=== PATIENT | male | born 1950 | race Caucasian/White ===

== ENCOUNTER → 2016-07-12 | Outpatient (CLI) | payer MEDICARE ==
[2016-07-12 14:55] LABS: ALT 27 U/L (21-72); AST 19 U/L (17-59); Alkaline Phosphatase 63 U/L (38-126); Anion Gap 7 mmol/L; Blood Urea Nitrogen 18 mg/dL (9-20); Calcium 9.6 mg/dL (8.4-10.2); Carbon Dioxide 27 mmol/L (22-30); Chloride 106 mmol/L (98-107); Glucose 92 mg/dL (74-99); Non-African American GFR(MDRD) >60 (>60 ml/min/1.73 sqM); Potassium 5.1 mmol/L (3.5-5.1); Sodium 140 mmol/L (137-145); Total Bilirubin 0.5 mg/dL (0.2-1.3); Total Protein 6.2 g/dL (6.3-8.2)
== END | disposition home or self-care (01) ==
LOC: LABWHC1 14:03
PROVIDERS: ATTEND Internal Medicine
DX: C73 Malignant neoplasm of thyroid gland (principal); E83.52 Hypercalcemia
CPT/HCPCS: 36415; 80053; 83970; 84432; 84439; 84443; 84481

== ENCOUNTER → 2017-07-05 | Outpatient (CLI) | payer MEDICARE ==
[2017-07-05 13:59] LABS: Albumin 3.9 g/dL (3.5-5.0); Calcium 9.5 mg/dL (8.4-10.2); Potassium 5.2 mmol/L (3.5-5.1); Total Bilirubin 0.4 mg/dL (0.2-1.3)
[2017-07-05 14:13] LABS: T4, Free (Free Thyroxine) 1.22 ng/dL (0.78-2.19)
== END | disposition home or self-care (01) ==
LOC: LABWHC1 12:56
PROVIDERS: ATTEND Internal Medicine
DX: C73 Malignant neoplasm of thyroid gland (principal); E78.2 Mixed hyperlipidemia; I10 Essential (primary) hypertension
CPT/HCPCS: 36415; 80053; 80061; 84432; 84439; 84443; 84481; 86800

== ENCOUNTER → 2018-07-09 | Outpatient (CLI) | payer MEDICARE ==
[2018-07-09 18:57] LABS: Albumin/Globulin Ratio 2.5 (1.60-3.17); Calcium 8.8 mg/dL (8.7-10.3); Globulin 1.6 g/dL (1.6-3.3); Potassium 4.9 mmol/L (3.5-5.5); Total Bilirubin 0.4 mg/dL (0.2-1.2); Total Protein 5.6 g/dL (6.2-8.2)
[2018-07-09 19:05] LABS: T4, Free (Free Thyroxine) 1.5 ng/dL (0.80-1.80)
== END | disposition home or self-care (01) ==
LOC: LABWHC1 13:04
PROVIDERS: ATTEND Internal Medicine
DX: C73 Malignant neoplasm of thyroid gland (principal); I10 Essential (primary) hypertension
CPT/HCPCS: 36415; 80053; 84432; 84439; 84443; 84481; 86800

== ENCOUNTER → 2018-10-29 | Outpatient (CLI) | payer MEDICARE, OTHER ==
--- NOTE | 2018-10-30 08:32 | CT ---
EXAMINATION TYPE: CT angio abdomen pelvis DATE OF EXAM: 10/29/2018 COMPARISON: None. HISTORY: Abdominal aortic aneurysm, without rupture. CT DLP: 1513.4 mGycm, Automated Exposure Control for Dose Reduction was Utilized. CONTRAST: CTA scan of the abdomen and pelvis is performed without oral and without and with IV Contrast, patien t injected with 100ml mL of Isovue 370. Aneurysm protocol with 3-D reconstructed images created on an independent workstation and reviewed. FINDINGS: VASCULAR: There is infrarenal abdominal aortic aneurysm measuring up to 3.5 cm AP diameter axial imag e 41 with then some narrowing and larger aneurysm formation just before it iliac bifurcation, the abd ominal aorta measures 4.7 x 4.6 cm transversely axial image 51. There is mild to moderate peripheral mixed plaque in the aorta. There is patent celiac artery and SMA with [id number] calcified plaq ue and patent bilateral single renal arteries with mild to moderate calcified plaque. No significant stenosis is present. Patent JULISA is visualized axial image 44. Aneurysm does not extend into common il iac arteries which have mild to moderate calcified plaque extending into internal and external iliac branches without significant stenosis. Mild to moderate calcified plaque is seen in common femoral ar teries bilaterally without significant stenosis. Length of the aneurysm is roughly 8 cm with 'bilobed ' or 'snowman' shape present. LUNG BASES: Coronary artery calcification in the RCA distribution is present. Overlying sternal wires are noted however likely product of CABG procedure. LIVER/GB: No significant abnormality is appreciated. PANCREAS: No significant abnormality is seen. SPLEEN: No significant abnormality is seen. ADRENALS: Low dense nodularity to both adrenal glands is consistent with benign lipid rich adenomas. For reference there is 2.2 cm right adrenal mass with Hounsfield units averaging -11 axial image 27. KIDNEYS: Somewhat lobulated contour to the bladder with suspected small left-sided diverticulum axial image 68. BOWEL: Incidental normal-appearing appendix from cecum anteriorly. PROSTATE/SEMINAL VESICLES: Enlarged prostate gland consistent with BPH bulging of bladder base. LYMPH NODES: No greater than 1cm abdominal or pelvic lymph nodes are appreciated. OSSEOUS STRUCTURES: Multilevel spurring in the spine. Facet arthropathy lower lumbar levels. OTHER: No significant additional abnormality is seen. IMPRESSION: Confirmation of AAA snowman in shape measuring roughly 8 cm in length without iliac arter y extension, aneurysm measures up to 4.7 cm in diameter as detailed above.
== END | disposition home or self-care (01) ==
LOC: RADCTMAIN 16:16
PROVIDERS: ATTEND Internal Medicine Interventional Cardiology
DX: I71.4 Abdominal aortic aneurysm, without rupture (principal)
CPT/HCPCS: 82565; 84520; 36415; 74174; Q9967

== ENCOUNTER 2018-12-18 07:30 | Inpatient (IN) | payer MEDICARE, OTHER ==
[2018-12-14 10:14] VITALS: BMI 32.6
[~2018-12-18 07:30] MED LIST: ALPRAZolam 0.25 MG TAB PO PRN; SODIUM CHLORIDE 0.9% 1,000 ML in EMPTY BAG 1 BAG IV ONE
[2018-12-18] MEDS ORDERED: ROPIVACAINE 0.2%-NS ON-Q PUMP 1,090 MG, EMPTY PAIN BALL 1 EACH MISCELLANE PRN (10:00)
[2018-12-18] MEDS ORDERED: ePHEDrine SULFATE/0.9% NACL/PF 50 MG/5 ML SYRINGE IV ONE (10:03)
[2018-12-18] MEDS ORDERED: GLYCOPYRROLATE 0.2 MG/ML 2 ML VIAL ONE (10:03)
[2018-12-18] MEDS ORDERED: LIDOCAINE 1% INJ 10MG/ML (20 ML MDV) ONE (10:03)
[2018-12-18] MEDS ORDERED: ROCURONIUM BROMIDE 10 MG/ML 10 ML VIAL IV ONE (10:03)
[2018-12-18] MEDS ORDERED: SUCCINYLCHOLINE CHLORIDE 100 MG/5 ML SYR IV ONE (10:03)
[2018-12-18] MEDS ORDERED: PROTAMINE SULFATE 10 MG/ML 5 ML VIAL IV ONE (10:03)
[2018-12-18] MEDS ORDERED: NEOSTIGMINE 1 MG/ML 10 ML VIAL ONE (10:03)
[2018-12-18] MEDS ORDERED: PROPOFOL 10 MG/ML 20 ML VIAL IV ONE (10:03)
[2018-12-18] MEDS ORDERED: PHENYLEPHRINE-0.9% NACL SYG 1 MG/10 ML SYRINGE ONE (10:03)
[2018-12-18] MEDS ORDERED: SODIUM CHLORIDE 0.9% 100 ML BAG ONE (10:03)
[2018-12-18] MEDS ORDERED: WATER FOR INJECTION, STERILE 10 ML VIAL IV ONE (10:03)
[2018-12-18] MEDS ORDERED: fentaNYL (PF) 50 MCG/ML 2 ML AMP ONE (10:03)
[2018-12-18] MEDS ORDERED: ceFAZolin 1,000 MG VIAL ONE (10:03)
[2018-12-18] MEDS ORDERED: MIDAZOLAM 2 MG/2 ML VIAL ONE (10:03)
[2018-12-18] MEDS ORDERED: HEPARIN SODIUM,PORCINE 10,000 UNIT/ML 1 ML VIAL ONE (10:03)
[2018-12-18] MEDS ORDERED: LACTATED RINGERS 1,000 ML IV ONE (11:30)
[2018-12-18] MEDS ORDERED: IOPAMIDOL-250 100ML BTL INTRAARTER ONE ×2 (12:10→12:11)
[2018-12-18] MEDS ORDERED: SODIUM CHLORIDE 0.9% 1,000 ML IV SCH (12:15)
--- NOTE | 2018-12-18 12:36 | P.PCN ---
Date of Procedure: 12/18/18 Operative Findings: AN AORTIC STENT GRAFT PROCEDURE Performing physician: MD Isiah Canales DO Procedure performed: Successful percutaneous repair of infrarenal abdominal aortic aneurysm using the 26 mm elevation IX with an excellent angiographic results and without any evidence of endoleak. Indication: This is a pleasant 68-year-old gentleman who was diagnosed recently with infrarenal abdominal aortic aneurysm by aortic duplex study. That was subsequently confirmed by a CTA of the aorta which revealed an abdominal aortic aneurysm of 4.6 cm. The patient would like to get the procedure done. Complication: None Level of sedation: The procedure was performed under general anesthesia. The procedure duration was 82 minutes. Procedure description: After obtaining an informed consent the patient was brought to the cardiac biology laboratory assistant. General anesthesia was performed with the NAILING MACHINE OPERATOR in the room. Subsequently we axis both common femoral arteries percutaneous the. That was performed using an 18-gauge Cook needle with adjunctive use of ultrasound. We placed 2. Closed on each side at 10 and 12 clock. The Perclose was performed over an 035 Glidewire. After the Perclose was placed we did place 28-[place]yr[place] 11 cm sheath in both common femoral arteries. At that point anticoagulation was initiated using heparin and the patient was given 6000 use of heparin IV. Continuous ACT monitoring was done throughout the procedure. We decided to go with the main body on the right side. An angiogram initially was performed to measure the arteries length and characterize and anatomy. The angiogram was performed using pigtail catheter and her digital subtraction. The pigtail catheter was placed at the level of the renal arteries. Subsequently we removed the 8-[place]yr[place] 11 cm sheath on the right side after we inserted a stiff 035 Lunderquist wire. After that we loaded 26 mm operation IX aortic body over the guidewire. The aortic body was advanced under fluoroscopy guidance until the implant radiopaque marker where about 1 cm proximal to the intended landing site.. The body was oriented to the desired position for appropriate axis to the contralateral aortic body limp. We retracted the delivery system outer sheath and total the sheath retraction Knob met handle. We verified the aortic body radiopaque marker and long delivery system radiopaque marker to be in the correct position. Subsequently we deployed the first segment of the proximal stent by turning the first stent release Knob quarter turn counterclockwise and then the Knob was pulled out with the attached wire to it. We precisely positioned the implant radiopaque marker at final proximal landing site. Contrast injection was used for verification. Subsequently we retracted the angiographic catheter away from the proximal stent graft. Then we deployed the reminder of the proximal stent by turning the second stent release knob quarter turn counterclockwise and then it was pulled out with the attached wire to it. After that we started injecting the polymer where intermittent fluoroscopy was performed. Subsequently we loaded 20 20 by 120 mm iliac limb delivery system over the contralateral guidewire. Then under fluoroscopy guidance we inserted the contralateral iliac limb till the proximal iliac limb radiopaque marker aligned with the most proximal have fraying of the aortic body. Subsequently we confirmed the proximal and distal iliac limb radiopaque marker at the appropriate location. The contralateral iliac Stoney was then deployed. Subsequently we did perform the same stent on the ipsilateral limb but this time using 18 x 1 20 limb delivery system. We did balloon the aortic stent graft using Q 50 balloon. Iliac limbs well balloon and using 10 x 40 mm balloon. The final angiographic results which was performed using pigtail catheter showed no evidence of endoleak. Subsequently we did deploy the 2 Perclose with good hemostasis by the end. The procedure was completed without any complication. Postprocedure management: ICU admission Monitor the blood pressure Follow-up with the patient
[2018-12-18 13:31] LABS: Glucose,Whole Blood 85 mg/dL (75-99)
[2018-12-18] MEDS ORDERED: hydrALAZINE HCL 20 MG/ML 1 ML VIAL IVP PRN (14:25)
--- NOTE | 2018-12-18 15:40 | IR ---
EXAMINATION TYPE: IR oil tanker captain aorta DATE OF EXAM: 12/18/2018 COMPARISON: NONE HISTORY: Fluoroscopy time. Fluoroscopy was provided to the referring clinician.
[2018-12-18] MEDS: CARVEDILOL 12.5 MG TAB PO SCH (18:00)
[2018-12-18] MEDS: VIT A,C & E-LUTEIN-MINERALS 1 EACH TAB PO SCH (20:12)
[2018-12-18] MEDS ORDERED: ATORVASTATIN 40 MG TAB PO SCH (21:00)
[2018-12-18] MEDS ORDERED: LOSARTAN 50 MG TAB PO SCH (21:00)
[2018-12-19 05:11] LABS: Basophils # (A) 0.1 k/uL (0-0.2); Basophils % (A) 1 %; Eosinophils # (A) 0.5 k/uL (0-0.7); Eosinophils % (A) 3 %; HCT 41.2 % (39.0-53.0); HGB 13.8 gm/dL (13.0-17.5); Lymphocytes # (A) 1.6 k/uL (1.0-4.8); Lymphocytes % (A) 11 %; MCH 34.9 pg (25.0-35.0); MCHC 33.6 g/dL (31.0-37.0); MCV 103.9 fL (80.0-100.0); Macrocytosis Slight; Mean Platelet Volume 7.4; Monocytes # (A) 0.8 k/uL (0-1.0); Monocytes % (A) 5 %; Neutrophils # (A) 11.3 k/uL (1.3-7.7); Neutrophils % (A) 79 %; Platelet Count 185 k/uL (150-450); RBC 3.96 m/uL (4.30-5.90); RDW 12.6 % (11.5-15.5); WBC 14.4 k/uL (3.8-10.6)
[2018-12-19 05:20] LABS: African American GFR (CKD) >90 (>60 ml/min/1.73 sqM)
[2018-12-19] MEDS: CARVEDILOL 12.5 MG TAB PO SCH (06:17)
[2018-12-19] MEDS ORDERED: LEVOTHYROXINE 75 MCG TAB PO SCH (06:30)
[2018-12-19 07:20] LABS: Anion Gap 7 mmol/L; Blood Urea Nitrogen 14 mg/dL (9-20); Carbon Dioxide 24 mmol/L (22-30); Chloride 105 mmol/L (98-107); Glucose 91 mg/dL (74-99); Potassium 4.2 mmol/L (3.5-5.1); Sodium 136 mmol/L (137-145)
[2018-12-19] MEDS ORDERED: TAMSULOSIN 0.4 MG CAP.ER.24H PO SCH (09:00)
[2018-12-19] MEDS ORDERED: ASPIRIN 81 MG PO SCH (09:00)
[2018-12-19] MEDS ORDERED: MULTIVITAMINS, THERA 1 EACH TAB PO SCH (09:00)
[2018-12-19 09:20] VITALS: TEMP 98.2
[2018-12-19] MEDS: VIT A,C & E-LUTEIN-MINERALS 1 EACH TAB PO SCH (09:24)
[2018-12-19 10:02] VITALS: PULSE 50; RESP 15
--- NOTE | 2018-12-19 11:09 | P.DS ---
Providers Date of admission: 12/18/18 07:44 Attending physician: Jewel Altman Consults: 12/18/18 05:59 Consult to Anesthesia Routine Consulting Provider: Anesthesia,Services Consult Reason/Comments: General anesthesia for Aortic Stent procedure Primary care physician: Marley Bautista [facility] Course: This is a very pleasant 68-year-old gentleman who underwent yesterday successful percutaneous repair of infrarenal abdominal aortic aneurysm using the 26 mm Ovation device with an excellent results and without any evidence of endoleak. The procedure was performed from the right and left groin and we did perform hemostasis using Perclose. I'll follow-up with the patient today, he is doing good and he is asymptomatic. Both groins are soft and nontender and without any bruises. The patient is going to be discharged home on the medication he came in with and I will follow-up with the patient next week in the office. Plan - Discharge Summary Discharge Rx Participant: No New Discharge Prescriptions: Continue Tamsulosin [Flomax] 0.4 mg PO DAILY Losartan Potassium [Cozaar] 100 mg PO HS Levothyroxine Sodium [Synthroid] 150 mcg PO DAILY Carvedilol [Coreg] 25 mg PO BID Atorvastatin [Lipitor] 40 mg PO HS Multivitamins, Thera [Multivitamin (formulary)] 1 tab PO DAILY Fish Oil/Dha/Epa [Fish Oil 1,200 mg Fish Oil] 1 each PO HS Aspirin [Adult Low Dose Aspirin EC] 81 mg PO DAILY Vit C/E/Zn/Coppr/Lutein/Zeaxan [Preservision Areds 2 Softgel] 1 each PO BID Discharge Medication List Aspirin [Adult Low Dose Aspirin EC] 81 mg PO DAILY 12/14/18 [History] Atorvastatin [Lipitor] 40 mg PO HS 12/14/18 [History] Carvedilol [Coreg] 25 mg PO BID 12/14/18 [History] Fish Oil/Dha/Epa [Fish Oil 1,200 mg Fish Oil] 1 each PO HS 12/14/18 [History] Levothyroxine Sodium [Synthroid] 150 mcg PO DAILY 12/14/18 [History] Losartan Potassium [Cozaar] 100 mg PO HS 12/14/18 [History] Multivitamins, Thera [Multivitamin (formulary)] 1 tab PO DAILY 12/14/18 [History] Tamsulosin [Flomax] 0.4 mg PO DAILY 12/14/18 [History] Vit C/E/Zn/Coppr/Lutein/Zeaxan [Preservision Areds 2 Softgel] 1 each PO BID 12/14/18 [History] Follow up Appointment(s)/Referral(s): Jewel Altman MD [STAFF PHYSICIAN] - 12/25/18 1:00 pm (MondayDecember 25 at 1:00pm ) Patient Instructions/Handouts: Endovascular Aneurysm Repair of Abdominal Aorta (DC)
[2018-12-19 11:21] VITALS: BP 109/78
== END 2018-12-19 11:51 | disposition home or self-care (01) | DRG 269 ==
LOC: 2ORMAIN 07:44 → 2SICU 12:07
PROVIDERS: ADMIT Internal Medicine Interventional Cardiology; ATTEND Internal Medicine Interventional Cardiology
PROC: 04V03DZ Restriction of Abdominal Aorta with Intraluminal Device, Percutaneous Approach (ICD-10-PCS; principal; 2018-12-18 09:50)
DX: I71.4 Abdominal aortic aneurysm, without rupture (principal); I42.9 Cardiomyopathy, unspecified; I65.22 Occlusion and stenosis of left carotid artery; R40.2363 Coma scale, best motor response, obeys commands, at hospital admission; R40.2143 Coma scale, eyes open, spontaneous, at hospital admission; R40.2253 Coma scale, best verbal response, oriented, at hospital admission; I10 Essential (primary) hypertension; I25.10 Atherosclerotic heart disease of native coronary artery without angina pectoris; E78.5 Hyperlipidemia, unspecified; E78.00 Pure hypercholesterolemia, unspecified; I25.2 Old myocardial infarction; Z79.82 Long term (current) use of aspirin; Z79.890 Hormone replacement therapy; Z79.899 Other long term (current) drug therapy; Z95.1 Presence of aortocoronary bypass graft; Z87.891 Personal history of nicotine dependence; Z86.79 Personal history of other diseases of the circulatory system; Z82.49 Family history of ischemic heart disease and other diseases of the circulatory system
CPT/HCPCS: 80048; 85025; 85347; 86850; 86900; 86901; 86920

== ENCOUNTER → 2019-01-08 | Outpatient (CLI) | payer MEDICARE, OTHER ==
[2019-01-08 18:29] LABS: African American GFR (CKD) 70.6 (60.0-200.0); Albumin/Globulin Ratio 2.67 (1.60-3.17); Anion Gap 4.4 mmol/L (4.00-12.00); BUN/Creat Ratio 13.33 Ratio (12.00-20.00); Calcium 9.5 mg/dL (8.7-10.3); Carbon Dioxide 29.6 mmol/L (21.6-31.8); Globulin 1.5 g/dL (1.6-3.3); Potassium 4.8 mmol/L (3.5-5.5); Total Bilirubin 0.4 mg/dL (0.2-1.2); Total Protein 5.5 g/dL (6.2-8.2)
[2019-01-08 18:35] LABS: T4, Free (Free Thyroxine) 1.5 ng/dL (0.80-1.80)
== END | disposition home or self-care (01) ==
LOC: LABWHC1 12:32
PROVIDERS: ATTEND Internal Medicine
DX: I10 Essential (primary) hypertension (principal); C73 Malignant neoplasm of thyroid gland
CPT/HCPCS: 36415; 80053; 84432; 84439; 84443; 84481

== ENCOUNTER → 2019-02-05 | Outpatient (CLI) | payer MEDICARE, OTHER ==
--- NOTE | 2019-02-05 12:22 | CT ---
EXAMINATION TYPE: CT angio abdomen pelvis DATE OF EXAM: 02/05/2019 COMPARISON: CTA abdomen and pelvis October 29, 2018 HISTORY: Follow up stent placement done in November 2018 CT DLP: 2786.8 mGycm, Automated Exposure Control for Dose Reduction was Utilized. CONTRAST: CTA scan of the abdomen and pelvis is performed without oral and without and with IV Contrast, patien t injected with 100 mL of Isovue 370. Three-D reconstructed images are created by workstation and rev iewed. Stent graft protocol. FINDINGS: VASCULAR: Persistent focal [place] infrarenal AAA measuring up to 4.0 cm AP diameter axial image 24 se alexi 10 (increased in size from 3.5 cm prior study image 41 series 5) with second larger aneurysm com ponent inferior to this measuring 4.8 x 4.5 cm image 34, not significantly changed in size from prior . There is new aortobiiliac stent graft beginning before celiac artery origin. There is a patent floyd ac artery, SMA, bilateral single renal arteries with persistent moderate peripheral calcified plaque along the course of the SMA. Patent JULISA is redemonstrated. Dynamic imaging shows patency of the stent graft into internal and external iliac artery branches bilaterally which show persistent moderate pl aque without significant stenosis. Eltm-ye-[id number] peripheral plaque in the femoral arteries of bila teral groin is redemonstrated. There is abnormal enhancement anterior to the graft at site of more pr oximal elongated aneurysm axial image 42 series 7. This eventually becomes less dense on delayed imag es. The area of concern measures roughly 12 x 9 mm with curvilinear shape. No definitive abnormal fee ding vessel identified. LUNG BASES: Redemonstration of partial visualization of sternal wires from CABG procedure. LIVER/GB: No significant abnormality is appreciated. PANCREAS: No significant abnormality is seen. SPLEEN: No significant abnormality is seen. ADRENALS: Stable low density adrenal masses with Hounsfield units less than 10 on precontrast images consistent with benign lipid rich adenomas. KIDNEYS: No renal calculi bilaterally. Symmetric cortical medullary uptake and excretion is seen wit hout hydronephrosis bilaterally. BOWEL: Incidental normal gas filled appendix from cecum right lower quadrant. PROSTATE/SEMINAL VESICLES: Enlarged prostate gland consistent with BPH bulges on bladder base. LYMPH NODES: No greater than 1cm abdominal or pelvic lymph nodes are appreciated. OSSEOUS STRUCTURES: Facet arthropathy lower lumbar levels redemonstrated. OTHER: No significant additional abnormality is seen. IMPRESSION: New aortobiiliac stent graft which is patent. Redemonstration of [place] snowman type shap ed aneurysm. The more proximal component shows evidence of endoleak and increased size from prior fahad dy. The larger distal component is stable.
== END | disposition home or self-care (01) ==
LOC: RADCTMAIN 09:52
PROVIDERS: ATTEND Internal Medicine Interventional Cardiology
DX: I71.4 Abdominal aortic aneurysm, without rupture (principal)
CPT/HCPCS: 82565; 84520; 36415; 74174; Q9967

== ENCOUNTER → 2020-03-02 | Outpatient (CLI) | payer MEDICARE, OTHER ==
[2020-03-02 15:06] LABS: T4, Free (Free Thyroxine) 1.31 ng/dL (0.78-2.19)
--- NOTE | 2020-03-02 16:01 | CT ---
EXAMINATION TYPE: CT angio abdomen pelvis DATE OF EXAM: 03/02/2020 COMPARISON: CTA aorta February 05, 2019 HISTORY: Abdominal aortic aneurysm, without rupture, with stent CT DLP: 1917.9 mGycm, Automated Exposure Control for Dose Reduction was Utilized. CONTRAST: CTA scan of the abdomen and pelvis is performed without oral and without and with IV Contrast, patien t injected with 100 mL of Isovue 370. Stent graft protocol with 3-D reconstruction images created and independent workstation and reviewed. FINDINGS: VASCULAR: Persistent focal enterprise infrarenal AAA measuring up to 4.0 .3.9 cm AP diameter axial image 28 series 3 is stable from most recent study with second larger aneurysm component inferior to this m easuring 4.8 x 4 4.6 cm axial image 36, not significantly changed in size from most recent prior. The re is persistent aortobiiliac stent graft beginning before celiac artery origin. There is a patent ce liac artery, SMA, and bilateral single renal arteries with persistent moderate peripheral calcified p laque along the course of the SMA. Dynamic imaging shows patency of the stent graft into internal and external iliac artery branches bilaterally which show persistent moderate plaque without significant stenosis. Moderate mixed peripheral plaque in the femoral arteries of bilateral groin is redemonstra rhonda. There is persistent focus of abnormal enhancement anterior to the graft at site of more proximal elongated in AP diameter aneurysm axial image 34 series 7. This eventually becomes less dense on del ayed images. The area of concern measures slightly smaller versus prior study with nodular shaped sup eriorly and more curvilinear shape inferiorly on axial images 35 and 36 respectively sagittal images show 2.3 cm craniocaudal length of the area of concern image 27 series 15. This is an regional wall w as suspected patent JULISA but may be a tiny feeding lumbar vessel. No new areas of abnormal enhancement outside stent graft within the aorta identified. LUNG BASES: Redemonstration of coronary artery calcification in the RCA distribution. LIVER/GB: No significant abnormality is appreciated. PANCREAS: No significant abnormality is seen. SPLEEN: No significant abnormality is seen. ADRENALS: Stable low density adrenal masses with Hounsfield units less than 10 on precontrast images consistent with benign lipid rich adenomas bilaterally. KIDNEYS: No renal calculi bilaterally. Symmetric cortical medullary uptake and excretion is seen wit hout hydronephrosis bilaterally. No new cortical thinning. BOWEL: No suspicious abnormality. PROSTATE/SEMINAL VESICLES: Enlarged prostate gland consistent with BPH bulges on bladder base is rede monstrated. LYMPH NODES: No greater than 1cm abdominal or pelvic lymph nodes are appreciated. OSSEOUS STRUCTURES: Facet arthropathy lower lumbar levels redemonstrated. OTHER: Small fat-containing right inguinal hernia redemonstrated. IMPRESSION: Persistent aortobiiliac stent graft which is patent. Redemonstration of enterprise snowman ty pe shaped aneurysm. The more proximal component shows persistent evidence of endoleak, suspected type II type. No significant change in size of aneurysm noted from most recent CTA.
== END | disposition home or self-care (01) ==
LOC: RADCTMAIN 13:42
PROVIDERS: ATTEND Internal Medicine Interventional Cardiology
DX: I71.4 Abdominal aortic aneurysm, without rupture (principal); C73 Malignant neoplasm of thyroid gland; Z95.828 Presence of other vascular implants and grafts
CPT/HCPCS: 84439; 84481; 82565; 84443; 84520; 84432; 36415; 74174; Q9967

== ENCOUNTER 2020-09-04 02:04 | Inpatient (IN) | payer MEDICARE, OTHER ==
[2020-09-04] MEDS ORDERED: DILTIAZEM DRIP BOLUS FROM BAG 1 MG SOLN IV ONE (02:41)
[2020-09-04] MEDS ORDERED: ENOXAPARIN 100 MG/ML SYRINGE SQ STA (02:41)
[2020-09-04] MEDS ORDERED: DILTIAZEM 125 MG in SODIUM CHLORIDE 0.9% 100 ML IV SCH (02:45)
[2020-09-04 02:50] LABS: Basophils # (A) 0.1 k/uL (0-0.2); Basophils % (A) 1 %; Eosinophils # (A) 0.4 k/uL (0-0.7); Eosinophils % (A) 3 %; HCT 46.4 % (39.0-53.0); Lymphocytes # (A) 3.3 k/uL (1.0-4.8); Lymphocytes % (A) 26 %; MCH 33.7 pg (25.0-35.0); MCHC 32.3 g/dL (31.0-37.0); MCV 104.3 fL (80.0-100.0); Macrocytosis Slight; Mean Platelet Volume 8.5; Monocytes # (A) 0.6 k/uL (0-1.0); Monocytes % (A) 5 %; Neutrophils # (A) 7.8 k/uL (1.3-7.7); Neutrophils % (A) 63 %; Platelet Count 173 k/uL (150-450); RBC 4.45 m/uL (4.30-5.90); RDW 13.3 % (11.5-15.5); WBC 12.5 k/uL (3.8-10.6)
--- NOTE | 2020-09-04 03:05 | ED ---
Arrhythmia/Palpitations HPI - General Chief Complaint: Arrhythmia/Palpitations Stated Complaint: AFib Time Seen by Provider: 09/04/20 02:21 Source: patient, EMS Mode of arrival: EMS Limitations: no limitations - History of Present Illness Initial Comments: This patient is a 70-year-old man who presents with the concern that he has gone back into atrial fibrillation. The patient states that he had some brief atrial fibrillation after his coronary bypass operation years ago. Tonight he experienced similar symptoms. He was lying in bed and he experienced some pressure at the base of his neck and funny feeling at the upper portion of his chest. Patient denies kaylin pain. No dyspnea, diaphoresis, nausea or vomiting. MD Complaint: atrial fibrillation -: hour(s) Context: occurred during rest Arrhythmia History: atrial fibrillation Associated Symptoms: denies other symptoms - Related Data Home Medications Medication Instructions Recorded Confirmed Aspirin [Adult Low Dose Aspirin EC] 81 mg PO DAILY 12/14/18 09/04/20 Atorvastatin [Lipitor] 40 mg PO HS 12/14/18 09/04/20 Carvedilol [Coreg] 25 mg PO BID 12/14/18 09/04/20 Fish Oil/Dha/Epa [Fish Oil 1,200 1 cap PO HS 12/14/18 09/04/20 mg Fish Oil] Levothyroxine Sodium [Synthroid] 150 mcg PO DAILY 12/14/18 09/04/20 Multivitamins, Thera [Multivitamin 1 tab PO DAILY 12/14/18 09/04/20 (formulary)] Tamsulosin [Flomax] 0.4 mg PO DAILY 12/14/18 09/04/20 Vit C/E/Zn/Coppr/Lutein/Zeaxan 1 cap PO BID 12/14/18 09/04/20 [Preservision Areds 2 Softgel] Previous Rx's Medication Instructions Recorded Apixaban [Eliquis] 5 mg PO BID #60 tab 09/04/20 Famotidine [Pepcid] 20 mg PO BID #30 tablet 09/04/20 Losartan Potassium [Cozaar] 50 mg PO HS #0 09/04/20 Allergies Allergy/AdvReac Type Severity Reaction Status Date / Time No Known Allergies Allergy Verified 09/04/20 06:55 Review of Systems ROS Statement: Those systems with pertinent positive or pertinent negative responses have been documented in the HPI. ROS Other: All systems not noted in ROS Statement are negative. Constitutional: Denies: fever, chills ENT: Reports: as per HPI, throat pain Respiratory: Denies: cough, dyspnea, wheezes, hemoptysis Cardiovascular: Denies: chest pain, palpitations, orthopnea, edema, syncope Gastrointestinal: Denies: abdominal pain, nausea, vomiting Genitourinary: Denies: dysuria, hematuria Musculoskeletal: Denies: back pain Skin: Denies: rash Neurological: Denies: headache, weakness, numbness Past Medical History Past Medical History: Cancer, Hyperlipidemia, Hypertension, Myocardial Infarction ([place]), Prostate Disorder, Thyroid Disorder Additional Past Medical History / Comment(s): "micro-cancer thyroid". aneurysm Last Myocardial Infarction Date:: 2007 History of Any Multi-Drug Resistant Organisms: None Reported Past Surgical History: Coronary Bypass/CABG Additional Past Surgical History / Comment(s): throidectomy, triple bypass,parathyroid removed Past Anesthesia/Blood Transfusion Reactions: No Reported Reaction Past Psychological History: No Psychological Hx Reported Past Alcohol Use History: None Reported Additional Past Alcohol Use History / Comment(s): smoker for 20 years 1ppd quit 2007 Past Drug Use History: None Reported - Past Family History Brother(s) Additional Family Medical History / Comment(s): 2 brothers aneurysm-1 General Exam Limitations: no limitations General appearance: alert, in no apparent distress Head exam: Present: atraumatic, normocephalic Eye exam: Present: normal appearance. Absent: scleral icterus, conjunctival injection Neck exam: Present: normal inspection Respiratory exam: Present: normal lung sounds bilaterally. Absent: respiratory distress, wheezes, rales, rhonchi, stridor Cardiovascular Exam: Present: tachycardia, irregular rhythm, systolic murmur. Absent: diastolic murmur, rubs, gallop GI/Abdominal exam: Present: soft. Absent: distended, tenderness, guarding, rebound, rigid, mass Extremities exam: Present: normal inspection, normal capillary refill. Absent: pedal edema, calf tenderness Back exam: Present: normal inspection. Absent: CVA tenderness (R), CVA tender ness (L) Neurological exam: Present: alert Skin exam: Present: warm, dry, intact, normal color. Absent: rash Course Vital Signs 09/04/20 09/04/20 09/04/20 02:10 03:10 04:10 Pulse Rate 111 H 120 H 92 Pulse Rate [ Etl Consultant ] Respiratory 16 16 16 Rate Blood Pressure 120/97 121/78 95/66 Blood Pressure [Right Arm] O2 Sat by Pulse 98 98 97 Oximetry 09/04/20 09/04/20 09/04/20 04:52 05:10 06:10 Pulse Rate 87 92 Pulse Rate [ Etl Consultant ] Respiratory 18 16 16 Rate Blood Pressure 98/66 92/61 Blood Pressure [Right Arm] O2 Sat by Pulse 96 95 99 Oximetry 09/04/20 09/04/20 08:00 12:00 Pulse Rate Pulse Rate [ 55 L 65 Etl Consultant ] Respiratory 18 18 Rate Blood Pressure Blood Pressure 116/85 116/85 [Right Arm] O2 Sat by Pulse 96 98 Oximetry EKG Findings - EKG Results: EKG: interpreted by ANAY, normal axis EKG shows: atrial fibrillation (With PVC , Rate 124 bpm) - IA, Pacemaker, Normal: Myocardial infarction: inferior IA (old age indeterminate) (Possible old inferior infarct) Medical Decision Making - Lab Data Result diagrams: 09/04/20 02:35 09/04/20 02:35 Lab Results 09/04/20 09/04/20 09/04/20 Range/Units 02:35 02:35 02:35 WBC 12.5 H (3.8-10.6) k/uL RBC 4.45 (4.30-5.90) m/uL Hgb 15.0 (13.0-17.5) gm/dL Hct 46.4 (39.0-53.0) % MCV 104.3 H (80.0-100.0) fL MCH 33.7 (25.0-35.0) pg MCHC 32.3 (31.0-37.0) g/dL RDW 13.3 (11.5-15.5) % Plt Count 173 (150-450) k/uL MPV 8.5 Neutrophils % 63 % Lymphocytes % 26 % Monocytes % 5 % Eosinophils % 3 % Basophils % 1 % Neutrophils # 7.8 H (1.3-7.7) k/uL Lymphocytes # 3.3 (1.0-4.8) k/uL Monocytes # 0.6 (0-1.0) k/uL Eosinophils # 0.4 (0-0.7) k/uL Basophils # 0.1 (0-0.2) k/uL Macrocytosis Slight PT 10.0 (9.0-12.0) sec INR 0.9 (<1.2) APTT 24.6 (22.0-30.0) sec Sodium 140 (137-145) mmol/L Potassium 3.8 (3.5-5.1) mmol/L Chloride 108 H (98-107) mmol/L Carbon Dioxide 26 (22-30) mmol/L Anion Gap 6 mmol/L BUN 21 H (9-20) mg/dL Creatinine 0.96 (0.66-1.25) mg/dL Est GFR (CKD-EPI)AfAm >90 (>60 ml/min/1.73 sqM) Est GFR (CKD-EPI)NonAf 79 (>60 ml/min/1.73 sqM) Glucose 110 H (74-99) mg/dL Calcium 9.4 (8.4-10.2) mg/dL Magnesium 2.2 (1.6-2.3) mg/dL Total Bilirubin 0.2 (0.2-1.3) mg/dL AST 24 (17-59) U/L ALT 17 (4-49) U/L Alkaline Phosphatase 81 (38-126) U/L Troponin I (0.000-0.034) ng/mL Total Protein 5.9 L (6.3-8.2) g/dL Albumin 3.7 (3.5-5.0) g/dL 09/04/20 Range/Units 02:35 WBC (3.8-10.6) k/uL RBC (4.30-5.90) m/uL Hgb (13.0-17.5) gm/dL Hct (39.0-53.0) % MCV (80.0-100.0) fL MCH (25.0-35.0) pg MCHC (31.0-37.0) g/dL RDW (11.5-15.5) % Plt Count (150-450) k/uL MPV Neutrophils % % Lymphocytes % % Monocytes % % Eosinophils % % Basophils % % Neutrophils # (1.3-7.7) k/uL Lymphocytes # (1.0-4.8) k/uL Monocytes # (0-1.0) k/uL Eosinophils # (0-0.7) k/uL Basophils # (0-0.2) k/uL Macrocytosis PT (9.0-12.0) sec INR (<1.2) APTT (22.0-30.0) sec Sodium (137-145) mmol/L Potassium (3.5-5.1) mmol/L Chloride (98-107) mmol/L Carbon Dioxide (22-30) mmol/L Anion Gap mmol/L BUN (9-20) mg/dL Creatinine (0.66-1.25) mg/dL Est GFR (CKD-EPI)AfAm (>60 ml/min/1.73 sqM) Est GFR (CKD-EPI)NonAf (>60 ml/min/1.73 sqM) Glucose (74-99) mg/dL Calcium (8.4-10.2) mg/dL Magnesium (1.6-2.3) mg/dL Total Bilirubin (0.2-1.3) mg/dL AST (17-59) U/L ALT (4-49) U/L Alkaline Phosphatase (38-126) U/L Troponin I <0.012 (0.000-0.034) ng/mL Total Protein (6.3-8.2) g/dL Albumin (3.5-5.0) g/dL Critical Care Time Critical Care Time: Yes (30 minutes) Disposition Clinical Impression: Atrial fibrillation Disposition: ADMITTED IP TO THIS [facility] Condition: Good
[2020-09-04 03:11] LABS: ALT 17 U/L (4-49); AST 24 U/L (17-59); African American GFR (CKD) >90 (>60 ml/min/1.73 sqM); Albumin 3.7 g/dL (3.5-5.0); Alkaline Phosphatase 81 U/L (38-126); Anion Gap 6 mmol/L; Blood Urea Nitrogen 21 mg/dL (9-20); Calcium 9.4 mg/dL (8.4-10.2); Carbon Dioxide 26 mmol/L (22-30); Chloride 108 mmol/L (98-107); Glucose 110 mg/dL (74-99); Magnesium 2.2 mg/dL (1.6-2.3); Non-African American GFR(CKD) 79 (>60 ml/min/1.73 sqM); Potassium 3.8 mmol/L (3.5-5.1); Sodium 140 mmol/L (137-145); Total Bilirubin 0.2 mg/dL (0.2-1.3); Total Protein 5.9 g/dL (6.3-8.2)
[2020-09-04 03:28] LABS: Partial Thromboplastin Time 24.6 sec (22.0-30.0)
[2020-09-04 03:29] LABS: INR 0.9 (<1.2)
--- NOTE | 2020-09-04 03:30 | XR ---
EXAMINATION TYPE: XR chest 1V portable DATE OF EXAM: 09/04/2020 COMPARISON: 01/04/2010 HISTORY: Dysrhythmia. TECHNIQUE: FINDINGS: There is no heart failure. There is slight coarsening of interstitial markings. There are s ternal wires. Lisfranc angles are clear. Heart size is fairly normal. There are chest leads. IMPRESSION: Minimal pulmonary fibrotic changes. No acute lung disease. Lung markings increased adam red to old exam.
[2020-09-04] MEDS ORDERED: NITROGLYCERIN SL TABS 0.4 MG TAB SUBLINGUAL PRN (04:33)
[2020-09-04] MEDS ORDERED: SODIUM CHLORIDE 0.9% 1,000 ML IV SCH (04:45)
[2020-09-04] MEDS ORDERED: ENOXAPARIN 100 MG/ML SYRINGE SQ SCH ×2 (04:45→15:00)
[2020-09-04] MEDS ORDERED: LEVOTHYROXINE 75 MCG TAB PO SCH (06:30)
[2020-09-04] MEDS ORDERED: TAMSULOSIN 0.4 MG CAP.ER.24H PO SCH (09:00)
[2020-09-04] MEDS ORDERED: VIT A,C & E-LUTEIN-MINERALS 1 EACH TAB PO SCH (09:00)
[2020-09-04] MEDS ORDERED: carvediloL 12.5 MG TAB PO SCH (09:00)
[2020-09-04] MEDS ORDERED: ASPIRIN 81 MG PO SCH (09:00)
[2020-09-04 10:12] VITALS: BP 116/85; RESP 18
--- NOTE | 2020-09-04 12:44 | P.CRDCN ---
History of Present Illness Consult date: 09/04/20 History of present illness: HISTORY OF PRESENT ILLNESS: This is a 70-year-old male with a past medical history significant for coronary artery disease with history of CABG x 3 in 2007, atrial fibrillation after his CABG, history of infrarenal abdominal aortic aneurysm with endovascular repair, carotid stenosis with previous endarterectomy, hypertension, and hyperlipidemia. Patient follows in the office with Dr. Altman. We have been asked to see the patient in consultation for new onset atrial fibrillation. Patient examined at the bedside. Patient states last night he was restless in bed and was feeling "funny". Patient states he got up and took his vital signs and noticed his heart rate was around 115. Patient suspected he may be in atrial fibrillation again so he came to the emergency room for further evaluation. EKG completed in the emergency room revealed A. fib with RVR. The patient was started on a Cardizem drip. At the time of my examination, the patient has converted to sinus rhythm. His Cardizem drip has been shut off. His heart rate is currently in the 50s. Patient currently denies chest pain or pressure. He denies shortness of breath. He denies dizziness or lightheadedness. He denies feeling palpitations. EKG reveals A. fib with RVR Chest xray minimal pulmonary fibrotic changes. No acute lung disease. Lung markings increased compared to old exam. Laboratory data: WBC 12.5. Hemoglobin 15.0. Platelet count 173. Sodium 140. Potassium 3.8. BUN 21. Creatinine 0.96. Magnesium 2.2. troponin negative 2. Current home cardiac medications include aspirin 81 mg daily, losartan 100 mg at night, carvedilol 25 mg twice a day, and Lipitor 40 mg daily Most recent echocardiogram obtained in May 2017 revealed ejection fraction 50%. Mild tricuspid regurgitation. Patient underwent nuclear stress test in July 2020 at the cardiology office revealing abnormal myocardial perfusion imaging with evidence of fixed defect of moderate size and moderate intensity involving the inferior wall of the left ventricle associated with mild hypokinesia. EF 47%. REVIEW OF SYSTEMS: At the time of my exam: CONSTITUTIONAL: Denies fever or chills. HEENT: Denies blurred vision, vision changes, or eye pain. Denies hemoptysis CARDIOVASCULAR: Denies chest pain. Denies orthopnea. Denies PND. Denies palpitations RESPIRATORY: Denies shortness of breath. GASTROINTESTINAL: Denies abdominal pain. Denies nausea or vomiting. HEMATOLOGIC: Denies bleeding disorders. GENITOURINARY: Denies any blood in urine. SKIN: Denies pruitis. Denies rash. PHYSICAL EXAM: VITAL SIGNS: Reviewed. GENERAL: Well-developed in no acute distress. HEENT: Head is normocephalic. Pupils are equal, round. Sclerae anicteric. Mucous membranes of the mouth are moist. Neck supple. No JVD or thyromegaly LUNGS: Respirations even and unlabored. Lungs essentially clear to auscultation bilaterally. HEART: Regular rate and rhythm. S1 and S2 heard. ABDOMEN: Soft. Nondistended. Nontender. EXTREMITIES: Normal range of motion. No clubbing or cyanosis. Peripheral pulses intact. No lower extremity edema NEUROLOGIC: Awake and alert. Oriented x 3. ASSESSMENT: New-onset atrial fibrillation with RVR Coronary artery disease with previous CABG 3 in 2007 History of infrarenal abdominal aortic aneurysm with endovascular repair History of carotid stenosis with previous endarterectomy Hypertension Hyperlipidemia PLAN: Obtain 2-D echo to assess cardiac structure and function Resume home cardiac medications Continue therapeutic dose of Lovenox Case management consulted to verify coverage for anticoagulation Further recommendations pending patient course Nurse practitioner note has been reviewed by physician. Signing provider agrees with the documented findings, assessment, and plan of care. Past Medical History Past Medical History: Cancer, Hyperlipidemia, Hypertension, Myocardial Infarction ([place]), Prostate Disorder, Thyroid Disorder Additional Past Medical History / Comment(s): "micro-cancer thyroid". aneurysm Last Myocardial Infarction Date:: 2007 History of Any Multi-Drug Resistant Organisms: None Reported Past Surgical History: Coronary Bypass/CABG Additional Past Surgical History / Comment(s): throidectomy, triple bypass,parathyroid removed Past Anesthesia/Blood Transfusion Reactions: No Reported Reaction Past Psychological History: No Psychological Hx Reported Past Alcohol Use History: None Reported Additional Past Alcohol Use History / Comment(s): smoker for 20 years 1ppd quit 2007 Past Drug Use History: None Reported - Past Family History Brother(s) Additional Family Medical History / Comment(s): 2 brothers aneurysm-1 Medications and Allergies Home Medications Medication Instructions Recorded Confirmed Type Aspirin [Adult Low Dose Aspirin EC] 81 mg PO DAILY 12/14/18 09/04/20 History Atorvastatin [Lipitor] 40 mg PO HS 12/14/18 09/04/20 History Carvedilol [Coreg] 25 mg PO BID 12/14/18 09/04/20 History Fish Oil/Dha/Epa [Fish Oil 1,200 1 cap PO HS 12/14/18 09/04/20 History mg Fish Oil] Levothyroxine Sodium [Synthroid] 150 mcg PO DAILY 12/14/18 09/04/20 History Losartan Potassium [Cozaar] 100 mg PO HS 12/14/18 09/04/20 History Multivitamins, Thera [Multivitamin 1 tab PO DAILY 12/14/18 09/04/20 History (formulary)] Tamsulosin [Flomax] 0.4 mg PO DAILY 12/14/18 09/04/20 History Vit C/E/Zn/Coppr/Lutein/Zeaxan 1 cap PO BID 12/14/18 09/04/20 History [Preservision Areds 2 Softgel] Apixaban [Eliquis] 5 mg PO BID #60 tab 09/04/20 Rx Allergies Allergy/AdvReac Type Severity Reaction Status Date / Time No Known Allergies Allergy Verified 09/04/20 06:55 Physical Exam Vitals: Vital Signs Pulse Pulse Resp BP BP Pulse Ox 09/04/20 08:00 55 L 18 116/85 96 09/04/20 06:10 92 16 92/61 99 09/04/20 05:10 87 16 98/66 95 09/04/20 04:52 18 96 09/04/20 04:10 92 16 95/66 97 09/04/20 03:10 120 H 16 121/78 98 09/04/20 02:10 111 H 16 120/97 98 Intake and Output 09/03/20 09/04/20 09/04/20 22:59 06:59 14:59 Other: Voiding Method Toilet Weight 102.058 kg Results 09/04/20 02:35 09/04/20 02:35 Cardiac Enzymes 09/04/20 09/04/20 09/04/20 Range/Units 02:35 02:35 08:54 AST 24 (17-59) U/L Troponin I <0.012 <0.012 (0.000-0.034) ng/mL Coagulation 09/04/20 Range/Units 02:35 PT 10.0 (9.0-12.0) sec APTT 24.6 (22.0-30.0) sec CBC 09/04/20 Range/Units 02:35 WBC 12.5 H (3.8-10.6) k/uL RBC 4.45 (4.30-5.90) m/uL Hgb 15.0 (13.0-17.5) gm/dL Hct 46.4 (39.0-53.0) % Plt Count 173 (150-450) k/uL Comprehensive Metabolic Panel 09/04/20 Range/Units 02:35 Sodium 140 (137-145) mmol/L Potassium 3.8 (3.5-5.1) mmol/L Chloride 108 H (98-107) mmol/L Carbon Dioxide 26 (22-30) mmol/L BUN 21 H (9-20) mg/dL Creatinine 0.96 (0.66-1.25) mg/dL Glucose 110 H (74-99) mg/dL Calcium 9.4 (8.4-10.2) mg/dL AST 24 (17-59) U/L ALT 17 (4-49) U/L Alkaline Phosphatase 81 (38-126) U/L Total Protein 5.9 L (6.3-8.2) g/dL Albumin 3.7 (3.5-5.0) g/dL Current Medications Generic Name Dose Route Start Last Admin Trade Name Freq PRN Reason Stop Dose Admin Aspirin 81 mg 09/04/20 09:00 09/04/20 10:01 Aspirin 81 Mg PO 81 mg DAILY CARLEE Administration Atorvastatin Calcium 40 mg 09/04/20 21:00 Atorvastatin 40 Mg Tab PO HS CARLEE Carvedilol 25 mg 09/04/20 09:00 Carvedilol 12.5 Mg Tab PO BID CARLEE Enoxaparin Sodium 100 mg 09/04/20 15:00 Enoxaparin 100 Mg/Ml Syringe SQ Q12H CARLEE Sodium Chloride 1,000 mls @ 20 mls/hr 09/04/20 04:45 Saline 0.9% IV .Q24H CARLEE Levothyroxine Sodium 150 mcg 09/04/20 06:30 09/04/20 06:41 Levothyroxine 75 Mcg Tab PO 150 mcg DAILY@0630 CARLEE Administration Losartan Potassium 100 mg 09/04/20 21:00 Losartan 50 Mg Tab PO HS [facility] Multivitamins/Minerals 1 each 09/04/20 09:00 09/04/20 10:01 Vit A,C & R-Ewoahq-Ydiaynof 1 Each Tab PO 1 each BID CARLEE Administration Nitroglycerin 0.4 mg 09/04/20 04:33 Nitroglycerin Sl Tabs 0.4 Mg Tab SUBLINGUAL Q5M PRN Chest Pain Tamsulosin HCl 0.4 mg 09/04/20 09:00 09/04/20 10:01 Tamsulosin 0.4 Mg Cap.Er.24h PO 0.4 mg DAILY CARLEE Administration Intake and Output 09/03/20 09/04/20 09/04/20 22:59 06:59 14:59 Other: Voiding Method Toilet Weight 102.058 kg 09/04/20 02:35 09/04/20 02:35
--- NOTE | 2020-09-04 13:17 | P.HPIM ---
History of Present Illness Patient is a pleasant 68-year-old male with a history of coronary artery bypass grafting in 2007 and atrial fibrillation post CABG proximal A. fib and never had similar episodes came in with complaints of soreness in the throat that he woke up because of burning sensation in the throat. And then patient will check his vitals patient is found to have elevated was because of which patient came to ER and found to have atrial fibrillation. Patient was given a dose of Cardizem and was started on Cardizem drip after which patient converted to sinus rhythm. Patient is not on any anticoagulation patient does take aspirin at home. Patient heart rate is currently in 50s patient takes Coreg to 25 mg twice a day at home patient blood pressure is bit low at this time probably because the Cardizem drip E was on patient is also on 100 mg of losartan dose of which will be decreased patient had EF of around 50% on the echo cardiac and that was done in May 2017 %. Patient chest x-ray showed some fibrotic changes without any pulmonary edema patient did undergo nuclear stress test which showed fixed moderate-sized defect in the inferior wall no other inducible ischemia essentially the stress test was negative. Patient was evaluated by cardiology. Patient is clinically doing well and will be discharged today patient denied any fever chills patient doesn't have any signs or symptoms of sepsis patient doesn't appear to be dehydrated. REVIEW OF SYSTEMS: CONSTITUTIONAL: No fever, no malaise, no fatigue. HEENT: No recent visual problems or hearing problems. Denied any sore throat. CARDIOVASCULAR: no syncope. PULMONARY: No shortness of breath, no cough, no hemoptysis. GASTROINTESTINAL: No diarrhea, no nausea, no vomiting, no abdominal pain. NEUROLOGICAL: No headaches, no weakness, no numbness. HEMATOLOGICAL: Denies any bleeding or petechiae. GENITOURINARY: Denies any burning micturition, frequency, or urgency. MUSCULOSKELETAL/RHEUMATOLOGICAL: Denies any joint pain, swelling, or any muscle pain. ENDOCRINE: Denies any polyuria or polydipsia. The rest of the 14-point review of systems is negative. PHYSICAL EXAMINATION: GENERAL: The patient is alert and oriented x3, not in any acute distress. Well developed, well nourished. HEENT: Pupils are round and equally reacting to light. EOMI. No scleral icterus. No conjunctival pallor. Normocephalic, atraumatic. No pharyngeal erythema. No thyromegaly. CARDIOVASCULAR: S1 and S2 present. No murmurs, rubs, or gallops. PULMONARY: Chest is clear to auscultation, no wheezing or crackles. ABDOMEN: Soft, nontender, nondistended, normoactive bowel sounds. No palpable organomegaly. MUSCULOSKELETAL: No joint swelling or deformity. EXTREMITIES: No cyanosis, clubbing, or pedal edema. NEUROLOGICAL: Gross neurological examination did not reveal any focal deficits. SKIN: No rashes. Assessment and plan -Atrial fibrillation with rapid ventricular rate patient appears to have proximal A. fib patient is presently sinus rhythm will be discharged today and patient was started on Eliquis -Ruled out acute coronary syndromes -Possibility of gastroesophageal reflux disease may explain his symptoms of burning and soreness of the throat at nighttime patient will be given empiric Pepcid twice a day for 2 weeks. -Coronary artery disease and CABG in the past next and-hyperlipidemia -Hypertension next and heparin hypothyroidism -Benign prostatic hypertrophy -She of carotid stenosis with previous endarterectomy in the past -History of infrarenal abdominal aortic aneurysm with endovascular repair Past Medical History Past Medical History: Cancer, Hyperlipidemia, Hypertension, Myocardial Infarction ([place]), Prostate Disorder, Thyroid Disorder Additional Past Medical History / Comment(s): "micro-cancer thyroid". aneurysm Last Myocardial Infarction Date:: 2007 History of Any Multi-Drug Resistant Organisms: None Reported Past Surgical History: Coronary Bypass/CABG Additional Past Surgical History / Comment(s): throidectomy, triple bypass,parathyroid removed Past Anesthesia/Blood Transfusion Reactions: No Reported Reaction Past Psychological History: No Psychological Hx Reported Past Alcohol Use History: None Reported Additional Past Alcohol Use History / Comment(s): smoker for 20 years 1ppd quit 2007 Past Drug Use History: None Reported - Past Family History Brother(s) Additional Family Medical History / Comment(s): 2 brothers aneurysm-1 Medications and Allergies Home Medications Medication Instructions Recorded Confirmed Type Aspirin [Adult Low Dose Aspirin EC] 81 mg PO DAILY 12/14/18 09/04/20 History Atorvastatin [Lipitor] 40 mg PO HS 12/14/18 09/04/20 History Carvedilol [Coreg] 25 mg PO BID 12/14/18 09/04/20 History Fish Oil/Dha/Epa [Fish Oil 1,200 1 cap PO HS 12/14/18 09/04/20 History mg Fish Oil] Levothyroxine Sodium [Synthroid] 150 mcg PO DAILY 12/14/18 09/04/20 History Multivitamins, Thera [Multivitamin 1 tab PO DAILY 12/14/18 09/04/20 History (formulary)] Tamsulosin [Flomax] 0.4 mg PO DAILY 12/14/18 09/04/20 History Vit C/E/Zn/Coppr/Lutein/Zeaxan 1 cap PO BID 12/14/18 09/04/20 History [Preservision Areds 2 Softgel] Apixaban [Eliquis] 5 mg PO BID #60 tab 09/04/20 Rx Famotidine [Pepcid] 20 mg PO BID #30 tablet 09/04/20 Rx Losartan Potassium [Cozaar] 50 mg PO HS #0 09/04/20 09/04/20 Rx Allergies Allergy/AdvReac Type Severity Reaction Status Date / Time No Known Allergies Allergy Verified 09/04/20 06:55 Physical Exam Vitals: Vital Signs Pulse Pulse Resp BP BP Pulse Ox 09/04/20 08:00 55 L 18 116/85 96 09/04/20 06:10 92 16 92/61 99 09/04/20 05:10 87 16 98/66 95 09/04/20 04:52 18 96 09/04/20 04:10 92 16 95/66 97 09/04/20 03:10 120 H 16 121/78 98 09/04/20 02:10 111 H 16 120/97 98 Intake and Output 09/03/20 09/04/20 09/04/20 22:59 06:59 14:59 Other: Voiding Method Toilet Weight 102.058 kg Results CBC & Chem 7: 09/04/20 02:35 09/04/20 02:35 Labs: Abnormal Lab Results - Last 24 Hours (Table) 09/04/20 09/04/20 Range/Units 02:35 02:35 WBC 12.5 H (3.8-10.6) k/uL MCV 104.3 H (80.0-100.0) fL Neutrophils # 7.8 H (1.3-7.7) k/uL Chloride 108 H (98-107) mmol/L BUN 21 H (9-20) mg/dL Glucose 110 H (74-99) mg/dL Total Protein 5.9 L (6.3-8.2) g/dL Thrombosis Risk Factor Assmnt - Choose All That Apply Each Risk Factor Represents 2 Points: Age 61-74 years Each Risk Factor Represents 3 Points: Family history of DVT/PE Thrombosis Risk Factor Assessment Total Risk Factor Score: 5 Thrombosis Risk Factor Assessment Level: High Risk
[2020-09-04 13:42] VITALS: PULSE 65
[2020-09-04] MEDS ORDERED: APIXABAN 5 MG TAB PO SCH (21:00)
[2020-09-04] MEDS ORDERED: ATORVASTATIN 40 MG TAB PO SCH (21:00)
[2020-09-04] MEDS ORDERED: LOSARTAN 50 MG TAB PO SCH (21:00)
[2020-09-05] MEDS ORDERED: ASPIRIN 325 MG TAB PO SCH (09:00)
--- NOTE | 2020-09-06 12:52 | ECHOF ---
Referral Reason:LV function, new afib MEASUREMENTS -------- HEIGHT: 170.2 cm WEIGHT: 102.1 kg BP: RVIDd: 4.2 cm (< 3.3) IVSd: 1.6 cm (0.6 - 1.1) LVIDd: 5.7 cm (3.9 - 5.3) LVPWd: 1.2 cm (0.6 - 1.1) IVSs: 2.1 cm LVIDs: 4.4 cm LVPWs: 1.4 cm LAESV Index (A-L): 38.81 ml/m Ao Diam: 3.2 cm (2.0 - 3.7) AV Cusp: 2.1 cm (1.5 - 2.6) LA Diam: 5.2 cm (2.7 - 3.8) MV EXCURSION: 14.425 mm (> 18.000) MV EF SLOPE: 52 mm/s (70 - 150) EPSS: 1.4 cm MV E Magno: 0.85 m/s MV DecT: 320 ms MV A Magno: 0.78 m/s MV E/A Ratio: 1.09 RAP: 5.00 mmHg RVSP: 28.10 mmHg FINDINGS -------- This was a technically difficult study with suboptimal views. The left ventricular size is normal. There is mild concentric left ventricular hypertrophy. Overa ll left ventricular systolic function is mild-moderately impaired with, an EF between 40 - 45 %. In creased LAP Grade 2 Diastolic Dysfunction. Basal inferior LV wall motion is hypokinetic. Basal i nferoseptal LV wall motion is hypokinetic. The right ventricle is severely enlarged. LA is moderately dilated 34-39 ml/m2 The right atrial size is normal. Lumason used The aortic valve is trileaflet and appears structurally normal. The mitral valve is normal. Mild mitral regurgitation is present. The tricuspid valve appears structurally normal. Mild tricuspid regurgitation present. Right vent ricular systolic pressure is normal at < 35 mmHg. There is no pulmonic regurgitation present. The aortic root size is normal. IVC Not well visulized. There is no pericardial effusion. CONCLUSIONS -------- 1. The left ventricular size is normal. 2. There is mild concentric left ventricular hypertrophy. 3. Overall left ventricular systolic function is mild-moderately impaired with, an EF between 40 - 45 %. 4. Increased LAP Grade 2 Diastolic Dysfunction. 5. Basal inferior LV wall motion is hypokinetic. 6. Basal inferoseptal LV wall motion is hypokinetic. 7. The right ventricle is severely enlarged. 8. LA is moderately dilated 34-39 ml/m2 9. Mild mitral regurgitation is present. 10. Mild tricuspid regurgitation present. 11. There is no pericardial effusion. GLUE CLAMP OPERATOR: Brandy Brunson RDCS
== END 2020-09-04 15:36 | disposition home or self-care (01) | DRG 310 ==
LOC: EC 02:04 → 3SCARD 04:34
PROVIDERS: ADMIT Hospitalist; ATTEND Hospitalist
DX: I48.0 Paroxysmal atrial fibrillation (principal); Z79.01 Long term (current) use of anticoagulants; E78.5 Hyperlipidemia, unspecified; I10 Essential (primary) hypertension; I25.10 Atherosclerotic heart disease of native coronary artery without angina pectoris; I25.2 Old myocardial infarction; N40.0 Benign prostatic hyperplasia without lower urinary tract symptoms; E89.0 Postprocedural hypothyroidism; E89.2 Postprocedural hypoparathyroidism; I07.1 Rheumatic tricuspid insufficiency; R45.1 Restlessness and agitation; Z98.890 Other specified postprocedural states; I49.3 Ventricular premature depolarization; Z79.82 Long term (current) use of aspirin; Z79.890 Hormone replacement therapy; Z79.899 Other long term (current) drug therapy; Z87.891 Personal history of nicotine dependence; Z95.1 Presence of aortocoronary bypass graft; Z86.79 Personal history of other diseases of the circulatory system
CPT/HCPCS: 36415; 71045; 80053; 83735; 84443; 84484; 85025; 85610; 85730; 93005; 93306; 96372; 96374; 99285

== ENCOUNTER → 2020-10-22 | Outpatient (CLI) | payer MEDICARE, OTHER ==
[2020-10-23 01:14] LABS: African American GFR (CKD) 77.3 (60.0-200.0); Albumin 4.3 g/dL (3.80-4.90); Albumin/Globulin Ratio 2.69 (1.60-3.17); Anion Gap 9.8 mmol/L (4.00-12.00); BUN/Creat Ratio 12.73 Ratio (12.00-20.00); Calcium 9.7 mg/dL (8.7-10.3); Carbon Dioxide 25.2 mmol/L (21.6-31.8); Globulin 1.6 g/dL (1.6-3.3); Non-African American GFR(CKD) 66.7 (60.0-200.0); Potassium 4.6 mmol/L (3.5-5.5); Total Bilirubin 0.6 mg/dL (0.3-1.2); Total Protein 5.9 g/dL (6.2-8.2)
[2020-10-23 01:21] LABS: T4, Free (Free Thyroxine) 1.7 ng/dL (0.80-1.80)
== END | disposition home or self-care (01) ==
LOC: LABWHC1 10:40
PROVIDERS: ATTEND Internal Medicine
DX: C73 Malignant neoplasm of thyroid gland (principal); E83.52 Hypercalcemia
CPT/HCPCS: 36415; 80053; 84439; 84443; 84481

== ENCOUNTER → 2021-03-29 | Outpatient (CLI) | payer MEDICARE, OTHER ==
[2021-03-30 01:01] LABS: ALT 18 U/L (10-49); AST 16 U/L (14-35); African American GFR (CKD) 82.7 (60.0-200.0); Albumin 3.9 g/dL (3.8-4.9); Albumin/Globulin Ratio 1.88 (1.60-3.17); Alkaline Phosphatase 80 U/L (41-126); BUN/Creat Ratio 14.42 Ratio (12.00-20.00); Calcium 9.3 mg/dL (8.7-10.3); Carbon Dioxide 24.1 mmol/L (20.0-27.5); Chloride 106 mmol/L (96-109); Globulin 2.1 g/dL (1.6-3.3); Glucose 98 mg/dL (70-110); Non-African American GFR(CKD) 71.4 (60.0-200.0); Potassium 4.6 mmol/L (3.5-5.5); Sodium 142 mmol/L (135-145); Total Bilirubin <0.20 mg/dL (0.30-1.20)
== END | disposition home or self-care (01) ==
LOC: LABWHC1 14:52
PROVIDERS: ATTEND Physician Assistant
DX: I10 Essential (primary) hypertension (principal); C73 Malignant neoplasm of thyroid gland
CPT/HCPCS: 36415; 80053; 84432; 84439; 84443; 84481

== ENCOUNTER → 2021-10-01 | Outpatient (CLI) | payer MEDICARE, OTHER ==
[2021-10-01 18:46] LABS: Albumin 4.1 g/dL (3.8-4.9); Albumin/Globulin Ratio 1.89 (1.60-3.17); Anion Gap 10.4 mmol/L (10.00-18.00); BUN/Creat Ratio 11.72 Ratio (12.00-20.00); Blood Urea Nitrogen 13.6 mg/dL (9.0-27.0); Calcium 9.6 mg/dL (8.7-10.3); Carbon Dioxide 25.2 mmol/L (20.0-27.5); Globulin 2.2 g/dL (1.6-3.3); Non-African American GFR(CKD) 62.1 (60.0-200.0); Potassium 4.5 mmol/L (3.5-5.5); T4, Free (Free Thyroxine) 1.43 ng/dL (0.800-1.800); Total Bilirubin 0.3 mg/dL (0.30-1.20); Total Protein 6.2 g/dL (6.2-8.2)
== END | disposition home or self-care (01) ==
LOC: LABWHC1 13:07
PROVIDERS: ATTEND Physician Assistant
DX: C73 Malignant neoplasm of thyroid gland (principal); E83.52 Hypercalcemia
CPT/HCPCS: 36415; 80053; 84432; 84439; 84443; 84481

== ENCOUNTER → 2021-10-27 | Outpatient (CLI) | payer MEDICARE, OTHER ==
--- NOTE | 2021-10-29 21:18 | CT ---
EXAMINATION TYPE: CT angio thor/abd pel aorta CT DLP: mGycm, Automated exposure control for dose reduction was used. DATE OF EXAM: 10/27/2021 3:50 PM COMPARISON: THIS EXAM WAS READ DURING PACS DOWNTIME, NO PRIORS AVAILABLE. CLINICAL INDICATION:Male, 71 years old with history of Z86.79, I71.4, I25.10, I10; TECHNIQUE: Dissection protocol: Multiple axial CT images of the chest, abdomen, and pelvis were obtai danay prior and to the administration of IV contrast. 3-D reformats and maximum intensity projection fo rmat were performed on a separate workstation. Contrast used: 100 cc of [id number]. Oral contrast used: None FINDINGS: ARTERIAL VASCULATURE: Thoracic abdominal aorta is within normal limits for size. The scattered athero sclerosis of the arterial vasculature. The garzon-white vessels are patent. The visualized aorta demons trates stent graft within the suprarenal abdominal aorta.. The origins of the celiac axis, superior m esenteric artery, bilateral renal arteries are patent. There is mild narrowing of the right renal art syed at its origin secondary to noncalcified atherosclerosis. Bilateral iliac artery stent grafts are also patent. There is stenosis at the distal portion of the left common iliac artery stent graft with at least 50% stenosis. (Series 8 image 229) the left internal iliac artery and the left demonstrates mural thrombus with partial occlusion near its origin. It infrarenal aortic aneurysm excluded lumen demonstrates thrombus and measures up to 4.5 x 4.3 cm. PULMONARY ARTERIAL VASCULATURE: Normal caliber. No evidence of filling defect to suggest pulmonary em bolus. VENOUS SYSTEM: Unremarkable. Lungs/pleura: Right middle lobe 6 mm pulmonary nodule. Heart: The heart is mildly enlarged for size. There is moderate to severe coronary artery atheroscler osis changes with coronary artery bypass grafting. Minimal Lipomatous hypertrophy of interatrial sept um. Mediastinum: No gross evidence of adenopathy. Lower Neck: No significant findings. Abdomen: Liver: Unremarkable. Gallbladder and Bile ducts: Unremarkable. Pancreas: Unremarkable. Spleen: Unremarkable. Adrenal glands: Bilateral adrenal adenoma measuring 1.0 cm on the left and 2.0 cm on the right. Addit ional nodular changes to the left adrenal gland likely representing adenomatous hypertrophy changes. Kidneys and Ureters: Unremarkable. No hydronephrosis. Stomach and Bowel: Unremarkable. No evidence of bowel obstruction. Peritoneum: No evidence of pneumoperitoneum, free fluid, or adenopathy. Bladder: There is a left-sided bladder diverticulum measuring up to 4.3 x 2.4 cm. Reproductive: Prostate gland is enlarged measuring up to 5.6 cm in transverse dimension. Abdominal wall/soft tissues: Fatty changes to the inguinal canals bilaterally right greater than left Musculoskeletal: The osseous structures appear intact. Sternotomy wires are present. There is an area of sclerosis within the sacrum measuring up to 9 mm along with subcentimeter areas in the left femor al head and neck which likely represent bone islands in the absence of history of malignancy. IMPRESSION: 1. No evidence for thoracic aortic dissection. 2. Aortic suprarenal stent graft which is patent. Bilateral common iliac artery stent grafts which a re also patent. There is mild narrowing of the left common iliac artery stent graft just past the dis alana margin as it extends into the left external iliac artery of at least 50%.. 3. Moderate left bladder diverticulum. 4. Prostatomegaly. Correlate with serum PSA. 5. Bilateral fat filled inguinal hernias right greater than left. 6. Right middle lobe 6 mm pulmonary nodule. 7. Coronary artery bypass grafting with moderate to severe coronary atherosclerosis.
== END | disposition home or self-care (01) ==
LOC: RADCTMAIN 13:35
PROVIDERS: ATTEND Internal Medicine Interventional Cardiology
DX: I25.10 Atherosclerotic heart disease of native coronary artery without angina pectoris (principal); N32.3 Diverticulum of bladder; K40.90 Unilateral inguinal hernia, without obstruction or gangrene, not specified as recurrent; N40.0 Benign prostatic hyperplasia without lower urinary tract symptoms; I10 Essential (primary) hypertension; R91.1 Solitary pulmonary nodule; Z95.1 Presence of aortocoronary bypass graft
CPT/HCPCS: 82565; 84520; 71275; 36415; 74174; Q9967

== ENCOUNTER → 2022-12-29 | Outpatient (CLI) | payer MEDICARE, OTHER ==
[2022-12-29 21:39] LABS: ALT 17 U/L (10-49); AST 22 U/L (14-35); Albumin/Globulin Ratio 2.22 Ratio (1.60-3.17); Alkaline Phosphatase 84 U/L (41-126); BUN/Creat Ratio 11.64 Ratio (12.00-20.00); Blood Urea Nitrogen 12.8 mg/dL (9.0-27.0); Calcium 9.8 mg/dL (8.7-10.3); Chloride 106 mmol/L (96-109); Globulin 1.8 g/dL (1.6-3.3); Glucose 87 mg/dL (70-110); Potassium 5.1 mmol/L (3.5-5.5); Sodium 141 mmol/L (135-145); T4, Free (Free Thyroxine) 1.72 ng/dL (0.80-1.80); Total Bilirubin 0.3 mg/dL (0.3-1.2); Total Protein 5.8 g/dL (6.2-8.2)
== END | disposition home or self-care (01) ==
LOC: LABWHC1 11:26
PROVIDERS: ATTEND Internal Medicine
DX: C73 Malignant neoplasm of thyroid gland (principal); E83.52 Hypercalcemia
CPT/HCPCS: 36415; 80053; 84432; 84439; 84443; 84481

== ENCOUNTER → 2023-06-29 | Outpatient (CLI) | payer MEDICARE, OTHER ==
[2023-06-30 02:11] LABS: T4, Free (Free Thyroxine) 1.54 ng/dL (0.80-1.80)
[2023-06-30 02:12] LABS: ALT 22 U/L (10-49); AST 29 U/L (14-35); Albumin 4.2 g/dL (3.8-4.9); Albumin/Globulin Ratio 2.21 Ratio (1.60-3.17); Alkaline Phosphatase 84 U/L (41-126); BUN/Creat Ratio 11.67 Ratio (12.00-20.00); Calcium 9.8 mg/dL (8.7-10.3); Carbon Dioxide 24.6 mmol/L (21.6-31.8); Chloride 104 mmol/L (96-109); Globulin 1.9 g/dL (1.6-3.3); Glucose 119 mg/dL (70-110); Sodium 140 mmol/L (135-145); Total Bilirubin 0.4 mg/dL (0.3-1.2); Total Protein 6.1 g/dL (6.2-8.2)
== END | disposition home or self-care (01) ==
LOC: LABWHC1 15:59
PROVIDERS: ATTEND Internal Medicine
DX: C73 Malignant neoplasm of thyroid gland (principal); E83.52 Hypercalcemia
CPT/HCPCS: 36415; 80053; 84432; 84439; 84443; 84481

== ENCOUNTER → 2024-03-14 | Outpatient (CLI) | payer MEDICARE ==
[2024-03-14 19:31] LABS: ALT 21 U/L (10-49); AST 19 U/L (14-35); Albumin 4.1 g/dL (3.8-4.9); Albumin/Globulin Ratio 2.05 Ratio (1.60-3.17); Alkaline Phosphatase 93 U/L (41-126); BUN/Creat Ratio 17.55 Ratio (12.00-20.00); Blood Urea Nitrogen 19.3 mg/dL (9.0-27.0); Calcium 9.7 mg/dL (8.7-10.3); Carbon Dioxide 26.1 mmol/L (21.6-31.8); Chloride 107 mmol/L (96-109); Glucose 98 mg/dL (70-110); Sodium 143 mmol/L (135-145); T4, Free (Free Thyroxine) 1.41 ng/dL (0.80-1.80); Total Bilirubin 0.3 mg/dL (0.3-1.2); Total Protein 6.1 g/dL (6.2-8.2)
== END | disposition home or self-care (01) ==
LOC: LABPAT 14:10
PROVIDERS: ATTEND Internal Medicine
DX: Z01.812 Encounter for preprocedural laboratory examination (principal); C73 Malignant neoplasm of thyroid gland; E83.52 Hypercalcemia
CPT/HCPCS: 80053; 84439; 84443; 84481

== ENCOUNTER 2024-04-21 11:49 | Inpatient (IN) | payer MEDICARE ==
--- NOTE | 2024-04-21 12:15 | ED ---
General Adult HPI - General Chief complaint: Shortness of Breath Stated complaint: SOB Time Seen by Provider: 04/21/24 12:01 Source: patient, EMS, RN notes reviewed Mode of arrival: EMS Limitations: no limitations - History of Present Illness Initial comments: 73-year-old male with past medical history of A-fib, CAD presents to the emergency department for evaluation of shortness of breath. Patient states that this has been an ongoing issue for quite a while but has significantly gotten worse since he has been diagnosed with the flu on . He states that he got out of the shower and his granddaughter checked his oxygen as he was having difficulty breathing and states that it is in the 80s. He has been on Tamiflu along with prednisone and every 4 hour breathing treatments without any relief. He admits to fever at home. Denies chest pain. Denies lower extremity edema. Denies any history of heart failure. - Related Data Home Medications Medication Instructions Recorded Confirmed Aspirin [Adult Low Dose Aspirin EC] 81 mg PO HS 12/14/18 04/21/24 Fish Oil/Dha/Epa [Fish Oil 1,200 1 cap PO HS 12/14/18 04/21/24 mg Fish Oil] Multivitamins, Thera [Multivitamin 1 tab PO HS 12/14/18 04/21/24 (formulary)] Tamsulosin [Flomax] 0.4 mg PO DAILY 12/14/18 04/21/24 Vit C/E/Zn/Coppr/Lutein/Zeaxan 1 cap PO BID 12/14/18 04/21/24 [Preservision Areds 2 Softgel] carvediloL [Coreg] 12.5 mg PO BID 12/14/18 04/21/24 Albuterol Nebulized [Ventolin 2.5 mg INHALATION RT-Q4H 04/21/24 04/21/24 Nebulized] Atorvastatin [Lipitor] 80 mg PO HS 04/21/24 04/21/24 Latanoprost [Latanoprost 0.005%] 1 drop BOTH EYES HS 04/21/24 04/21/24 Levothyroxine Sodium [Synthroid] 137 mcg PO DAILY 04/21/24 04/21/24 Losartan Potassium [Cozaar] 100 mg PO HS 04/21/24 04/21/24 Oseltamivir [Tamiflu] 75 mg PO BID 04/21/24 04/21/24 predniSONE [Deltasone] 20 mg PO DAILY 04/21/24 04/21/24 Previous Rx's Medication Instructions Recorded Apixaban [Eliquis] 5 mg PO BID #60 tab 09/04/20 Famotidine [Pepcid] 20 mg PO BID #30 tablet 09/04/20 Allergies Allergy/AdvReac Type Severity Reaction Status Date / Time No Known Allergies Allergy Verified 04/21/24 16:34 Review of Systems ROS Statement: Those systems with pertinent positive or pertinent negative responses have been documented in the HPI. ROS Other: All systems not noted in ROS Statement are negative. Past Medical History Past Medical History: Cancer, Hyperlipidemia, Hypertension, Myocardial Infarction ([place]), Prostate Disorder, Thyroid Disorder Additional Past Medical History / Comment(s): "micro-cancer thyroid". aneurysm Last Myocardial Infarction Date:: 2007 History of Any Multi-Drug Resistant Organisms: None Reported Past Surgical History: Coronary Bypass/CABG Additional Past Surgical History / Comment(s): throidectomy, triple bypass,parathyroid removed Past Anesthesia/Blood Transfusion Reactions: No Reported Reaction Past Psychological History: No Psychological Hx Reported Past Alcohol Use History: None Reported Past Drug Use History: None Reported - Past Family History Brother(s) Additional Family Medical History / Comment(s): 2 brothers aneurysm-1 General Exam Limitations: no limitations General appearance: alert, in no apparent distress Head exam: Present: atraumatic, normocephalic, normal inspection ENT exam: Present: normal exam, mucous membranes moist Respiratory exam: Present: rales. Absent: respiratory distress, wheezes, rhonchi, stridor Cardiovascular Exam: Present: tachycardia, irregular rhythm, normal heart sounds. Absent: systolic murmur, diastolic murmur, rubs, gallop, clicks Extremities exam: Present: normal inspection, full ROM, normal capillary refill. Absent: tenderness, pedal edema, joint swelling, calf tenderness Neurological exam: Present: alert, oriented X3 Psychiatric exam: Present: normal affect, normal mood Skin exam: Present: warm, dry, intact, normal color. Absent: rash Course Vital Signs 04/21/24 04/21/24 04/21/24 11:50 11:53 13:46 Temperature 98.1 F Pulse Rate 82 112 H Respiratory 20 20 20 Rate Blood Pressure 139/91 125/75 O2 Sat by Pulse 92 L 94 L Oximetry 04/21/24 04/21/24 04/21/24 16:20 16:56 18:33 Temperature 98.1 F 98.7 F Pulse Rate 140 H 118 H 112 H Respiratory 18 18 20 Rate Blood Pressure 131/75 131/75 110/85 O2 Sat by Pulse 94 L 95 97 Oximetry 04/21/24 04/21/24 04/21/24 20:31 20:38 22:35 Temperature Pulse Rate 112 H 112 H 112 H Respiratory 18 Rate Blood Pressure 103/82 O2 Sat by Pulse 94 L Oximetry Medical Decision Making - Medical Decision Making Was pt. sent in by a medical professional or institution (, PA, SUPERVISOR [employer]TING, urgent care, hospital, or halfway...) When possible be specific @ -No Did you speak to anyone other than the patient for history (EMS, parent, family, police, friend...)? What history was obtained from this source @ -No Did you review nursing and triage notes (agree or disagree)? Why? @ -I reviewed and agree with nursing and triage notes Were old charts reviewed (outside hosp., previous admission, EMS record, old EKG, old radiological studies, urgent care reports/EKG's, halfway records)? Report findings @ -No old charts were reviewed Differential Diagnosis (chest pain, altered mental status, abdominal pain women, abdominal pain men, vaginal bleeding, weakness, fever, dyspnea, syncope, headache, dizziness, GI bleed, back pain, seizure, CVA, palpatations, mental health, musculoskeletal)? @ -Differential Dyspnea: Coronary syndrome, arrhythmia, tamponade, asthma, COPD, pulmonary embolism, pneumonia, pneumothorax, pulmonary effusion, anaphylaxis, diabetic ketoacidosis, flailed chest, pulmonary contusion, diaphragmatic rupture, anemia, neuromuscular, this is not meant to be an all-inclusive list. EKG interpreted by me (3pts min.). @ -EKG at 1200 shows A-fib with RVR rate 111, QRS 108, QT/QTc [id number] X-rays interpreted by me (1pt min.). @ -Chest x-ray interpreted by myself possible retrocardiac developing infiltrate CT interpreted by me (1pt min.). @ -None done U/S interpreted by me (1pt. min.). @ -None done What testing was considered but not performed or refused? (CT, X-rays, U/S, labs)? Why? @ -None What meds were considered but not given or refused? Why? @ -None Did you discuss the management of the patient with other professionals (professionals i.e. , PA, SUPERVISOR [employer], lab, RT, psych nurse, social work instructor, associate professor of communication, teacher, security vehicle patrol officer, manager rn case)? Give summary @ -Management discussed with Anahi Pelayo with [facility] who is accepting of the admission Was smoking cessation discussed for >3mins.? @ -No Was critical care preformed (if so, how long)? @ -No Were there social determinants of health that impacted care today? How? (Homelessness, low income, unemployed, alcoholism, drug addiction, transportation, low edu. Level, literacy, decrease access to med. care, residential, rehab)? @ -No Was there de-escalation of care discussed even if they declined (Discuss DNR or withdrawal of care, Hospice)? DNR status @ -No What co-morbidities impacted this encounter? (DM, HTN, Smoking, COPD, CAD, Cancer, CVA, ARF, Chemo, Hep., AIDS, mental health diagnosis, sleep apnea, morbid obesity)? @ -None Was patient admitted / discharged? Hospital course, mention meds given and route, prescriptions, significant lab abnormalities, going to OR and other pertinent info. @ -Patient presented emergency department for evaluation of shortness of breath. Recently diagnosed with influenza A. Has been utilizing steroids, Tamiflu, breathing treatments. Notes that today while getting out of the shower he was significantly short of breath. He does feel somewhat better. L aboratory studies obtained. There is leukocytosis with a WBC of 18.3. Sodium 136, potassium 4.6; BNP elevated at 3370, troponin negative at 0.026. He did test positive for influenza A. Chest x-ray was obtained radiologist read no acute process my interpretation XR shows retrocardiac infiltrate. patient was given 40 mg of IV Lasix, Solu-Medrol and another breathing treatment in the ED. patient was also administered an extra dose of his carvedilol for rate control. Patient will be started on antibiotics and admitted to the hospital. He is understanding agreeable with this plan. Case discussed with Anahi Pelayo who is accepting of the admission. Case discussed with Dr. Topete Undiagnosed new problem with uncertain prognosis? @ -No Drug Therapy requiring intensive monitoring for toxicity (Heparin, Nitro, Insulin, Cardizem)? @ -No Were any procedures done? @ -No Diagnosis/symptom? @ -Influenza, pneumonia Acute, or Chronic, or Acute on Chronic? @ -acute Uncomplicated (without systemic symptoms) or Complicated (systemic symptoms)? @ -uncomplicated Side effects of treatment? @ -No Exacerbation, Progression, or Severe Exacerbation? @ -No Poses a threat to life or bodily function? How? (Chest pain, [place], [place], pneumonia, PE, COPD, DKA, ARF, appy, cholecystitis, CVA, Diverticulitis, Homicidal, Suicidal, threat to staff... and all critical care pts) @ -No - Lab Data Result diagrams: 04/21/24 12:31 04/21/24 12:31 Lab Results 04/21/24 04/21/24 04/21/24 Range/Units 12:31 12:31 12:31 WBC 18.3 H (3.8-10.6) k/uL RBC 4.56 (4.30-5.90) m/uL Hgb 15.5 (13.0-17.5) gm/dL Hct 48.7 (39.0-53.0) % MCV 106.6 H (80.0-100.0) fL MCH 33.9 (25.0-35.0) pg MCHC 31.8 (31.0-37.0) g/dL RDW 12.4 (11.5-15.5) % Plt Count 155 (150-450) k/uL MPV 10.6 Neutrophils % 90 % Lymphocytes % 5 % Monocytes % 4 % Eosinophils % 0 % Basophils % 0 % Neutrophils # 16.4 H (1.3-7.7) k/uL Lymphocytes # 0.9 L (1.0-4.8) k/uL Monocytes # 0.8 (0-1.0) k/uL Eosinophils # 0.0 (0-0.7) k/uL Basophils # 0.0 (0-0.2) k/uL Macrocytosis Moderate PT 12.9 H (10.0-12.5) sec INR 1.2 H (<1.2) APTT 27.2 (22.0-30.0) sec Sodium 136 L (137-145) mmol/L Potassium 4.6 (3.5-5.1) mmol/L Chloride 99 (98-107) mmol/L Carbon Dioxide 29 (22-30) mmol/L Anion Gap 8 mmol/L BUN 24 H (9-20) mg/dL Creatinine 0.84 (0.66-1.25) mg/dL Est GFR (CKD-EPI)AfAm >90 (>60 ml/min/1.73 sqM) Est GFR (CKD-EPI)NonAf 86 (>60 ml/min/1.73 sqM) Glucose 126 H (74-99) mg/dL Plasma Lactic Acid Sherman (0.7-2.0) mmol/L Calcium 9.0 (8.4-10.2) mg/dL Total Bilirubin 1.1 (0.2-1.3) mg/dL AST 49 (17-59) U/L ALT 43 (4-49) U/L Alkaline Phosphatase 81 (38-126) U/L Troponin I (0.000-0.034) ng/mL NT-Pro-B Natriuret Pep 3370 pg/mL Total Protein 6.2 L (6.3-8.2) g/dL Albumin 3.7 (3.5-5.0) g/dL Influenza Type A (PCR) (Not Detectd) Influenza Type B (PCR) (Not Detectd) RSV (PCR) (Not Detectd) SARS-CoV-2 (PCR) (Not Detectd) 04/21/24 04/21/24 04/21/24 Range/Units 12:31 12:31 12:31 WBC (3.8-10.6) k/uL RBC (4.30-5.90) m/uL Hgb (13.0-17.5) gm/dL Hct (39.0-53.0) % MCV (80.0-100.0) fL MCH (25.0-35.0) pg MCHC (31.0-37.0) g/dL RDW (11.5-15.5) % Plt Count (150-450) k/uL MPV Neutrophils % % Lymphocytes % % Monocytes % % Eosinophils % % Basophils % % Neutrophils # (1.3-7.7) k/uL Lymphocytes # (1.0-4.8) k/uL Monocytes # (0-1.0) k/uL Eosinophils # (0-0.7) k/uL Basophils # (0-0.2) k/uL Macrocytosis PT (10.0-12.5) sec INR (<1.2) APTT (22.0-30.0) sec Sodium (137-145) mmol/L Potassium (3.5-5.1) mmol/L Chloride (98-107) mmol/L Carbon Dioxide (22-30) mmol/L Anion Gap mmol/L BUN (9-20) mg/dL Creatinine (0.66-1.25) mg/dL Est GFR (CKD-EPI)AfAm (>60 ml/min/1.73 sqM) Est GFR (CKD-EPI)NonAf (>60 ml/min/1.73 sqM) Glucose (74-99) mg/dL Plasma Lactic Acid Sherman 1.3 (0.7-2.0) mmol/L Calcium (8.4-10.2) mg/dL Total Bilirubin (0.2-1.3) mg/dL AST (17-59) U/L ALT (4-49) U/L Alkaline Phosphatase (38-126) U/L Troponin I 0.026 (0.000-0.034) ng/mL NT-Pro-B Natriuret Pep pg/mL Total Protein (6.3-8.2) g/dL Albumin (3.5-5.0) g/dL Influenza Type A (PCR) Detected A (Not Detectd) Influenza Type B (PCR) Not Detected (Not Detectd) RSV (PCR) Not Detected (Not Detectd) SARS-CoV-2 (PCR) Not Detected (Not Detectd) Disposition Clinical Impression: Influenza A, Pneumonia Disposition: ADMITTED IP TO THIS HOSP Condition: Stable Is patient prescribed a controlled substance at d/c from ED?: No
--- NOTE | 2024-04-21 12:42 | XR ---
EXAMINATION TYPE: XR chest 2V DATE OF EXAM: 04/21/2024 12:36 PM COMPARISON: Chest radiographs from 09/04/2020 TECHNIQUE: XR chest 2V Frontal and lateral views of the chest. CLINICAL INDICATION:Male, 73 years old with history of difficulty breathing; FINDINGS: Lungs/Pleura: There is no evidence of pleural effusion, focal consolidation, or pneumothorax. Chroni c interstitial prominence. Pulmonary vascularity: Unremarkable. Heart/mediastinum: Cardiomediastinal silhouette is enlarged and stable. Post-CABG changes. Atheroscle rotic calcifications are seen in the aorta. Musculoskeletal: Multiple level degenerative disc disease changes seen throughout the spine. Midline sternotomy wires are noted and stable. IMPRESSION: Chronic changes without acute pulmonary process. [facility], , 04/21/2024 12:40 PM
[2024-04-21 12:43] LABS: Basophils % (A) 0 %; Eosinophils % (A) 0 %; HCT 48.7 % (39.0-53.0); HGB 15.5 gm/dL (13.0-17.5); Lymphocytes # (A) 0.9 k/uL (1.0-4.8); Lymphocytes % (A) 5 %; MCH 33.9 pg (25.0-35.0); MCHC 31.8 g/dL (31.0-37.0); MCV 106.6 fL (80.0-100.0); Macrocytosis Moderate; Mean Platelet Volume 10.6; Monocytes # (A) 0.8 k/uL (0-1.0); Monocytes % (A) 4 %; Neutrophils # (A) 16.4 k/uL (1.3-7.7); Neutrophils % (A) 90 %; Platelet Count 155 k/uL (150-450); RBC 4.56 m/uL (4.30-5.90); RDW 12.4 % (11.5-15.5); WBC 18.3 k/uL (3.8-10.6)
[2024-04-21 12:52] LABS: INR 1.2 (<1.2); Partial Thromboplastin Time 27.2 sec (22.0-30.0); Prothrombin Time 12.9 sec (10.0-12.5)
[2024-04-21 12:54] LABS: ALT 43 U/L (4-49); AST 49 U/L (17-59); African American GFR (CKD) >90 (>60 ml/min/1.73 sqM); Albumin 3.7 g/dL (3.5-5.0); Alkaline Phosphatase 81 U/L (38-126); Anion Gap 8 mmol/L; Blood Urea Nitrogen 24 mg/dL (9-20); Carbon Dioxide 29 mmol/L (22-30); Chloride 99 mmol/L (98-107); Glucose 126 mg/dL (74-99); Non-African American GFR(CKD) 86 (>60 ml/min/1.73 sqM); Potassium 4.6 mmol/L (3.5-5.1); Sodium 136 mmol/L (137-145); Total Bilirubin 1.1 mg/dL (0.2-1.3); Total Protein 6.2 g/dL (6.3-8.2)
[2024-04-21 13:03] LABS: NT-Pro-B-Type Natriuretic Pept 3370 pg/mL
[2024-04-21 13:18] LABS: Influenza A Detected (Not Detectd); Influenza B Not Detected (Not Detectd); RSV Not Detected (Not Detectd)
[2024-04-21] MEDS: methylPREDNISolone SOD SUCCI 125 MG/2 ML VIAL IV STA (13:47)
[2024-04-21] MEDS: FUROSEMIDE 10 MG/ML 4 ML VIAL IV STA (13:50)
[2024-04-21] MEDS: IPRATROPIUM-ALBUTEROL 3 ML NEB INHALATION STA (14:59)
[2024-04-21] MEDS: ACETAMINOPHEN TAB 325 MG TAB PO STA (15:33)
[2024-04-21] MEDS: SODIUM CHLORIDE 0.9% 500 ML 500 ML IV ONE (15:34)
[2024-04-21] MEDS ORDERED: PNEUMONIA PROTOCOL UTILIZED 1 EACH MISC PO PRN (15:38)
[2024-04-21] MEDS ORDERED: ACETAMINOPHEN TAB 325 MG TAB PO PRN (15:38)
[2024-04-21] MEDS: carvediloL 12.5 MG TAB PO STA (16:22)
[2024-04-21] MEDS ORDERED: HYDROcodone/APAP 5-325MG 1 EACH TAB PO PRN (16:48)
[2024-04-21] MEDS ORDERED: NALOXONE 0.4 MG/ML 1 ML VIAL IV PRN (16:48)
[2024-04-21] MEDS ORDERED: MORPHINE SULFATE 4 MG/ML SYRINGE IV PRN (16:48)
[2024-04-21] MEDS: AZITHROMYCIN 500 MG in SODIUM CHLORIDE 0.9% 250 ML IVPB STA (17:21)
[2024-04-21] MEDS: IPRATROPIUM-ALBUTEROL 3 ML NEB INHALATION SCH (20:29)
[2024-04-21] MEDS: ATORVASTATIN 80 MG TAB PO SCH (21:56)
[2024-04-21] MEDS: APIXABAN 5 MG TAB PO SCH (21:56)
[2024-04-21] MEDS: ASPIRIN 81 MG PO SCH (21:56)
[2024-04-21] MEDS: LOSARTAN 50 MG TAB PO SCH (21:56)
[2024-04-21] MEDS: FAMOTIDINE 20 MG TAB PO SCH (21:56)
[2024-04-21] MEDS: LATANOPROST 0.005% OPHTH DROPS 2.5 ML BTL BOTH EYES SCH (22:33)
[2024-04-21] MEDS: OSELTAMIVIR 75 MG CAP PO SCH (22:34)
[2024-04-22] MEDS: carvediloL 12.5 MG TAB PO SCH (09:28)
[2024-04-22] MEDS: TAMSULOSIN 0.4 MG CAP.ER.24H PO SCH (09:28)
[2024-04-22] MEDS: AZITHROMYCIN 500 MG TAB PO SCH (09:29)
[2024-04-22] MEDS: LEVOTHYROXINE 137 MCG TAB PO SCH (09:29)
[2024-04-22] MEDS: SODIUM CHLORIDE 0.9% 1,000 ML IV SCH (11:01)
--- NOTE | 2024-04-22 11:05 | P.HPIM ---
History of Present Illness -year-old male came in with complaints of fatigue and subjective fevers patient did not have any fever here patient is found to be in atrial fibrillation with rapid unclear rate does have history of congestive heart failure, atrial fib rillation and coronary artery disease. Patient takes Coreg and Eliquis at home. Patient was complaining of cough with white to yellow sputum production chest x-ray did not show any evidence of pneumonia I will obtain a procalcitonin level. Patient was given antibiotics Rocephin azithromycin which will be discontinued. Patient is still tachycardic patient blood pressure is low because of which I will change to metoprolol given additional dose of metoprolol now and and will be started on 75 twice a day of metoprolol with cardiology consultation. Patient's last echocardiogram is from 2020. Patient denied any lower extremity edema denying orthopnea paroxysmal nocturnal dyspnea patient is also getting IV fluids which will be discontinued considering his heart failure history with EF of around 40 to 45% in the past. Patient is not volume depleted at this time REVIEW OF SYSTEMS: All other systems are negative except those mentioned in the HPI PHYSICAL EXAMINATION: GENERAL: The patient is alert and oriented x3, not in any acute distress. Well developed, well nourished. HEENT: Pupils are round and equally reacting to light. EOMI. No scleral icterus. No conjunctival pallor. Normocephalic, atraumatic. No pharyngeal erythema. No thyromegaly. CARDIOVASCULAR: S1 and S2 present. No murmurs, rubs, or gallops. PULMONARY: Chest is clear to auscultation, no wheezing or crackles. ABDOMEN: Soft, nontender, nondistended, normoactive bowel sounds. No palpable organomegaly. MUSCULOSKELETAL: No joint swelling or deformity. EXTREMITIES: No cyanosis, clubbing, or pedal edema. NEUROLOGICAL: Gross neurological examination did not reveal any focal deficits. SKIN: No rashes. Assessment and plan -Influenza A infection with hypoxemia, supportive care -Congestive heart failure chronic systolic function without any acute exacerbation continue his heart failure medication but cut down the dose of losartan to 50 daily because of his low blood pressure --Atrial fibrillation with rapid ventricular rate patient will be urination dose of metoprolol and resume his Eliquis. Cardiology will be consulted -Benign prostatic hypertrophy -Hypothyroidism -Coronary artery disease with CABG in the past DVT prophylaxis: On Eliquis which will be continued. Past Medical History Past Medical History: Cancer, Hyperlipidemia, Hypertension, Myocardial Infarction ([place]), Prostate Disorder, Thyroid Disorder Additional Past Medical History / Comment(s): "micro-cancer thyroid". aneurysm Last Myocardial Infarction Date:: 2007 History of Any Multi-Drug Resistant Organisms: None Reported Past Surgical History: Coronary Bypass/CABG Additional Past Surgical History / Comment(s): throidectomy, triple bypass,parathyroid removed Past Anesthesia/Blood Transfusion Reactions: No Reported Reaction Past Psychological History: No Psychological Hx Reported Past Alcohol Use History: None Reported Past Drug Use History: None Reported - Past Family History Brother(s) Additional Family Medical History / Comment(s): 2 brothers aneurysm-1 Medications and Allergies Home Medications Medication Instructions Recorded Confirmed Type Aspirin [Adult Low Dose Aspirin EC] 81 mg PO HS 12/14/18 04/21/24 History Fish Oil/Dha/Epa [Fish Oil 1,200 1 cap PO HS 12/14/18 04/21/24 History mg Fish Oil] Multivitamins, Thera [Multivitamin 1 tab PO HS 12/14/18 04/21/24 History (formulary)] Tamsulosin [Flomax] 0.4 mg PO DAILY 12/14/18 04/21/24 History Vit C/E/Zn/Coppr/Lutein/Zeaxan 1 cap PO BID 12/14/18 04/21/24 History [Preservision Areds 2 Softgel] carvediloL [Coreg] 12.5 mg PO BID 12/14/18 04/21/24 History Apixaban [Eliquis] 5 mg PO BID #60 tab 09/04/20 04/21/24 Rx Famotidine [Pepcid] 20 mg PO BID #30 tablet 09/04/20 04/21/24 Rx Albuterol Nebulized [Ventolin 2.5 mg INHALATION RT-Q4H 04/21/24 04/21/24 History Nebulized] Atorvastatin [Lipitor] 80 mg PO HS 04/21/24 04/21/24 History Latanoprost [Latanoprost 0.005%] 1 drop BOTH EYES HS 04/21/24 04/21/24 History Levothyroxine Sodium [Synthroid] 137 mcg PO DAILY 04/21/24 04/21/24 History Losartan Potassium [Cozaar] 100 mg PO HS 04/21/24 04/21/24 History Oseltamivir [Tamiflu] 75 mg PO BID 04/21/24 04/21/24 History predniSONE [Deltasone] 20 mg PO DAILY 04/21/24 04/21/24 History Allergies Allergy/AdvReac Type Severity Reaction Status Date / Time No Known Allergies Allergy Verified 04/21/24 16:34 Physical Exam Vitals: Vital Signs Temp Pulse Resp BP Pulse Ox 04/22/24 11:02 115 H 20 115/86 93 L 04/22/24 09:47 117 H 04/22/24 09:30 117 H 95 04/22/24 09:00 122 H 19 134/102 97 04/22/24 05:42 120 H 18 106/92 98 04/22/24 05:03 97.5 F L 04/22/24 02:16 112 H 16 143/95 96 04/21/24 22:35 112 H 18 103/82 94 L 04/21/24 20:38 112 H 04/21/24 20:31 112 H 04/21/24 18:33 98.7 F 112 H 20 110/85 97 04/21/24 16:56 118 H 18 131/75 95 04/21/24 16:20 98.1 F 140 H 18 131/75 94 L 04/21/24 13:46 112 H 20 125/75 94 L 04/21/24 11:53 20 04/21/24 11:50 98.1 F 82 20 139/91 92 L Results CBC & Chem 7: 04/21/24 12:31 04/21/24 12:31 Labs: Abnormal Lab Results - Last 24 Hours (Table) 04/21/24 04/21/24 04/21/24 Range/Units 12:31 12:31 12:31 WBC 18.3 H (3.8-10.6) k/uL MCV 106.6 H (80.0-100.0) fL Neutrophils # 16.4 H (1.3-7.7) k/uL Lymphocytes # 0.9 L (1.0-4.8) k/uL PT 12.9 H (10.0-12.5) sec INR 1.2 H (<1.2) Sodium 136 L (137-145) mmol/L BUN 24 H (9-20) mg/dL Glucose 126 H (74-99) mg/dL Total Protein 6.2 L (6.3-8.2) g/dL Influenza Type A (PCR) (Not Detectd) 04/21/24 Range/Units 12:31 WBC (3.8-10.6) k/uL MCV (80.0-100.0) fL Neutrophils # (1.3-7.7) k/uL Lymphocytes # (1.0-4.8) k/uL PT (10.0-12.5) sec INR (<1.2) Sodium (137-145) mmol/L BUN (9-20) mg/dL Glucose (74-99) mg/dL Total Protein (6.3-8.2) g/dL Influenza Type A (PCR) Detected A (Not Detectd)
[2024-04-22 11:17] LABS: Basophils % (A) 0 %; Eosinophils # (A) 0.1 k/uL (0-0.7); Eosinophils % (A) 0 %; HCT 47.7 % (39.0-53.0); HGB 14.8 gm/dL (13.0-17.5); Lymphocytes # (A) 1.1 k/uL (1.0-4.8); Lymphocytes % (A) 6 %; MCH 33.4 pg (25.0-35.0); MCHC 31.1 g/dL (31.0-37.0); MCV 107.4 fL (80.0-100.0); Macrocytosis Moderate; Mean Platelet Volume 9.8; Monocytes # (A) 0.5 k/uL (0-1.0); Monocytes % (A) 3 %; Neutrophils # (A) 17.9 k/uL (1.3-7.7); Neutrophils % (A) 91 %; Platelet Count 161 k/uL (150-450); RBC 4.44 m/uL (4.30-5.90); RDW 12.6 % (11.5-15.5); WBC 19.8 k/uL (3.8-10.6)
[2024-04-22 11:31] LABS: African American GFR (CKD) >90 (>60 ml/min/1.73 sqM); Anion Gap 9 mmol/L; Blood Urea Nitrogen 31 mg/dL (9-20); Calcium 8.5 mg/dL (8.4-10.2); Carbon Dioxide 27 mmol/L (22-30); Chloride 100 mmol/L (98-107); Glucose 194 mg/dL (74-99); Non-African American GFR(CKD) 89 (>60 ml/min/1.73 sqM); Sodium 136 mmol/L (137-145)
[2024-04-22] MEDS: METOPROLOL TARTRATE 25 MG TAB PO STA (11:31)
[2024-04-22] MEDS: MAGNESIUM SULFATE-D5W PMX 1 GM in DEXTROSE/WATER 1 100ML.BAG IVPB SCH (11:32)
[2024-04-22 11:34] LABS: Potassium 4.4 mmol/L (3.5-5.1)
[2024-04-22] MEDS: METOPROLOL TARTRATE 25 MG TAB PO SCH (20:13)
[2024-04-23] MEDS: METOPROLOL TARTRATE 25 MG TAB PO STA (09:56)
--- NOTE | 2024-04-23 13:10 | CA ---
Transthoracic Echo Report Name: Osito Tran Age: 73 Gender: M : 1950 Exam Date: 04/23/2024 12:00 Exam Location: [place] [facility] Ht (in): 67 Wt (lb): 237 Ordering Physician: Karen Hua Attending/Referring Phys: [id number], Melita Data Entry Specialist Karine Gonzalez RDCS Procedure CPT: Indications: lv function, + flu, Afib RVR Cardiac Hx: Hx of AO anurysm Technical Quality: Technically difficult study Contrast 1: Definity Total Dose (mL): 2 Contrast 2: Total Dose (mL): MEASUREMENTS (Male / Female) Normal Values 2D ECHO LV Diastolic Diameter PLAX 5.2 cm 4.2 - 5.9 / 3.9 - 5.3 cm LV Systolic Diameter PLAX 4.0 cm IVS Diastolic Thickness 1.4 cm 0.6 - 1.0 / 0.6 - 0.9 cm LVPW Diastolic Thickness 1.3 cm 0.6 - 1.0 / 0.6 - 0.9 cm LV Relative Wall Thickness 0.5 RV Internal Dim ED PLAX 3.6 cm LVOT Diameter 2.4 cm LA Systolic Diameter LX 5.1 cm 3.0 - 4.0 / 2.7 - 3.8 cm LV Diastolic Volume MOD 4C 105.9 cm??? LV Systolic Volume MOD 4C 88.8 cm??? LV Ejection Fraction MOD 4C 16.1 % LV Cardiac Index MOD 4C 727.3 cm???/min???m??? LV Diastolic Length 4C 7.8 cm LV Systolic Length 4C 7.9 cm LV Diastolic Volume MOD 2C 114.3 cm??? LV Systolic Volume MOD 2C 85.8 cm??? LV Ejection Fraction MOD 2C 25.0 % LV Cardiac Index MOD 2C 1215.6 cm???/min???m??? LV Diastolic Length 2C 8.6 cm LV Systolic Length 2C 7.7 cm LA Volume 96.6 cm??? 18 - 58 / 22 - 52 cm??? LA Volume Index 42.0 cm???/m??? 16 - 28 cm???/m??? M-MODE Aortic Root Diameter MM 3.3 cm DOPPLER AV Peak Velocity 140.2 cm/s AV Peak Gradient 7.9 mmHg TR Peak Velocity 242.8 cm/s TR Peak Gradient 23.6 mmHg Right Ventricular Systolic Press 28.0 mmHg FINDINGS Left Ventricle Left ventricular ejection fraction is estimated at 25-30 %. Left ventricular cavity size normal. Severe global hypokinesis.Mildly increased left ventricular wall thickness. Right Ventricle Mild right ventricular dilatation. Right ventricular systolic pressure within normal limits. Right Atrium Severe right atrial dilatation. Left Atrium Moderately increased left atrial diameter. Severely increased left atrial volume. Mildly increased left atrial area. Mitral Valve Mitral valve thickened. Mild mitral annular calcification.mild mitral regurgitation. Aortic Valve Trileaflet aortic valve. Thickened aortic valve without stenosis. Tricuspid Valve Structurally normal tricuspid valve. Mild tricuspid regurgitation. Pulmonic Valve Pulmonic valve not well visualized. Pericardium No pericardial effusion. Aorta Normal size aortic root and proximal ascending aorta. CONCLUSIONS 1. Severe global hypokinesis of the left ventricle 2. Mild mitral and tricuspid regurgitation Technically difficult study. Definity ECHO contrast used for improved visualization of the endocardial borders (inadequate visualization of two or more contiguous segments). Previewed by: Dr. Laurie Friedman MD (Electronically Signed) Final Date: 23 April 2024 13:09
--- NOTE | 2024-04-23 14:13 | P.CRDCN ---
History of Present Illness History of present illness: HISTORY OF PRESENT ILLNESS: This is a 73-year-old male with a past medical history significant for coronary artery disease with previous CABG, cardiomyopathy, paroxysmal A-fib, hypertensi on, hyperlipidemia, status bradycardia, PVCs, AAA status post endovascular repair, carotid atherosclerosis status post right carotid endarterectomy, and obesity. Patient follows in the office with Dr. Altman. We have been asked to see the patient in consultation for A-fib with RVR. Patient examined at the bedside. Patient presented to the hospital with a chief complaint of feeling unwell and having shortness of breath. Patient was found to be positive for influenza A. Additionally, patient was found to be in A-fib with RVR. The patient does have a known history of atrial fibrillation. He remains in atrial fibrillation with heart rate in the 130s at the time of examination. Patient was switched from carvedilol to metoprolol per primary medicine. Blood pressures are stable. DIAGNOSTICS: - EKG reveals A-fib with RVR. - Chest xray chronic changes without acute pulmonary process. - Laboratory data: WBC 19.8. Hemoglobin 14.8. Platelet count 161. Sodium 136. Potassium 4.4. BUN 31. Creatinine 0.76. Troponin negative x 1. proBNP 3370. - Current home cardiac medications include atorvastatin 80 mg at night, aspirin 81 mg at night, carvedilol 12.5 mg twice a day, Eliquis 5 mg twice a day, losartan 100 mg at night - Echocardiogram obtained this admission reveals ejection fraction 25 to 30%, severe global hypokinesis, mild mitral and tricuspid regurgitation - Previous echocardiogram performed in August 2023 revealed ejection fraction 45% with mild AR - Cardiac catheterization history: 2007 revealing severe triple-vessel CAD REVIEW OF SYSTEMS: At the time of my exam: CONSTITUTIONAL: Denies fever or chills. HEENT: Denies blurred vision, vision changes, or eye pain. Denies hemoptysis CARDIOVASCULAR: Denies chest pain. Denies orthopnea. Denies PND. Denies palpitations RESPIRATORY: Denies shortness of breath. GASTROINTESTINAL: Denies abdominal pain. Denies nausea or vomiting. HEMATOLOGIC: Denies bleeding disorders. GENITOURINARY: Denies any blood in urine. SKIN: Denies pruitis. Denies rash. PHYSICAL EXAM: VITAL SIGNS: Reviewed. GENERAL: Well-developed in no acute distress. HEENT: Head is normocephalic. Pupils are equal, round. Sclerae anicteric. Mucous membranes of the mouth are moist. Neck supple. No JVD or thyromegaly LUNGS: Respirations even and unlabored. Lungs essentially clear to auscultation bilaterally. HEART: Tachycardic. Irregular rate and rhythm. S1 and S2 heard. ABDOMEN: Soft. Nondistended. Nontender. EXTREMITIES: Normal range of motion. No clubbing or cyanosis. Peripheral pulses intact. No lower extremity edema NEUROLOGIC: Awake and alert. Oriented x 3. ASSESSMENT: Shortness of breath Acute influenza A Paroxysmal atrial fibrillation with RVR Coronary artery disease with previous CABG Known ischemic cardiomyopathy, 25 to 30% Hypertension Hyperlipidemia History of sinus bradycardia History of PVCs History of AAA status post endovascular repair Carotid atherosclerosis status post right carotid endarterectomy Obesity: BMI 37.1 PLAN: 2D echo obtained and reviewed Increase metoprolol to tartrate to 100 mg twice a day Decrease losartan to 50 mg at night Continue additional cardiac medications including Eliquis, aspirin, and Lipitor Continue telemetry monitoring Further recommendations pending patient course Nurse practitioner note has been reviewed by physician. Signing provider agrees with the documented findings, assessment, and plan of care documented by UNEMPLOYMENT BENEFITS CLAIMS TAKER as a scribe. Past Medical History Past Medical History: Atrial Fibrillation, Cancer, Hyperlipidemia, Hypertension, Myocardial Infarction ([place]), Prostate Disorder, Thyroid Disorder Additional Past Medical History / Comment(s): "micro-cancer thyroid". aneurysm stented Last Myocardial Infarction Date:: 2007 History of Any Multi-Drug Resistant Organisms: None Reported Past Surgical History: Coronary Bypass/CABG Additional Past Surgical History / Comment(s): thyroidectomy, triple bypass,para thyroid removed Past Anesthesia/Blood Transfusion Reactions: No Reported Reaction Past Psychological History: No Psychological Hx Reported Smoking Status: Former smoker Past Alcohol Use History: None Reported Additional Past Alcohol Use History / Comment(s): smoker for 20 years 1ppd quit 2007 Past Drug Use History: None Reported - Past Family History Brother(s) Additional Family Medical History / Comment(s): 2 brothers aneurysm-1 Medications and Allergies Home Medications Medication Instructions Recorded Confirmed Type Aspirin [Adult Low Dose Aspirin EC] 81 mg PO HS 12/14/18 04/21/24 History Fish Oil/Dha/Epa [Fish Oil 1,200 1 cap PO HS 12/14/18 04/21/24 History mg Fish Oil] Multivitamins, Thera [Multivitamin 1 tab PO HS 12/14/18 04/21/24 History (formulary)] Tamsulosin [Flomax] 0.4 mg PO DAILY 12/14/18 04/21/24 History Vit C/E/Zn/Coppr/Lutein/Zeaxan 1 cap PO BID 12/14/18 04/21/24 History [Preservision Areds 2 Softgel] carvediloL [Coreg] 12.5 mg PO BID 12/14/18 04/21/24 History Apixaban [Eliquis] 5 mg PO BID #60 tab 09/04/20 04/21/24 Rx Famotidine [Pepcid] 20 mg PO BID #30 tablet 09/04/20 04/21/24 Rx Albuterol Nebulized [Ventolin 2.5 mg INHALATION RT-Q4H 04/21/24 04/21/24 History Nebulized] Atorvastatin [Lipitor] 80 mg PO HS 04/21/24 04/21/24 History Latanoprost [Latanoprost 0.005%] 1 drop BOTH EYES HS 04/21/24 04/21/24 History Levothyroxine Sodium [Synthroid] 137 mcg PO DAILY 04/21/24 04/21/24 History Losartan Potassium [Cozaar] 100 mg PO HS 04/21/24 04/21/24 History Oseltamivir [Tamiflu] 75 mg PO BID 04/21/24 04/21/24 History predniSONE [Deltasone] 20 mg PO DAILY 04/21/24 04/21/24 History Allergies Allergy/AdvReac Type Severity Reaction Status Date / Time No Known Allergies Allergy Verified 04/21/24 16:34 Physical Exam Vitals: Vital Signs Temp Pulse Pulse Resp BP BP Pulse Ox 04/23/24 08:38 96 04/23/24 08:25 100 04/23/24 08:00 97.7 F 116 H 18 153/84 95 04/23/24 07:33 97.8 F 89 18 134/97 98 04/23/24 06:19 97.6 F 110 H 20 97/79 95 04/23/24 05:39 112 H 20 132/99 98 04/23/24 02:28 98.0 F 103 H 18 108/90 96 04/22/24 20:42 110 H 0303/25 20:30 125 H 04/22/24 20:02 97.9 F 114 H 18 121/80 96 04/22/24 18:38 111 H 18 124/83 96 04/22/24 16:21 116 H 04/22/24 16:13 121 H 04/22/24 16:07 104 H 20 129/82 96 04/22/24 13:38 108 H 18 107/76 95 04/22/24 12:40 101 H 04/22/24 12:33 111 H 04/22/24 11:02 115 H 20 115/86 93 L Intake and Output 04/22/24 04/23/24 04/23/24 22:59 06:59 14:59 Other: Weight 107.501 kg Results 04/22/24 10:57 04/22/24 10:57 CBC 04/22/24 Range/Units 10:57 WBC 19.8 H (3.8-10.6) k/uL RBC 4.44 (4.30-5.90) m/uL Hgb 14.8 (13.0-17.5) gm/dL Hct 47.7 (39.0-53.0) % Plt Count 161 (150-450) k/uL Comprehensive Metabolic Panel 04/22/24 Range/Units 10:57 Sodium 136 L (137-145) mmol/L Potassium 4.4 (3.5-5.1) mmol/L Chloride 100 (98-107) mmol/L Carbon Dioxide 27 (22-30) mmol/L BUN 31 H (9-20) mg/dL Creatinine 0.76 (0.66-1.25) mg/dL Glucose 194 H (74-99) mg/dL Calcium 8.5 (8.4-10.2) mg/dL Current Medications Generic Name Dose Route Start Last Admin Trade Name Freq PRN Reason Stop Dose Admin Acetaminophen 650 mg 04/21/24 15:38 Acetaminophen Tab 325 Mg Tab PO Q4HR PRN Fever and/ or Pain Hydrocodone Bitart/Acetaminophen 1 each 04/21/24 16:48 Hydrocodone/Apap 5-325mg 1 Each Tab PO Q4HR PRN Moderate Pain (Scale 4 to 6) Albuterol/Ipratropium 3 ml 04/21/24 20:00 04/23/24 08:25 Ipratropium-Albuterol 3 Ml Neb INHALATION 3 ml RT-QID CARLEE Administration Apixaban 5 mg 04/21/24 21:00 04/23/24 09:14 Apixaban 5 Mg Tab PO 5 mg BID CARLEE Administration Protocol Aspirin 81 mg 04/21/24 21:00 04/22/24 20:12 Aspirin 81 Mg PO 81 mg HS CARLEE Administration Atorvastatin Calcium 80 mg 04/21/24 21:00 04/22/24 20:12 Atorvastatin 80 Mg Tab PO 80 mg HS CARLEE Administration Famotidine 20 mg 04/21/24 21:00 04/23/24 09:14 Famotidine 20 Mg Tab PO 20 mg BID CARLEE Administration Latanoprost 1 drops 04/21/24 21:00 04/22/24 20:16 Latanoprost 0.005% Ophth Drops 2.5 Ml Btl BOTH EYES 1 drops HS CARLEE Administration Levothyroxine Sodium 137 mcg 04/22/24 06:30 04/23/24 06:10 Levothyroxine 137 Mcg Tab PO 137 mcg 0630 CARLEE Administration Losartan Potassium 50 mg 04/23/24 21:00 Losartan 50 Mg Tab PO HS CARLEE Metoprolol Tartrate 100 mg 04/23/24 21:00 Metoprolol Tartrate 50 Mg Tab PO BID [facility] Miscellaneous Information 1 each 04/21/24 15:38 Pneumonia Protocol Utilized 1 Each Misc PO ONCE PRN Per Protocol Naloxone HCl 0.2 mg 04/21/24 16:48 Naloxone 0.4 Mg/Ml 1 Ml Vial IV Q2M PRN Opioid Reversal Oseltamivir Phosphate 75 mg 04/21/24 21:00 04/22/24 20:14 Oseltamivir 75 Mg Cap PO 75 mg BID CARLEE Administration Protocol Tamsulosin HCl 0.4 mg 04/22/24 09:00 04/23/24 09:14 Tamsulosin 0.4 Mg Cap.Er.24h PO 0.4 mg DAILY CARLEE Administration Intake and Output 04/22/24 04/23/24 04/23/24 22:59 06:59 14:59 Other: Weight 107.501 kg Patient Weight 04/24/24 06:59 Weight 107.501 kg 04/22/24 10:57 04/22/24 10:57
[2024-04-23] MEDS: METOPROLOL TARTRATE 50 MG TAB PO SCH (20:47)
[2024-04-23] MEDS: LOSARTAN 50 MG TAB PO SCH (20:48)
--- NOTE | 2024-04-24 06:07 | P.PN ---
Subjective Progress Note Date: 04/23/24 -year-old male came in with complaints of fatigue and subjective fevers patient did not have any fever here patient is found to be in atrial fibrillation with rapid unclear rate does have history of congestive heart failure, atrial fibrillation and coronary artery disease. Patient takes Coreg and Eliquis at home. Patient was complaining of cough with white to yellow sputum production chest x-ray did not show any evidence of pneumonia I will obtain a procalcitonin level. Patient was given antibiotics Rocephin azithromycin which will be discontinued. Patient is still tachycardic patient blood pressure is low because of which I will change to metoprolol given additional dose of metoprolol now and and will be started on 75 twice a day of metoprolol with cardiology consultation. Patient's last echocardiogram is from 2020. Patient denied any lower extremity edema denying orthopnea paroxysmal nocturnal dyspnea patient is also getting IV fluids which will be discontinued considering his heart failure history with EF of around 40 to 45% in the past. Patient is not volume depleted at this time 04/23/2024 Patient seen and evaluated in follow-up Review of systems: Constitutional: No reports of fatigue, fever, or chills Cardiovascular: No reports of chest pain or palpitations Respiratory: No reports of shortness of breath or cough GI: No reports of nausea, vomiting, or diarrhea : No reports of dysuria or retention Neurovascular: No reports of weakness or numbness All medications have been reviewed REVIEW OF SYSTEMS: All other systems are negative except those mentioned in the HPI PHYSICAL EXAMINATION: GENERAL: The patient is alert and oriented x3, not in any acute distress. Well developed, well nourished. HEENT: Pupils are round and equally reacting to light. EOMI. No scleral icterus. No conjunctival pallor. Normocephalic, atraumatic. No pharyngeal erythema. No thyromegaly. CARDIOVASCULAR: S1 and S2 present. No murmurs, rubs, or gallops. PULMONARY: Chest is clear to auscultation, no wheezing or crackles. ABDOMEN: Soft, nontender, nondistended, normoactive bowel sounds. No palpable organomegaly. MUSCULOSKELETAL: No joint swelling or deformity. EXTREMITIES: No cyanosis, clubbing, or pedal edema. NEUROLOGICAL: Gross neurological examination did not reveal any focal deficits. SKIN: No rashes. Assessment and plan -Influenza A infection with hypoxemia, supportive care, wean FiO2 as tolerated -Congestive heart failure chronic systolic function without any acute exacerbation continue his heart failure medication but cut down the dose of losartan to 50 daily because of his low blood pressure, 2D echo with an EF of 25 to 30% -Atrial fibrillation with rapid ventricular rate continue dose of metoprolol and resume his Eliquis. Cardiology following making adjustments to medications -Benign prostatic hypertrophy -Hypothyroidism -Coronary artery disease with CABG in the past GI prophylaxis DVT prophylaxis: On Eliquis which will be continued. No code The impression and plan of care has been dictated by Maira Howard, Nurse Practitioner as directed. Dr. Laurie MD I have performed a history and examination and MDM of this patient, discussed the same with the dictator, and agree with the dictator's assessment and plan as written ,documented as a scribe. Based on total visit time, I have performed more than 50% of the visit. Objective - Vital Signs Vital signs: Vital Signs Temp 97.8 F 04/23/24 07:33 Pulse 96 04/23/24 08:38 Resp 18 04/23/24 07:33 BP 134/97 04/23/24 07:33 Pulse Ox 98 04/23/24 07:33 FiO2 Intake & Output 04/22/24 04/23/24 04/23/24 18:59 06:59 18:59 Weight 107.501 kg - Labs CBC & Chem 7: 04/22/24 10:57 04/22/24 10:57 Labs: Abnormal Lab Results - Last 24 Hours (Table) 04/22/24 04/22/24 Range/Units 10:57 10:57 WBC 19.8 H (3.8-10.6) k/uL MCV 107.4 H (80.0-100.0) fL Neutrophils # 17.9 H (1.3-7.7) k/uL Sodium 136 L (137-145) mmol/L BUN 31 H (9-20) mg/dL Glucose 194 H (74-99) mg/dL
[2024-04-24 08:03] LABS: Basophils % (A) 0 %; Eosinophils # (A) 0.2 k/uL (0-0.7); Eosinophils % (A) 1 %; HCT 47.3 % (39.0-53.0); Hypochromasia Slight; Lymphocytes % (A) 15 %; MCH 34.3 pg (25.0-35.0); MCHC 31.8 g/dL (31.0-37.0); Macrocytosis Moderate; Monocytes # (A) 0.9 k/uL (0-1.0); Monocytes % (A) 7 %; Neutrophils # (A) 9.8 k/uL (1.3-7.7); Neutrophils % (A) 75 %; Platelet Count 242 k/uL (150-450); RBC 4.38 m/uL (4.30-5.90); RDW 12.6 % (11.5-15.5)
[2024-04-24 08:16] LABS: African American GFR (CKD) 88 (>60 ml/min/1.73 sqM); Anion Gap 3 mmol/L; Blood Urea Nitrogen 29 mg/dL (9-20); Calcium 8.5 mg/dL (8.4-10.2); Carbon Dioxide 35 mmol/L (22-30); Chloride 99 mmol/L (98-107); Glucose 77 mg/dL (74-99); Magnesium 2.5 mg/dL (1.6-2.3); Non-African American GFR(CKD) 76 (>60 ml/min/1.73 sqM); Potassium 4.6 mmol/L (3.5-5.1); Sodium 137 mmol/L (137-145)
--- NOTE | 2024-04-24 13:03 | P.PN ---
Subjective HISTORY OF PRESENT ILLNESS: This is a 73-year-old male with a past medical history significant for coronary artery disease with previous CABG, cardiomyopathy, paroxysmal A-fib, hypertension, hyperlipidemia, status bradycardia, PVCs, AAA status post endovascular repair, carotid atherosclerosis status post right carotid endarterectomy, and obesity. Patient follows in the office with Dr. Altman. We have been asked to see the patient in consultation for A-fib with RVR. Patient examined at the bedside. Patient presented to the hospital with a chief complaint of feeling unwell and having shortness of breath. Patient was found to be positive for influenza A. Additionally, patient was found to be in A-fib with RVR. The patient does have a known history of atrial fibrillation. He remains in atrial fibrillation with heart rate in the 130s at the time of examination. Patient was switched from carvedilol to metoprolol per primary medicine. Blood pressures are stable. DIAGNOSTICS: - EKG reveals A-fib with RVR. - Chest xray chronic changes without acute pulmonary process. - Laboratory data: WBC 19.8. Hemoglobin 14.8. Platelet count 161. Sodium 136. Potassium 4.4. BUN 31. Creatinine 0.76. Troponin negative x 1. proBNP 3370. - Current home cardiac medications include atorvastatin 80 mg at night, aspirin 81 mg at night, carvedilol 12.5 mg twice a day, Eliquis 5 mg twice a day, losartan 100 mg at night - Echocardiogram obtained this admission reveals ejection fraction 25 to 30%, severe global hypokinesis, mild mitral and tricuspid regurgitation - Previous echocardiogram performed in August 2023 revealed ejection fraction 45% with mild AR - Cardiac catheterization history: 2007 revealing severe triple-vessel CAD 04/24/2024 Patient examined this morning the bedside. Patient currently denies chest pain or pressure. He denies shortness of breath. He remains in atrial fibrillation with a heart rate around 100. PHYSICAL EXAM: VITAL SIGNS: Reviewed. GENERAL: Well-developed in no acute distress. HEENT: Head is normocephalic. Pupils are equal, round. Sclerae anicteric. Mucous membranes of the mouth are moist. Neck supple. No JVD or thyromegaly LUNGS: Respirations even and unlabored. Lungs essentially clear to auscultation bilaterally. HEART: Tachycardic. Irregular rate and rhythm. S1 and S2 heard. ABDOMEN: Soft. Nondistended. Nontender. EXTREMITIES: Normal range of motion. No clubbing or cyanosis. Peripheral pulses intact. No lower extremity edema NEUROLOGIC: Awake and alert. Oriented x 3. ASSESSMENT: Shortness of breath Acute influenza A Paroxysmal atrial fibrillation with RVR Coronary artery disease with previous CABG Known ischemic cardiomyopathy, 25 to 30% Hypertension Hyperlipidemia History of sinus bradycardia History of PVCs History of AAA status post endovascular repair Carotid atherosclerosis status post right carotid endarterectomy Obesity: BMI 37.1 PLAN: 2D echo obtained and reviewed 150 mg amiodarone bolus followed by oral amiodarone 400 mg twice a day Discontinue losartan. Begin Entresto Add Aldactone, Farxiga, Demadex Continue additional cardiac medications including Eliquis, aspirin, atorvastatin, metoprolol Continue telemetry monitoring Further recommendations pending patient course Nurse practitioner note has been reviewed by physician. Signing provider agrees with the documented findings, assessment, and plan of care documented by THREAD DRAWER as a scribe. Objective - Vital Signs Vital signs: Vital Signs Temp 97.4 F L 04/24/24 08:00 Pulse 92 04/24/24 12:05 Resp 18 04/24/24 08:00 BP 141/95 04/24/24 08:00 Pulse Ox 94 L 04/24/24 08:25 FiO2 Intake & Output 04/23/24 04/24/24 04/24/24 18:59 06:59 18:59 Intake Total 720 10 Balance 720 10 Weight 107.501 kg 103.4 kg Intake: IV 10 0.9 10 Oral 720 Other: # Voids 1 - Labs CBC & Chem 7: 04/24/24 07:03 04/24/24 07:03 Labs: Abnormal Lab Results - Last 24 Hours (Table) 04/24/24 04/24/24 Range/Units 07:03 07:03 WBC 13.0 H (3.8-10.6) k/uL MCV 108.0 H (80.0-100.0) fL Neutrophils # 9.8 H (1.3-7.7) k/uL Carbon Dioxide 35 H (22-30) mmol/L BUN 29 H (9-20) mg/dL Magnesium 2.5 H (1.6-2.3) mg/dL
[2024-04-24] MEDS: DEXTROSE 5% IN WATER 100 ML with AMIODARONE 150 MG IV ONE (13:51)
[2024-04-24] MEDS: TORSEMIDE 20 MG TAB PO SCH (14:12)
[2024-04-24] MEDS: SPIRONOLACTONE 25 MG TAB PO SCH (14:12)
[2024-04-24] MEDS: DAPAGLIFLOZIN PROPANEDIOL 10 MG TABLET PO SCH (14:13)
[2024-04-24] MEDS: SACUBITRIL/VALSARTAN 49 MG-51 MG TABLET PO SCH (20:27)
[2024-04-24] MEDS: AMIODARONE 200 MG TAB PO SCH (20:27)
[2024-04-24 23:54] VITALS: RESP 16
[2024-04-25 07:53] LABS: Basophils % (A) 0 %; Eosinophils # (A) 0.3 k/uL (0-0.7); Eosinophils % (A) 2 %; HCT 52.6 % (39.0-53.0); HGB 16.7 gm/dL (13.0-17.5); Lymphocytes # (A) 2.2 k/uL (1.0-4.8); Lymphocytes % (A) 14 %; MCH 33.6 pg (25.0-35.0); MCHC 31.8 g/dL (31.0-37.0); MCV 105.7 fL (80.0-100.0); Macrocytosis Slight; Mean Platelet Volume 9.3; Monocytes # (A) 0.7 k/uL (0-1.0); Monocytes % (A) 5 %; Neutrophils # (A) 12.1 k/uL (1.3-7.7); Neutrophils % (A) 78 %; Platelet Count 285 k/uL (150-450); RBC 4.98 m/uL (4.30-5.90); RDW 12.9 % (11.5-15.5); WBC 15.5 k/uL (3.8-10.6)
[2024-04-25 08:10] LABS: ALT 76 U/L (4-49); AST 40 U/L (17-59); African American GFR (CKD) 80 (>60 ml/min/1.73 sqM); Albumin 3.5 g/dL (3.5-5.0); Alkaline Phosphatase 89 U/L (38-126); Anion Gap 8 mmol/L; Blood Urea Nitrogen 23 mg/dL (9-20); Calcium 8.9 mg/dL (8.4-10.2); Carbon Dioxide 31 mmol/L (22-30); Chloride 97 mmol/L (98-107); Glucose 97 mg/dL (74-99); Non-African American GFR(CKD) 70 (>60 ml/min/1.73 sqM); Potassium 4.2 mmol/L (3.5-5.1); Sodium 136 mmol/L (137-145); Total Bilirubin 0.7 mg/dL (0.2-1.3); Total Protein 6.1 g/dL (6.3-8.2)
[2024-04-25 08:42] VITALS: TEMP 97.8
--- NOTE | 2024-04-25 08:55 | P.PN ---
Subjective Progress Note Date: 04/24/24 73-year-old male came in with complaints of fatigue and subjective fevers patient did not have any fever here patient is found to be in atrial fibrillation with rapid unclear rate does have history of congestive heart failure, atrial fibrillation and coronary artery disease. Patient takes Coreg and Eliquis at home. Patient was complaining of cough with white to yellow sputum production chest x-ray did not show any evidence of pneumonia I will obtain a procalcitonin level. Patient was given antibiotics Rocephin azithromycin which will be discontinued. Patient is still tachycardic patient blood pressure is low because of which I will change to metoprolol given additional dose of metoprolol now and and will be started on 75 twice a day of metoprolol with cardiology consultation. Patient's last echocardiogram is from 2020. Patient denied any lower extremity edema denying orthopnea paroxysmal nocturnal dyspnea patient is also getting IV fluids which will be discontinued considering his heart failure history with EF of around 40 to 45% in the past. Patient is not volume depleted at this time 04/24/2024 Patient is seen in follow-up today with cardiology following recommend monitoring overnight continue telemetry monitoring as patient continues to have A-fib on the monitor. Medications are being adjusted. Patient denies chest pain or shortness of breath. Patient denies palpitations with no reported dizziness or lightheadedness when getting up. Patient tolerating diet with no reported nausea or vomiting. Possible for discharge home in the next 24 hours. Review of systems: Constitutional: No reports of fatigue, fever, or chills Cardiovascular: No reports of chest pain or palpitations Respiratory: No reports of shortness of breath or cough GI: No reports of nausea, vomiting, or diarrhea : No reports of dysuria or retention Neurovascular: No reports of weakness or numbness All medications have been reviewed PHYSICAL EXAMINATION: GENERAL: The patient is alert and oriented x3, not in any acute distress. Well developed, well nourished. HEENT: Pupils are round and equally reacting to light. EOMI. No scleral icterus. No conjunctival pallor. Normocephalic, atraumatic. No pharyngeal erythema. No thyromegaly. CARDIOVASCULAR: S1 and S2 present. No murmurs, rubs, or gallops. PULMONARY: Chest is clear to auscultation, no wheezing or crackles. ABDOMEN: Soft, nontender, nondistended, normoactive bowel sounds. No palpable organomegaly. MUSCULOSKELETAL: No joint swelling or deformity. EXTREMITIES: No cyanosis, clubbing, or pedal edema. NEUROLOGICAL: Gross neurological examination did not reveal any focal deficits. SKIN: No rashes. Assessment and plan -Influenza A infection with hypoxemia, supportive care, wean FiO2 as tolerated improving currently on room air -Congestive heart failure chronic systolic function without any acute exacerbation continue his heart failure medication but cut down the dose of losartan to 50 daily because of his low blood pressure, 2D echo with an EF of 25 to 30% -Atrial fibrillation with rapid ventricular rate continue dose of metoprolol and resume his Eliquis. Cardiology following making adjustments to medications -Benign prostatic hypertrophy -Hypothyroidism -Coronary artery disease with CABG in the past GI prophylaxis DVT prophylaxis: On Eliquis which will be continued. No code Plan: Cardiology following recommending monitoring overnight on continue telemetry monitoring as medications have been adjusted. Possible discharge planning in the next 24 hours. The impression and plan of care has been dictated by Maira Howard, Nurse Practitioner as directed. Dr. Laurie MD I have performed a history and examination and MDM of this patient, discussed the same with the dictator, and agree with the dictator's assessment and plan as written ,documented as a scribe. Based on total visit time, I have performed more than 50% of the visit. Objective - Vital Signs Vital signs: Vital Signs Temp 97.4 F L 04/24/24 08:00 Pulse 124 H 04/24/24 08:38 Resp 18 04/24/24 08:00 BP 141/95 04/24/24 08:00 Pulse Ox 94 L 04/24/24 08:25 FiO2 Intake & Output 04/23/24 04/24/24 04/24/24 18:59 06:59 18:59 Intake Total 720 10 Balance 720 10 Weight 107.501 kg 103.4 kg Intake: IV 10 0.9 10 Oral 720 Other: # Voids 1 - Labs CBC & Chem 7: 04/25/24 07:25 04/25/24 07:25 Labs: Abnormal Lab Results - Last 24 Hours (Table) 04/24/24 04/24/24 Range/Units 07:03 07:03 WBC 13.0 H (3.8-10.6) k/uL MCV 108.0 H (80.0-100.0) fL Neutrophils # 9.8 H (1.3-7.7) k/uL Carbon Dioxide 35 H (22-30) mmol/L BUN 29 H (9-20) mg/dL Magnesium 2.5 H (1.6-2.3) mg/dL
--- NOTE | 2024-04-25 10:16 | P.PN ---
Subjective Progress Note Date: 04/25/24 HISTORY OF PRESENT ILLNESS: This is a 73-year-old male with a past medical history significant for coronary artery disease with previous CABG, cardiomyopathy, paroxysmal A-fib, hypertension, hyperlipidemia, status bradycardia, PVCs, AAA status post endovascular repair, carotid atherosclerosis status post right carotid endarterectomy, and obesity. Patient follows in the office with Dr. Altman. We have been asked to see the patient in consultation for A-fib with RVR. Patient examined at the bedside. Patient presented to the hospital with a chief complaint of feeling unwell and having shortness of breath. Patient was found to be positive for influenza A. Additionally, patient was found to be in A-fib with RVR. The patient does have a known history of atrial fibrillation. He remains in atrial fibrillation with heart rate in the 130s at the time of examination. Patient was switched from carvedilol to metoprolol per primary medicine. Blood pressures are stable. DIAGNOSTICS: - EKG reveals A-fib with RVR. - Chest xray chronic changes without acute pulmonary process. - Laboratory data: WBC 19.8. Hemoglobin 14.8. Platelet count 161. Sodium 136. Potassium 4.4. BUN 31. Creatinine 0.76. Troponin negative x 1. proBNP 3370. - Current home cardiac medications include atorvastatin 80 mg at night, aspirin 81 mg at night, carvedilol 12.5 mg twice a day, Eliquis 5 mg twice a day, losart an 100 mg at night - Echocardiogram obtained this admission reveals ejection fraction 25 to 30%, severe global hypokinesis, mild mitral and tricuspid regurgitation - Previous echocardiogram performed in August 2023 revealed ejection fraction 45% with mild AR - Cardiac catheterization history: 2007 revealing severe triple-vessel CAD 04/24/2024 Patient examined this morning the bedside. Patient currently denies chest pain or pressure. He denies shortness of breath. He remains in atrial fibrillation with a heart rate around 100. 04/25/2024 Patient seen and examined at bedside this a.m. He denies any chest pain chest pressure, able to ambulate in the room without any new worsening shortness of b reath. He remains in atrial fibrillation with heart rate around 100 bpm. PHYSICAL EXAM: VITAL SIGNS: Reviewed. GENERAL: Well-developed in no acute distress. HEENT: Head is normocephalic. Pupils are equal, round. Sclerae anicteric. Mucous membranes of the mouth are moist. Neck supple. No JVD or thyromegaly LUNGS: Respirations even and unlabored. Lungs essentially clear to auscultation bilaterally. HEART: Tachycardic. Irregular rate and rhythm. S1 and S2 heard. ABDOMEN: Soft. Nondistended. Nontender. EXTREMITIES: Normal range of motion. No clubbing or cyanosis. Peripheral pulses intact. No lower extremity edema NEUROLOGIC: Awake and alert. Oriented x 3. ASSESSMENT: Shortness of breath Acute influenza A Paroxysmal atrial fibrillation with RVR Coronary artery disease with previous CABG Known ischemic cardiomyopathy, 25 to 30% Hypertension Hyperlipidemia History of sinus bradycardia History of PVCs History of AAA status post endovascular repair Carotid atherosclerosis status post right carotid endarterectomy Obesity: BMI 37.1 PLAN: 2D echocardiogram shows an EF of 25 to 30% global hypokinesia, mild MR, prior echo shows an EF of 45%. Due to his new worsening cardiomyopathy I will start him on candidate for medical therapy. He appears euvolemic today. Continue amiodarone 400 mg twice daily for 7 days. From next week reduce it to 200 mg twice daily, from third week reduce it to 200 mg daily. Continue Aldactone 25 mg daily, Farxiga 10 mg daily, Demadex 10 mg daily, Entresto 24/26 mg daily, metoprolol 100 mg twice daily If does not spontaneously cardiovert in next 1 to 2 weeks, consider cardioversion. He would also need A-fib ablation as he started to develop cardiomyopathy He needs ischemic evaluation with either invasive workup or Lexiscan stress test on outpatient basis Patient is cleared from cardiovascular standpoint. Recommend outpatient follow- up. Cardiology will sign off. Please reconsult us in case of any question. Objective - Vital Signs Vital signs: Vital Signs Temp 97.8 F 04/25/24 08:40 Pulse 107 H 04/25/24 08:56 Resp 16 04/25/24 08:56 BP 133/89 04/25/24 08:40 Pulse Ox 94 L 04/25/24 08:40 FiO2 Intake & Output 04/24/24 04/25/24 04/25/24 18:59 06:59 18:59 Intake Total 10 250 Output Total 1000 Balance -990 250 Weight 101.4 kg Intake: IV 10 10 Invasive Line 1 10 10 Oral 240 Output: Urine 1000 Uretheral (Nathan) 1000 Other: Voiding Method Toilet Toilet # Voids 2 - Labs CBC & Chem 7: 04/25/24 07:25 03 07:25 Labs: Abnormal Lab Results - Last 24 Hours (Table) 04/25/24 04/25/24 Range/Units 07:25 07:25 WBC 15.5 H (3.8-10.6) k/uL MCV 105.7 H (80.0-100.0) fL Neutrophils # 12.1 H (1.3-7.7) k/uL Sodium 136 L (137-145) mmol/L Chloride 97 L (98-107) mmol/L Carbon Dioxide 31 H (22-30) mmol/L BUN 23 H (9-20) mg/dL ALT 76 H (4-49) U/L Total Protein 6.1 L (6.3-8.2) g/dL
[2024-04-25 11:56] VITALS: BP 143/72; PULSE 101
[2024-04-25] MEDS ORDERED: METOPROLOL TARTRATE 5 MG/5 ML VIAL IVP ONE (13:26)
[2024-04-25 15:50] LABS: Appearance,Urine Clear (Clear); Bilirubin,Urine Negative (Negative); Blood,Urine Large (Negative); Color,Urine Colorless; Glucose,Urine (UA) 3+ (Negative); Ketones,Urine Negative (Negative); Leukocyte Esterase,Urine Negative (Negative); Mucus,Urine Rare /hpf; Nitrite,Urine Negative (Negative); Protein,Urine Negative (Negative); RBC,Urine 51 /hpf (0-5); Specific Gravity,Urine 1.009 (1.001-1.035); Urobilinogen,Urine <2.0 mg/dL (<2.0); WBC,Urine 5 /hpf (0-5)
[2024-04-26] MEDS ORDERED: SPIRONOLACTONE 25 MG TAB PO SCH (09:00)
--- NOTE | 2024-04-28 00:32 | P.DS ---
Providers Date of admission: 04/21/24 15:14 Attending physician: Delilah Brito Primary care physician: Marley Bautista Hospital Course: Final Diagnosis -Influenza A infection with hypoxemia -Congestive heart failure chronic systolic function without any acute exacerbation, 2D echo with an EF of 25 to 30% -Paroxysmal atrial fibrillation with rapid ventricular rate -Known ischemic cardiomyopathy with EF of 25 to 30% Hypertension Hyperlipidemia History of AAA with endovascular repair -History of carotid atherosclerosis with prior right carotid enterectomy -Benign prostatic hypertrophy -Hypothyroidism -Coronary artery disease with CABG in the past Discharge Disposition Patient stable for discharge home. Patient will continue with indwelling Jimenez catheter for findings of urinary retention and he was recommended follow-up Dr. Mcgraw in the office. Patient will discharge on optimize medications for his cardiomyopathy. Patient to follow-up with his PCP Dr. Bautista in office and has an appointment scheduled for May 01. 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 Hospital Course This is a 73-year-old male with a past medical history significant for coronary artery disease with previous CABG, cardiomyopathy, paroxysmal A-fib, hypertension, hyperlipidemia, status bradycardia, PVCs, AAA status post endovascular repair, carotid atherosclerosis status post right carotid endarterectomy, and obesity. Patient came in for reports of cough and fever as well as shortness of breath. Patient was found to be positive for influenza A. Patient is found to be in atrial fibrillation with rapid unclear rate. Patient was complaining of cough with white to yellow sputum production; chest x-ray did not show any evidence of pneumonia. Patient was given antibiotics Rocephin azithromycin. Patient's last echocardiogram is from 2020. Patient denied any lower extremity edema denying orthopnea paroxysmal nocturnal dyspnea patient is also getting IV fluids which will be discontinued considering his heart failure history with EF of around 40 to 45% in the past. Cardiology was consulted. Medications are being adjusted. Patient was given an amiodarone bolus and was started on oral amiodarone daily. Entresto was started as well as Aldactone Farxiga and Demadex. Patient has been continued on Eliquis aspirin atorvastatin and metoprolol. He had an echocardiogram done which reveals an EF of 25 to 30% with severe global hypokinesis of left ventricle, mild mitral and tricuspid regurgitation. Patient was monitored closely cardiac telemetry without having any further reports of chest pain or shortness of breath. His urinalysis was found to be negative. He had a white blood cell count 15.5, sodium level 136, BUN of 23 creatinine of 1.05. Patient was found to have urinary retention for which a Jimenez catheter was placed and patient was recommended to follow-up with Dr. Mcgraw on discharge. He will be discharging home. Please see medication reconciliation for a list of current medications. Thank you for allowing us to participate in the care of this patient. The impression and plan of care has been dictated by Meaghan Ashby, Nurse Practitioner as directed. Dr. Laurie MD I have performed a history and physical examination and medical decision making of this patient, discussed the same with the dictator, and agree with the dictators assessment and plan as written, documented as a scribe. Based on total visit time, I have performed more than 50% of this visit. Patient Condition at Discharge: Stable Plan - Discharge Summary New Discharge Prescriptions: New Spironolactone [Aldactone] 25 mg PO DAILY #30 tab Sacubitril/Valsartan [Entresto 49 mg-51 mg Tablet] 1 each PO BID #60 tab Dapagliflozin Propanediol [Farxiga] 10 mg PO DAILY #30 tab Metoprolol Tartrate [Lopressor] 100 mg PO BID #120 tab Amiodarone [Cordarone] 200 mg PO DIRECTED 30 Days #56 tab Torsemide [Demadex] 10 mg PO DAILY #30 tablet Continue Tamsulosin [Flomax] 0.4 mg PO DAILY Multivitamins, Thera [Multivitamin (formulary)] 1 tab PO HS Fish Oil/Dha/Epa [Fish Oil 1,200 mg Fish Oil] 1 cap PO HS Aspirin [Adult Low Dose Aspirin EC] 81 mg PO HS Vit C/E/Zn/Coppr/Lutein/Zeaxan [Preservision Areds 2 Softgel] 1 cap PO BID Apixaban [Eliquis] 5 mg PO BID #60 tab Famotidine [Pepcid] 20 mg PO BID #30 tablet Levothyroxine Sodium [Synthroid] 137 mcg PO DAILY Albuterol Nebulized [Ventolin Nebulized] 2.5 mg INHALATION RT-Q4H Latanoprost [Latanoprost 0.005%] 1 drop BOTH EYES HS Atorvastatin [Lipitor] 80 mg PO HS predniSONE [Deltasone] 20 mg PO DAILY Losartan Potassium [Cozaar] 100 mg PO HS Discontinued carvediloL [Coreg] 12.5 mg PO BID Oseltamivir [Tamiflu] 75 mg PO BID Discharge Medication List Aspirin [Adult Low Dose Aspirin EC] 81 mg PO HS 12/14/18 [History] Fish Oil/Dha/Epa [Fish Oil 1,200 mg Fish Oil] 1 cap PO HS 12/14/18 [History] Multivitamins, Thera [Multivitamin (formulary)] 1 tab PO HS 12/14/18 [History] Tamsulosin [Flomax] 0.4 mg PO DAILY 12/14/18 [History] Vit C/E/Zn/Coppr/Lutein/Zeaxan [Preservision Areds 2 Softgel] 1 cap PO BID 12/14/18 [History] Apixaban [Eliquis] 5 mg PO BID #60 tab 09/04/20 [Rx] Famotidine [Pepcid] 20 mg PO BID #30 tablet 09/04/20 [Rx] Albuterol Nebulized [Ventolin Nebulized] 2.5 mg INHALATION RT-Q4H 04/21/24 [History] Atorvastatin [Lipitor] 80 mg PO HS 04/21/24 [History] Latanoprost [Latanoprost 0.005%] 1 drop BOTH EYES HS 04/21/24 [History] Levothyroxine Sodium [Synthroid] 137 mcg PO DAILY 04/21/24 [History] Losartan Potassium [Cozaar] 100 mg PO HS 04/21/24 [History] predniSONE [Deltasone] 20 mg PO DAILY 04/21/24 [History] Amiodarone [Cordarone] 200 mg PO DIRECTED 30 Days #56 tab 04/25/24 [Rx] Dapagliflozin Propanediol [Farxiga] 10 mg PO DAILY #30 tab 04/25/24 [Rx] Metoprolol Tartrate [Lopressor] 100 mg PO BID #120 tab 04/25/24 [Rx] Sacubitril/Valsartan [Entresto 49 mg-51 mg Tablet] 1 each PO BID #60 tab 04/25/24 [Rx] Spironolactone [Aldactone] 25 mg PO DAILY #30 tab 04/25/24 [Rx] Torsemide [Demadex] 10 mg PO DAILY #30 tablet 04/25/24 [Rx] Follow up Appointment(s)/Referral(s): Jewel Altman MD [STAFF PHYSICIAN] - 05/06/24 3:30 pm Marley Bautista MD [Primary Care Provider] - 05/01/24 11:40 am Pierce Mcgraw MD [STAFF PHYSICIAN] - 1 Week (Office will call patient with an appt date and time) Ambulatory/Diagnostic Orders: Basic Metabolic Panel [LAB.AMB] Time Frame: 3 Days, Location: None Selected Complete Blood Count w/diff [LAB.AMB] Location: None Selected Patient Instructions/Handouts: Influenza (DC) Activity/Diet/Wound Care/Special Instructions: Continue jimenez catheter and follow up with Dr Mcgraw in the office Discharge Disposition: HOME SELF-CARE
--- NOTE | 2024-04-29 14:01 | CDI ---
Documentation Clarification Form Date: 04/29/2024 01:35:04 PM From: Nieves Prakash RN, CCDS Email: [email or web address] Admit Date: 04/21/2024 03:14:00 PM Patient Name: Osito Tran Visit Number: [id number] Discharge Date: 04/25/2024 03:58:00 PM ATTENTION: The Clinical Documentation Specialists (CDI) and [facility] Coding Staff appreciate your assistance in clarifying documentation. Please respond to the clarification below the line at the bottom and electronically sign. The CDI & [facility] Coding staff will review the response and follow-up if needed. Please note: Queries are made part of the Legal Health Record. If you have any questions, please contact the author of this message via ITS. Doctor Alfred Bunn The patient had the documented diagnosis of CHF. Additional clarification is requested. History/Risk Factors: A fib, CAD. Presents to the ED with SOB. Admitted with Influenza A and atrial fibrillation. Clinical Indicators: 04/21 ED: "patient was given 40 mg of IV Lasix." 04/22 H&P: "patient is also getting IV fluids which will be discontinued considering his heart failure history with EF of around 40 to 45% in the past. Congestive heart failure chronic systolic function without any acute exacerbation." 04/23 Cardiology: "Echocardiogram obtained this admission reveals ejection fraction 25 to 30%. Previous echocardiogram performed in August 2023 revealed ejection fraction 45% with mild AR. Known ischemic cardiomyopathy, 25 to 30%." 04/21 BNP: 3370 04/23 Echocardiogram Results: Left ventricular ejection fraction is estimated at 25-30%. Mild right ventricular dilatation. Severe right atrial dilatation. 04/21 Chest X Ray: Chronic changes without acute pulmonary process Treatment: IV Lasix 40mg x1 on 04/21; Entresto 1 tab po BID 04/24-04/25; Torsemide 10mg po daily 04/24-04/25; Metoprolol 25mg po x1 on 04/22; Metoprolol 75mg po BID 04/22- 04/23; Metoprolol 100mg po BID 04/23-04/25 In your professional opinion, can you please clarify the CHF if known? [ X ] Acute on Chronic Systolic Heart Failure (reduced EF) [ ] Chronic Systolic Heart Failure [ ] Other, please specify [ ] Unable to determine MTDD
== END 2024-04-25 15:58 | disposition home or self-care (01) | DRG 193 ==
LOC: EC 11:49 → 3SCARD 15:14
PROVIDERS: ADMIT Hospitalist; ATTEND Hospitalist
DX: J10.1 Influenza due to other identified influenza virus with other respiratory manifestations (principal); I50.23 Acute on chronic systolic (congestive) heart failure; I11.0 Hypertensive heart disease with heart failure; E66.9 Obesity, unspecified; E89.0 Postprocedural hypothyroidism; I48.0 Paroxysmal atrial fibrillation; Z68.37 Body mass index [BMI] 37.0-37.9, adult; E78.5 Hyperlipidemia, unspecified; I25.10 Atherosclerotic heart disease of native coronary artery without angina pectoris; N40.0 Benign prostatic hyperplasia without lower urinary tract symptoms; I25.5 Ischemic cardiomyopathy; I25.2 Old myocardial infarction; Z95.1 Presence of aortocoronary bypass graft; R09.02 Hypoxemia; Z79.01 Long term (current) use of anticoagulants; Z79.82 Long term (current) use of aspirin; Z79.890 Hormone replacement therapy; Z79.899 Other long term (current) drug therapy; Z86.79 Personal history of other diseases of the circulatory system; Z87.891 Personal history of nicotine dependence
CPT/HCPCS: 36415; 71046; 80048; 80053; 81001; 83605; 83735; 83880; 84145; 84484; 85025; 85610; 85730; 87636; 93005; 93306; 94640; 94660; 94760; 96361; 96365; 96366; 96367; 96368; 96374; 96375; 99285

== ENCOUNTER → 2024-08-09 | Outpatient (CLI) | payer MEDICARE, OTHER | END | disposition home or self-care (01) | LOC: LABWHC1 15:08 | PROVIDERS: ATTEND Internal Medicine | DX: B96.7 Clostridium perfringens [C. perfringens] as the cause of diseases classified elsewhere (principal) | CPT/HCPCS: 87324 ==

== ENCOUNTER 2024-08-29 08:41 | Inpatient (IN) | payer MEDICARE, OTHER ==
--- NOTE | 2024-08-29 09:17 | ED ---
General Adult HPI - General Chief complaint: Extremity Problem,Nontraumatic Stated complaint: Leg pain Time Seen by Provider: 08/29/24 08:49 Source: patient Mode of arrival: ambulatory Limitations: no limitations - History of Present Illness Initial comments: Dictation was produced using [employer] dictation software. please excuse any grammatical, word or spelling errors. Chief Complaint: 74-year-old male presents with lower extremity numbness and pain History of Present Illness: 74-year-old male for the last 10 days he has been having worsening lower extremity symptoms. States that it began in the middle of spring this year. States he was working out in the garden and noticed that whenever he ambulates his legs become numb and sometimes painful. Patient states that pain when he walks a considerable distance is in his left lateral thigh. He states that he gets bilateral symptoms however seems to be worse than his left. Patient states that his legs get cold and prickly. The ROS documented in this emergency department record has been reviewed and confirmed by me. Those systems with pertinent positive or negative responses have been documented in the HPI. All other systems are other negative and/or noncontributory. - Related Data Home Medications Medication Instructions Recorded Confirmed Aspirin [Adult Low Dose Aspirin EC] 81 mg PO HS 12/14/18 04/21/24 Fish Oil/Dha/Epa [Fish Oil 1,200 1 cap PO HS 12/14/18 04/21/24 mg Fish Oil] Multivitamins, Thera [Multivitamin 1 tab PO HS 12/14/18 04/21/24 (formulary)] Tamsulosin [Flomax] 0.4 mg PO DAILY 12/14/18 04/21/24 Vit C/E/Zn/Coppr/Lutein/Zeaxan 1 cap PO BID 12/14/18 04/21/24 [Preservision Areds 2 Softgel] Albuterol Nebulized [Ventolin 2.5 mg INHALATION RT-Q4H 04/21/24 04/21/24 Nebulized] Atorvastatin [Lipitor] 80 mg PO HS 04/21/24 04/21/24 Latanoprost [Latanoprost 0.005%] 1 drop BOTH EYES HS 04/21/24 04/21/24 Levothyroxine Sodium [Synthroid] 137 mcg PO DAILY 04/21/24 04/21/24 Losartan Potassium [Cozaar] 100 mg PO HS 04/21/24 04/21/24 predniSONE [Deltasone] 20 mg PO DAILY 04/21/24 04/21/24 Previous Rx's Medication Instructions Recorded Apixaban [Eliquis] 5 mg PO BID #60 tab 09/04/20 Famotidine [Pepcid] 20 mg PO BID #30 tablet 09/04/20 Amiodarone [Cordarone] 200 mg PO DIRECTED 30 Days #56 04/25/24 tab Dapagliflozin Propanediol [Farxiga] 10 mg PO DAILY #30 tab 04/25/24 Metoprolol Tartrate [Lopressor] 100 mg PO BID #120 tab 04/25/24 Sacubitril/Valsartan [Entresto 49 1 each PO BID #60 tab 04/25/24 mg-51 mg Tablet] Spironolactone [Aldactone] 25 mg PO DAILY #30 tab 04/25/24 Torsemide [Demadex] 10 mg PO DAILY #30 tablet 04/25/24 Allergies Allergy/AdvReac Type Severity Reaction Status Date / Time No Known Allergies Allergy Verified 08/29/24 08:45 Review of Systems ROS Statement: Those systems with pertinent positive or pertinent negative responses have been documented in the HPI. ROS Other: All systems not noted in ROS Statement are negative. Past Medical History Past Medical History: Atrial Fibrillation, Cancer, Hyperlipidemia, Hypertension, Myocardial Infarction (ID), Prostate Disorder, Thyroid Disorder Additional Past Medical History / Comment(s): "micro-cancer thyroid". aneurysm stented Last Myocardial Infarction Date:: 2007 History of Any Multi-Drug Resistant Organisms: None Reported Past Surgical History: Coronary Bypass/CABG Additional Past Surgical History / Comment(s): thyroidectomy, triple bypass,parathyroid removed Past Anesthesia/Blood Transfusion Reactions: No Reported Reaction Past Psychological History: No Psychological Hx Reported Smoking Status: Former smoker Past Alcohol Use History: None Reported Past Drug Use History: None Reported - Past Family History Brother(s) Additional Family Medical History / Comment(s): 2 brothers aneurysm-1 General Exam - General Exam Comments Initial Comments: PHYSICAL EXAM: General Impression: Alert and oriented x3, not in acute distress HEENT: Normocephalic atraumatic, extra-ocular movements intact, pupils equal and reactive to light bilaterally, mucous membranes moist. Cardiovascular: Heart regular rate and rhythm Chest: Able to complete full sentences, no retractions, no tachypnea Abdomen: abdomen soft, non-tender, non-distended, no organomegaly Musculoskeletal: Pulses in the bilateral lower extremities, no peripheral edema Motor: no focal deficits noted Neurological: CN II-XII grossly intact, no focal motor or sensory deficits noted Skin: Intact with no visualized rashes Psych: Normal affect and mood Limitations: no limitations Course Vital Signs 08/29/24 08/29/24 08/29/24 08:42 10:56 12:05 Temperature 97.6 F 97.3 F L Pulse Rate 64 60 65 Respiratory 18 18 18 Rate Blood Pressure 139/53 119/59 134/77 O2 Sat by Pulse 98 96 97 Oximetry - Reevaluation(s) Reevaluation #1: 08/29/24 09:16 [id number] bedside ultrasound performed showing no Doppler signal to the left dorsalis pedis, right dorsalis pedis, left posterior tibialis Reevaluation #2: 08/29/24 11:58 Patient reevaluated at the bedside asked if he has any symptoms states that his leg still feels rather prickly. Patient case was discussed with Dr. Giron states that patient can be discharged and follow-up in the office if he is asymptomatic. Disposition options were discussed with patient he did not feel comfortable going home and was agreeable for hospital admission with consultation to cardiology and vascular surgery. Medical Decision Making - Medical Decision Making Was pt. sent in by a medical professional or institution (, PA, OPEN HEARTH STOCKYARD SUPERVISOR, urgent care, hospital, or intermediate...) When possible be specific @ -No Did you speak to anyone other than the patient for history (EMS, parent, family, police, friend...)? What history was obtained from this source @ -No Did you review nursing and triage notes (agree or disagree)? Why? @ -I reviewed and agree with nursing and triage notes Were old charts reviewed (outside hosp., previous admission, EMS record, old EKG, old radiological studies, urgent care reports/EKG's, intermediate records)? Report findings @ -No old charts were reviewed Differential Diagnosis (chest pain, altered mental status, abdominal pain women, abdominal pain men, vaginal bleeding, musculoskeletal, weakness, fever, dyspnea, syncope, headache, dizziness, GI bleed, back pain, seizure, CVA, palpatations, mental health)? @ -Ischemic limb, sciatica, DVT EKG interpreted by me (3pts min.). @ -See above X-rays interpreted by me (1pt min.). @ -None done CT interpreted by me (1pt min.). @ -CT angiography shows occlusion of iliac artery stent and external iliac artery with reconstitution at the common femoral artery U/S interpreted by me (1pt. min.). @ -None done What testing was considered but not performed or refused? (CT, X-rays, U/S, labs)? Why? @ -None What meds were considered but not given or refused? Why? @ -None Was smoking cessation discussed for >3mins.? @ -No Were there social determinants of health that impacted care today? How? (Homelessness, low income, unemployed, alcoholism, drug addiction, transportation, low edu. Level, literacy, decrease access to med. care, correction, rehab)? @ -No Was there de-escalation of care discussed even if they declined (Discuss DNR or withdrawal of care, Hospice)? DNR status @ -No What co-morbidities impacted this encounter? (DM, HTN, Smoking, COPD, CAD, Cancer, CVA, ARF, Chemo, Hep., AIDS, mental health diagnosis, sleep apnea, morbid obesity)? @ -Peripheral arterial disease Was patient admitted / discharged? Hospital course, mention meds given and route, prescriptions, significant lab abnormalities, going to OR and other pertinent info. @ -74-year-old male presents emergency department for symptoms of ischemic limb versus intermittent claudication. Vital signs upon arrival are within acceptable limits. Initially patient did not complain of any symptoms however upon reevaluation states that he has had this worsening prickly sensation to his left foot that does not go away at rest. States however that he has no pain at rest. Laboratory evaluation is unremarkable. Lactic acid level is normal. Imaging study shows iliac artery occlusion with reconstitution. Case was discussed with Dr. Giron as described above. Patient not quite asymptomatic upon reevaluation at 12:06 PM. Decision was made that patient be admitted consultation to vascular and cardiology Did you discuss the management of the patient with other professionals (professionals i.e. DrTaylor, PA, [employer] ST[employer]YARD SUPERVISOR, lab, RT, psych nurse, social media sr strategy manager, resource center teacher, teacher, corporate development officer, correctional casework specialist)? Give summary @ -Case discussed with hospitalist. Was critical care preformed (if so, how long)? @ -77 minutes for management of ischemic limb Undiagnosed new problem with uncertain prognosis? @ -No Drug Therapy requiring intensive monitoring for toxicity (Heparin, Nitro, Insulin, Cardizem)? @ -No Were any procedures done? @ -No Diagnosis/symptom? Acute, or Chronic, or Acute on Chronic? Uncomplicated (wit hout systemic symptoms) or Complicated (systemic symptoms)? @ -Ischemic limb Side effects of treatment? @ -No Exacerbation, Progression, or Severe Exacerbation? @ -No Poses a threat to life or bodily function? How? (Chest pain, USA, ID, pneumonia, PE, COPD, DKA, ARF, appy, cholecystitis, CVA, Diverticulitis, Homicidal, Suicidal, threat to staff... and all critical care pts) @ -yes - Lab Data Result diagrams: 08/29/24 09:25 08/29/24 09:25 Lab Results 08/29/24 08/29/24 08/29/24 Range/Units 09:25 09:25 09:25 WBC 11.11 H (4.50-10.00) 10*3/uL RBC 4.15 L (4.40-5.60) 10*6/uL Hgb 14.8 (13.0-17.0) g/dL Hct 43.4 (39.6-50.0) % MCV 104.6 H (80.0-97.0) fL MCH 35.7 H (27.0-32.0) pg MCHC 34.1 (32.0-37.0) g/dL Plt Count 164 (140-440) 10*3/uL MPV 12.1 (9.5-12.2) fL Immature Gran % (Auto) 0.4 % Neutrophils % 69.2 % Lymphocytes % 19.6 % Monocytes % 7.1 % Eosinophils % 3.2 % Basophils % 0.5 % Immature Gran # 0.04 (0.00-0.04) 10*3/uL Neutrophils # 7.68 (1.80-7.70) 10*3/uL Lymphocytes # 2.18 (0.90-5.00) 10*3/uL Monocytes # 0.79 (0.20-1.00) 10*3/uL Eosinophils # 0.36 H (0.04-0.35) 10*3/uL Basophils # 0.06 (0.00-0.10) 10*3/uL PT 10.9 (10.0-12.5) sec INR 1.0 (<1.2) APTT 25.5 (22.0-30.0) sec Sodium 138 (137-145) mmol/L Potassium 4.5 (3.5-5.1) mmol/L Chloride 107 (98-107) mmol/L Carbon Dioxide 20 L (22-30) mmol/L Anion Gap 11 mmol/L BUN 23 H (9-20) mg/dL Creatinine 1.18 (0.66-1.25) mg/dL Est GFR (CKD-EPI)AfAm 69 (>60 ml/min/1.73 sqM) Est GFR (CKD-EPI)NonAf 60 (>60 ml/min/1.73 sqM) Glucose 112 H (74-99) mg/dL Plasma Lactic Acid Sheramn (0.7-2.0) mmol/L Calcium 9.4 (8.4-10.2) mg/dL Magnesium 2.1 (1.6-2.3) mg/dL Total Bilirubin 0.9 (0.2-1.3) mg/dL AST 36 (17-59) U/L ALT 22 (4-49) U/L Alkaline Phosphatase 75 (38-126) U/L Troponin I (0.000-0.034) ng/mL Total Protein 5.9 L (6.3-8.2) g/dL Albumin 3.7 (3.5-5.0) g/dL 08/29/24 08/29/24 Range/Units 09:25 09:25 WBC (4.50-10.00) 10*3/uL RBC (4.40-5.60) 10*6/uL Hgb (13.0-17.0) g/dL Hct (39.6-50.0) % MCV (80.0-97.0) fL MCH (27.0-32.0) pg MCHC (32.0-37.0) g/dL Plt Count (140-440) 10*3/uL MPV (9.5-12.2) fL Immature Gran % (Auto) % Neutrophils % % Lymphocytes % % Monocytes % % Eosinophils % % Basophils % % Immature Gran # (0.00-0.04) 10*3/uL Neutrophils # (1.80-7.70) 10*3/uL Lymphocytes # (0.90-5.00) 10*3/uL Monocytes # (0.20-1.00) 10*3/uL Eosinophils # (0.04-0.35) 10*3/uL Basophils # (0.00-0.10) 10*3/uL PT (10.0-12.5) sec INR (<1.2) APTT (22.0-30.0) sec Sodium (137-145) mmol/L Potassium (3.5-5.1) mmol/L Chloride (98-107) mmol/L Carbon Dioxide (22-30) mmol/L Anion Gap mmol/L BUN (9-20) mg/dL Creatinine (0.66-1.25) mg/dL Est GFR (CKD-EPI)AfAm (>60 ml/min/1.73 sqM) Est GFR (CKD-EPI)NonAf (>60 ml/min/1.73 sqM) Glucose (74-99) mg/dL Plasma Lactic Acid Sherman 1.8 (0.7-2.0) mmol/L Calcium (8.4-10.2) mg/dL Magnesium (1.6-2.3) mg/dL Total Bilirubin (0.2-1.3) mg/dL AST (17-59) U/L ALT (4-49) U/L Alkaline Phosphatase (38-126) U/L Troponin I <0.012 (0.000-0.034) ng/mL Total Protein (6.3-8.2) g/dL Albumin (3.5-5.0) g/dL Disposition Clinical Impression: Limb ischemia Disposition: ADMITTED IP TO THIS HOSP Condition: Fair Referrals: Marley Bautista MD [Primary Care Provider] - 1-2 days Decision Time: 12:09
[2024-08-29 09:47] LABS: ALT 22 U/L (4-49); African American GFR (CKD) 69 (>60 ml/min/1.73 sqM); Anion Gap 11 mmol/L; Blood Urea Nitrogen 23 mg/dL (9-20); Calcium 9.4 mg/dL (8.4-10.2); Carbon Dioxide 20 mmol/L (22-30); Chloride 107 mmol/L (98-107); Glucose 112 mg/dL (74-99); Non-African American GFR(CKD) 60 (>60 ml/min/1.73 sqM); Sodium 138 mmol/L (137-145)
[2024-08-29 09:50] LABS: Albumin 3.7 g/dL (3.5-5.0); Magnesium 2.1 mg/dL (1.6-2.3); Potassium 4.5 mmol/L (3.5-5.1); Total Protein 5.9 g/dL (6.3-8.2)
[2024-08-29 09:51] LABS: AST 36 U/L (17-59); Alkaline Phosphatase 75 U/L (38-126)
[2024-08-29 09:56] LABS: INR 1.0 (<1.2); Partial Thromboplastin Time 25.5 sec (22.0-30.0); Prothrombin Time 10.9 sec (10.0-12.5)
[2024-08-29 09:57] LABS: Basophils # (A) 0.06 10*3/uL (0.00-0.10); Basophils % (A) 0.5 %; Eosinophils # (A) 0.36 10*3/uL (0.04-0.35); Eosinophils % (A) 3.2 %; HCT 43.4 % (39.6-50.0); HGB 14.8 g/dL (13.0-17.0); Lymphocytes # (A) 2.18 10*3/uL (0.90-5.00); Lymphocytes % (A) 19.6 %; MCH 35.7 pg (27.0-32.0); MCHC 34.1 g/dL (32.0-37.0); MCV 104.6 fL (80.0-97.0); Monocytes # (A) 0.79 10*3/uL (0.20-1.00); Monocytes % (A) 7.1 %; Neutrophils # (A) 7.68 10*3/uL (1.80-7.70); Neutrophils % (A) 69.2 %; Platelet Count 164 10*3/uL (140-440); RBC 4.15 10*6/uL (4.40-5.60); RDW 12.8 % (11.5-14.5); WBC 11.11 10*3/uL (4.50-10.00)
--- NOTE | 2024-08-29 11:34 | CT ---
EXAMINATION TYPE: CT angio tho/abd W Run Off DATE OF EXAM: 08/29/2024 10:43 AM COMPARISON: 2021 CLINICAL INDICATION: Male, 74 years old with history of ischemic limb; PHH, ischemic limb TECHNIQUE: CT chest abdomen pelvis with runoff with and without contrast. Multiple thin slice sub-mil limeter images were obtained before contrast and after administration of contrast. 3-D reconstructed images and maximum intensity projection images were obtained. CT angio tho/abd W Run Off CT Contrast: Contrast used:100 mL of Isovue 370 with IV Contrast, Oral contrast used: None CT DLP: 4013 mGycm, Automated exposure control for dose reduction was used. FINDINGS: VASCULAR FINDINGS: ARTERIAL VASCULATURE: The unenhanced images do not demonstrate any evidence to suggest intramural hematoma. After the admin istration of contrast, the aortic arch and thoracic aorta demonstrate a normal course and caliber. Th e pulmonary outflow tract appears within normal limits for size. The thoracic aorta is normal in cou rse and caliber. There is no evidence of aortic dissection, aneurysm or acute aortic injury. Great ar ch vessels patent and normal in course and caliber. PULMONARY ARTERIAL VASCULATURE: Normal caliber. CTA Abdomen and pelvis: There is an infrarenal aortic aneurysm with biiliac stent graft. Excluded lum en measuring up to 3.9 cm. There is no thrombus in the excluded lumen. The left common iliac artery s tent is occluded. The left external iliac artery is occluded there is reconstitution at the left comm on femoral artery. The superficial femoral artery on the left is opacified. The vasculature of the le g demonstrates patency proximally there is poor visualization of the distal posterior and anterior ti bial arteries. CTA Lower extremities: Right: The common femoral and superficial femoral arteries are patent. The popliteal artery is patent . Proximal leg vessels are patent.. Poor bolus timing limits evaluation of the vessels crossing the a nkle. Left: The common femoral and superficial femoral arteries are patent. The popliteal artery is patent. Anterior and posterior tibial arteries are patent proximally. Poor bolus timing limits evaluation of the vessels crossing the ankle. CHEST: LUNGS: No evidence for focal consolidation, pneumothorax or pleural effusion. Mild paraseptal emphyse ma. 6 mm right middle lobe pulmonary nodule series 501 image 94. LARGE AIRWAYS: Central airways are patent. PLEURAL: No pleural effusion or thickening. No pneumothorax. HEART AND PERICARDIUM: Heart is normal in size. There is no pericardial effusion. Severe coronary art syed calcifications present. MEDIASTINUM AND ALEAH: No mediastinal or hilar lymphadenopathy or soft tissue mass. CHEST WALL AND LOWER NECK: Mild gynecomastia changes are noted. LIVER: Unremarkable GALLBLADDER AND BILE DUCTS: Unremarkable. PANCREAS: Unremarkable. SPLEEN: Unremarkable. ADRENAL GLANDS: 16 mm left adrenal lipid rich adenoma right adrenal 19 mm lipid rich adrenal adenoma. KIDNEYS AND URETERS: No evidence of hydronephrosis or renal calculus. The ureters are unremarkable. Nonobstructing 2 mm right renal cyst. PELVIS BLADDER: Large left bladder diverticulum. REPRODUCTIVE: Prostate is enlarged in size measuring 6.0 cm in transverse dimension. ABDOMEN & PELVIS STOMACH AND BOWEL: No evidence of bowel obstruction. PERITONEUM: No evidence of pneumoperitoneum or free fluid. VASCULATURE: No evidence of aortic aneurysm. MUSCULOSKELETAL: No acute osseous abnormalities LYMPH NODES: No gross evidence for lymphadenopathy. SOFT TISSUE/ABDOMINAL WALL: Bilateral fat-containing inguinal hernias. IMPRESSION: 1. 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 Poor bolus timing limits evaluation of the vessels crossing the ankle bilaterally. Consider manufacturing laborer angiography. 2. Infrarenal abdominal aortic aneurysm measuring up to 3.9 cm with mural thrombus. 3. Atherosclerotic disease involving abdominal aorta and lower extremity vasculature. 4. Prostatomegaly, correlate to PSA. 5. Bilateral fat-containing inguinal hernias. 6. There is a large left lateral bladder diverticulum. 7. Severe coronary artery atherosclerosis. 8. Mild aortic valve calcifications. 9. Bilateral adrenal lipid rich adenomas. No follow-up recommended. 10. Right middle lobe pulmonary nodule measuring up to 6 mm similar to prior in 2021. R. No follow-u p recommended. 11. Nonobstructing right renal calculus. [facility], , 08/29/2024 11:31 AM
[2024-08-29] MEDS ORDERED: NALOXONE 0.4 MG/ML 1 ML VIAL IV PRN (12:02)
[2024-08-29] MEDS ORDERED: HEPARIN SODIUM 1,000 UN/ML (10ML VL) IV PRN (12:06)
[2024-08-29] MEDS: SODIUM CHLORIDE 0.9% 1,000 ML IV SCH (12:24)
[2024-08-29] MEDS: HEPARIN SODIUM 1,000 UN/ML (10ML VL) IV ONE (12:25)
[2024-08-29] MEDS: HEPARIN SOD,PORK IN 0.45% NACL 25,000 UNIT in 0.45% NACL 1 250ML.BAG IV SCH (12:28)
[2024-08-29] MEDS: ASPIRIN 81 MG PO SCH (16:30)
[2024-08-29] MEDS ORDERED: ALPRAZolam 0.5 MG TAB PO PRN (18:14)
--- NOTE | 2024-08-29 18:17 | P.CRDCN ---
History of Present Illness Consult date: 08/29/24 History of present illness: HISTORY OF PRESENTING ILLNESS: 73-year-old with PMH of CAD with previous CABG, cardiomyopathy, paroxysmal atrial fibrillation, hypertension dyslipidemia AAA s/p endovascular repair, carotid disease status post right carotid endarterectomy, known to Dr. Hodge Presented to the hospital because of paresthesias and numbness in left lower extremity along with symptoms of intermittent claudication. He reports that just walking in his house he would have charley horses in his leg mostly limited to the left thigh. Due to this he presented to the ER. ................................................................................ .............................................................. Home cardiac medications torsemide 10, Aldactone 25, Entresto 49/51 twice daily, metoprolol 50 in a.m. 20 5 at night, losartan 100, Farxiga 10, Lipitor 80, aspirin 81, Eliquis 5 twice daily, amiodarone 100 Pertient Labs: Hb 14, BUN 23, creatinine 1.18, troponin negative, NT-proBNP 390, TSH 1.4 EKG: [ ] Pertient Imaging: CT aorta with runoff shows left common iliac occlusion, external iliac occlusion with reconstitution at common femoral artery, infrarenal aortic aneurysm 3.9 cm with mural thrombus, prostate hypertrophy, large left lateral bladder diverticulum, severe coronary artery atherosclerosis, bilateral adenoma right middle pulmonary nodule 6 mm ................................................................................ .............................................................. Prior cardiac testing: Echo from 04/2024 shows an EF of 25 to 30%, mild tricuspid regurgitation mild mitral regurgitation ...................... ................................................................................ ........................................ REVIEW OF SYSTEMS: 14 point review of system is negative except what is mentioned above in HPI. ................................................................................ .............................................................. PHYSICAL EXAMINATION: Neck: Brisk carotid upstroke, no jugular venous distention. Lungs: Clear to auscultation. Heart: Regular rate and rhythm, S1-S2, mild systolic murmur Abdomen: Soft nontender, positive bowel sounds. Extremities: Good pulses right lower extremity. Poor pulses left lower extremity, left extremity appears cool to touch, mild skin changes noticed. No mottling, no ulcers, no cyanosis. Neuro: Alert, oritented, no focal deficits. Detailed neuro exam was not performed. .................................................. ................................................................................ ............ ASSESSMENT: # CLTI, with finding of occluded left common iliac, left external iliac, with reconstitution to left [employer]. # Prior history of PAD with AAA with endovascular repair # Prior history of carotid stenosis status post right carotid endarterectomy # Nonischemic cardiomyopathy with a EF of 25 to 30%, NYHA class III, currently euvolemic # CAD status post CABG # Paroxysmal atrial fibrillation # Hypertension, dyslipidemia PLAN: IV heparin drip N.p.o. after midnight for possible peripheral intervention tomorrow with Dr. Hodge Continue aspirin, Lipitor, hold Eliquis Continue amiodarone, Hold metoprolol and blood pressure medications as blood pressure and heart rate are in normal range at this time. Monitor kidney function electrolytes Order lactate, A1c lipid panel Alfred Bunn MD, [facility], [facility] Past Medical History Past Medical History: Atrial Fibrillation, Cancer, Hyperlipidemia, Hypertension, Myocardial Infarction ([place]), Prostate Disorder, Thyroid Disorder Additional Past Medical History / Comment(s): "micro-cancer thyroid". aneurysm stented Last Myocardial Infarction Date:: 2007 History of Any Multi-Drug Resistant Organisms: None Reported Past Surgical History: Coronary Bypass/CABG Additional Past Surgical History / Comment(s): thyroidectomy, triple bypass,parathyroid removed Past Anesthesia/Blood Transfusion Reactions: No Reported Reaction Past Psychological History: No Psychological Hx Reported Smoking Status: Former smoker Past Alcohol Use History: None Reported Past Drug Use History: None Reported - Past Family History Brother(s) Additional Family Medical History / Comment(s): 2 brothers aneurysm-1 Medications and Allergies Home Medications Medication Instructions Recorded Confirmed Type Aspirin [Adult Low Dose Aspirin EC] 81 mg PO HS 12/14/18 08/29/24 History Fish Oil/Dha/Epa [Fish Oil 1,200 1 cap PO HS 12/14/18 08/29/24 History mg Fish Oil] Multivitamins, Thera [Multivitamin 1 tab PO HS 12/14/18 08/29/24 History (formulary)] Tamsulosin [Flomax] 0.4 mg PO BID 12/14/18 08/29/24 History Apixaban [Eliquis] 5 mg PO BID #60 tab 09/04/20 08/29/24 Rx Famotidine [Pepcid] 20 mg PO BID #30 tablet 09/04/20 08/29/24 Rx Albuterol Nebulized [Ventolin 2.5 mg INHALATION RT-QID 04/21/24 08/29/24 History Nebulized] Atorvastatin [Lipitor] 80 mg PO HS 04/21/24 08/29/24 History Latanoprost [Latanoprost 0.005%] 1 drop BOTH EYES HS 04/21/24 08/29/24 History Levothyroxine Sodium [Synthroid] 137 mcg PO DAILY 04/21/24 08/29/24 History Losartan Potassium [Cozaar] 100 mg PO HS 04/21/24 08/29/24 History Dapagliflozin Propanediol [Farxiga] 10 mg PO DAILY #30 tab 04/25/24 08/29/24 Rx Spironolactone [Aldactone] 25 mg PO DAILY #30 tab 04/25/24 08/29/24 Rx Torsemide [Demadex] 10 mg PO DAILY #30 tablet 04/25/24 08/29/24 Rx Amiodarone [Cordarone] 100 mg PO HS 08/29/24 08/29/24 History Eye Health Complex(Visionary Eye 1 tab PO BID 08/29/24 08/29/24 History Vitamin) Metoprolol Tartrate [Lopressor] 25 mg PO HS 08/29/24 08/29/24 History Metoprolol Tartrate [Lopressor] 50 mg PO DAILY 08/29/24 08/29/24 History Sacubitril/Valsartan [Entresto 49 1 tab PO BID 08/29/24 08/29/24 History mg-51 mg Tablet] Allergies Allergy/AdvReac Type Severity Reaction Status Date / Time No Known Allergies Allergy Verified 08/29/24 15:44 Physical Exam Vitals: Vital Signs Temp Pulse Resp BP Pulse Ox 08/29/24 16:26 68 18 110/79 96 08/29/24 12:05 65 18 134/77 97 08/29/24 10:56 97.3 F L 60 18 119/59 96 08/29/24 08:42 97.6 F 64 18 139/53 98 Intake and Output 08/29/24 08/29/24 08/29/24 06:59 14:59 22:59 Other: Weight 96.615 kg Results 08/29/24 09:25 08/29/24 09:25 Cardiac Enzymes 08/29/24 08/29/24 Range/Units 09:25 09:25 AST 36 (17-59) U/L Troponin I <0.012 (0.000-0.034) ng/mL Coagulation 08/29/24 Range/Units 09:25 PT 10.9 (10.0-12.5) sec APTT 25.5 (22.0-30.0) sec CBC 08/29/24 Range/Units 09:25 WBC 11.11 H (4.50-10.00) 10*3/uL RBC 4.15 L (4.40-5.60) 10*6/uL Hgb 14.8 (13.0-17.0) g/dL Hct 43.4 (39.6-50.0) % Plt Count 164 (140-440) 10*3/uL Comprehensive Metabolic Panel 08/29/24 Range/Units 09:25 Sodium 138 (137-145) mmol/L Potassium 4.5 (3.5-5.1) mmol/L Chloride 107 (98-107) mmol/L Carbon Dioxide 20 L (22-30) mmol/L BUN 23 H (9-20) mg/dL Creatinine 1.18 (0.66-1.25) mg/dL Glucose 112 H (74-99) mg/dL Calcium 9.4 (8.4-10.2) mg/dL AST 36 (17-59) U/L ALT 22 (4-49) U/L Alkaline Phosphatase 75 (38-126) U/L Total Protein 5.9 L (6.3-8.2) g/dL Albumin 3.7 (3.5-5.0) g/dL Current Medications Generic Name Dose Route Start Last Admin Trade Name Freq PRN Reason Stop Dose Admin Alprazolam 0.5 mg 08/29/24 18:14 Alprazolam 0.5 Mg Tab PO Q6HR PRN Moderate Anxiety Amiodarone HCl 100 mg 08/29/24 18:15 Amiodarone 100 Mg Tab PO DAILY CARLEE Aspirin 81 mg 08/29/24 13:45 08/29/24 16:30 Aspirin 81 Mg PO 81 mg DAILY CARLEE Administration Atorvastatin Calcium 40 mg 08/29/24 21:00 Atorvastatin 40 Mg Tab PO HS CARLEE Heparin Sodium (Porcine) 0 unit 08/29/24 12:06 Heparin Sodium 1,000 Un/Ml (10ml Vl) IV PER PROTOCOL PRN Low PTT Protocol Sodium Chloride 1,000 mls @ 20 mls/hr 08/29/24 12:15 08/29/24 12:24 Saline 0.9% IV 20 mls/hr .Q24H CARLEE Administration Heparin Sodium/Sodium Chloride 250 mls @ 17.391 mls/hr 08/29/24 12:15 08/29/24 12:28 25,000 unit/ Sodium Chloride IV 18 units/kg/hr .[id number] CARLEE 17.391 mls/hr Administration Protocol 18 UNITS/KG/HR Heparin Sodium (Porcine) 10, 1,001 mls @ 999 mls/hr 08/30/24 07:00 000 unit/ Sodium Chloride IRRIGATION 08/30/24 23:00 ONCE PRN INTRA-OP Heparin Sodium (Porcine) 2,500 250.5 mls @ 250 mls/hr 08/30/24 07:00 unit/ Sodium Chloride IRRIGATION 08/30/24 23:00 ONCE PRN INTRA-OP Sodium Chloride 1,000 ml/ IV 1,000 mls @ 96.615 mls/hr 08/30/24 04:00 Solution IV 08/30/24 09:59 .[id number] CARLEE 1 ML/KG/HR Naloxone HCl 0.2 mg 08/29/24 12:02 Naloxone 0.4 Mg/Ml 1 Ml Vial IV Q2M PRN Opioid Reversal Intake and Output 08/29/24 08/29/24 08/29/24 06:59 14:59 22:59 Other: Weight 96.615 kg Patient Weight 08/30/24 06:59 Weight 96.615 kg 08/29/24 09:25 08/29/24 09:25
[2024-08-29] MEDS: AMIODARONE 100 MG TAB PO SCH (19:29)
--- NOTE | 2024-08-29 19:43 | P.HPIM ---
History of Present Illness Patient is a pleasant 74 years old male with past medical history of multiple medical problems including history of atrial fibrillation Patient presents because of left leg numbness in his left leg that happens even with walking for short distances associated with pain in the left thigh with walking He denies chest pain or dyspnea. No GI/ symptoms. No neurological symptoms no smoking alcohol illicit drugs. Has no fever blood pressure is stable. Labs showing mild leukocytosis 11.1 other CBC BMP LFT INR troponin were negative. Aortic runoff study showing left common iliac stent and external iliac artery occlusions Patient was started on heparin drip and admitted for cardiology team intervention for possible intervention tomorrow Review of Systems Review of systems CONSTITUTIONAL: No fever, no malaise, no fatigue. HEENT: No recent visual problems or hearing problems. Denied any sore throat. CARDIOVASCULAR: No orthopnea, PND, no palpitations, no syncope. PULMONARY: No shortness of breath, no cough, no hemoptysis. GASTROINTESTINAL: No diarrhea, no nausea, no vomiting, no abdominal pain. Normoactive bowel sounds. NEUROLOGICAL: No headaches, no weakness, no numbness. HEMATOLOGICAL: Denies any bleeding or petechiae. GENITOURINARY: Denies any burning micturition, frequency, or urgency. MUSCULOSKELETAL/RHEUMATOLOGICAL: Denies any joint pain, swelling, or any muscle pain. ENDOCRINE: Denies any polyuria or polydipsia. Past Medical History Past Medical History: Atrial Fibrillation, Cancer, Hyperlipidemia, Hypertension, Myocardial Infarction ([place]), Prostate Disorder, Thyroid Disorder Additional Past Medical History / Comment(s): "micro-cancer thyroid". aneurysm stented Last Myocardial Infarction Date:: 2007 History of Any Multi-Drug Resistant Organisms: None Reported Past Surgical History: Coronary Bypass/CABG Additional Past Surgical History / Comment(s): thyroidectomy, triple bypass,parathyroid removed Past Anesthesia/Blood Transfusion Reactions: No Reported Reaction Past Psychological History: No Psychological Hx Reported Smoking Status: Former smoker Past Alcohol Use History: None Reported Past Drug Use History: None Reported - Past Family History Brother(s) Additional Family Medical History / Comment(s): 2 brothers aneurysm-1 Medications and Allergies Home Medications Medication Instructions Recorded Confirmed Type Aspirin [Adult Low Dose Aspirin EC] 81 mg PO HS 12/14/18 08/29/24 History Fish Oil/Dha/Epa [Fish Oil 1,200 1 cap PO HS 12/14/18 08/29/24 History mg Fish Oil] Multivitamins, Thera [Multivitamin 1 tab PO HS 12/14/18 08/29/24 History (formulary)] Tamsulosin [Flomax] 0.4 mg PO BID 12/14/18 08/29/24 History Apixaban [Eliquis] 5 mg PO BID #60 tab 09/04/20 08/29/24 Rx Famotidine [Pepcid] 20 mg PO BID #30 tablet 09/04/20 08/29/24 Rx Albuterol Nebulized [Ventolin 2.5 mg INHALATION RT-QID 04/21/24 08/29/24 History Nebulized] Atorvastatin [Lipitor] 80 mg PO HS 04/21/24 08/29/24 History Latanoprost [Latanoprost 0.005%] 1 drop BOTH EYES HS 04/21/24 08/29/24 History Levothyroxine Sodium [Synthroid] 137 mcg PO DAILY 04/21/24 08/29/24 History Losartan Potassium [Cozaar] 100 mg PO HS 04/21/24 08/29/24 History Dapagliflozin Propanediol [Farxiga] 10 mg PO DAILY #30 tab 04/25/24 08/29/24 Rx Spironolactone [Aldactone] 25 mg PO DAILY #30 tab 04/25/24 08/29/24 Rx Torsemide [Demadex] 10 mg PO DAILY #30 tablet 04/25/24 08/29/24 Rx Amiodarone [Cordarone] 100 mg PO HS 08/29/24 08/29/24 History Eye Health Complex(Visionary Eye 1 tab PO BID 08/29/24 08/29/24 History Vitamin) Metoprolol Tartrate [Lopressor] 25 mg PO HS 08/29/24 08/29/24 History Metoprolol Tartrate [Lopressor] 50 mg PO DAILY 08/29/24 08/29/24 History Sacubitril/Valsartan [Entresto 49 1 tab PO BID 08/29/24 08/29/24 History mg-51 mg Tablet] Allergies Allergy/AdvReac Type Severity Reaction Status Date / Time No Known Allergies Allergy Verified 08/29/24 15:44 Physical Exam Vitals: Vital Signs Temp Pulse Resp BP Pulse Ox 08/29/24 18:17 98.4 F 61 16 105/73 95 08/29/24 16:26 68 18 110/79 96 08/29/24 12:05 65 18 134/77 97 08/29/24 10:56 97.3 F L 60 18 119/59 96 08/29/24 08:42 97.6 F 64 18 139/53 98 Intake and Output 08/29/24 08/29/24 08/29/24 06:59 14:59 22:59 Other: Weight 96.615 kg GENERAL: The patient is alert and oriented x3, not in any acute distress. Well developed, well nourished. HEENT: Pupils are round and equally reacting to light. EOMI. No scleral icterus. No conjunctival pallor. Normocephalic, atraumatic. No pharyngeal erythema. No thyromegaly. CARDIOVASCULAR: S1 and S2 present. No murmurs, rubs, or gallops. PULMONARY: Chest is clear to auscultation, no wheezing , no crackles. ABDOMEN: Soft, nontender, nondistended, normoactive bowel sounds. No palpable organomegaly. MUSCULOSKELETAL: No joint swelling or deformity. EXTREMITIES: No cyanosis, clubbing, or pedal edema. Both lower extremities are cold, dorsalis pedis Pulses could not be appreciated on either side NEUROLOGICAL: Gross neurological examination did not reveal any focal deficits. SKIN: No rashes. no petechiae. Results CBC & Chem 7: 08/29/24:08/29/24 09:25 Labs: Abnormal Lab Results - Last 24 Hours (Table) 08/29/24 08/29/24 Range/Units : 09:25 WBC 11.11 H (4.50-10.00) 10*3/uL RBC 4.15 L (4.40-5.60) 10*6/uL MCV 104.6 H (80.0-97.0) fL MCH 35.7 H (27.0-32.0) pg Eosinophils # 0.36 H (0.04-0.35) 10*3/uL Carbon Dioxide 20 L (22-30) mmol/L BUN 23 H (9-20) mg/dL Glucose 112 H (74-99) mg/dL Total Protein 5.9 L (6.3-8.2) g/dL Assessment and Plan Assessment: Left lower extremity ischemia with intermittent claudication and numbness secondary to left common iliac stent #acute iliac artery occlusion on aortic runoff study Chronic atrial fibrillation Hypertension Hyperlipidemia Hypothyroidism Obesity with BMI 33.4 Plan: Continue with heparin drip Continue with aspirin and Lipitor Cardiac team following closely Plan for vascular intervention tomorrow with cardiology team Patient at some risk from the procedure but there is no absolute contraindication Labs and medication were reviewed.. Continue same treatment. Continue with symptomatic treatment. Resume home medication. Monitor labs and vitals. DVT and GI prophylaxis. Further recommendations as per clinical course of the patient DVT prophylaxis: Subcutaneous heparin GI Prophylaxis: Pepcid PT/OT: Pending Prognosis is guarded
[2024-08-29 20:55] LABS: Cholesterol 139.00 mg/dL (0.00-200.00); HDL Cholesterol 35.80 mg/dL (40.00-60.00); LDL Cholesterol,Calculated 68.4 mg/dL (0.0-131.0); Triglycerides 174.00 mg/dL (0.00-149.00); VLDL Calculation 34.80 mg/dL (5.00-40.00)
[2024-08-29] MEDS: ATORVASTATIN 40 MG TAB PO SCH (22:06)
--- NOTE | 2024-08-29 22:31 | US ---
EXAMINATION TYPE: US arterial LE multi level DATE OF EXAM: 08/29/2024 9:36 PM COMPARISONS: CTA. CLINICAL INDICATION: Male, 74 years old with history of occlusion; occlusion based on CTA TECHNIQUE: Systolic pressures were taken of the upper and lower extremity arteries with ankle-brachia l indices and toe brachial indices calculated bilaterally. History of: Smoker: Prev Hypertension: Takes medication Diabetic: No Hyperlipidemia: Takes meds TIA/CVA: No Previous Vascular Surgery: stent right common iliac artery and right eia CAD: [place]: heart attack Vascular Ulcers: no Claudication: no Gangrene: no FINDINGS: Doppler Waveforms: Right: Left: Brachial Artery systolic pressure: Right: 115 Left: 115 Posterior Tibial artery systolic pressure: Right: 143 Left: 45 Dorsalis Pedis artery systolic pressure: Right: unable to obtain Left: unable to obtain unable to obtain bilateral femoral, popliteal, and DPA waveforms Ankle-Brachial Indices: Right: XX Left: XX Toe Brachial Indices: Right: XX Left: XX (Normal > 0.6; Mild 0.35 - 0.59, Moderate 0.12 - 0.34, Severe <0.12) IMPRESSION: Limited examination. Exam suggestive for stenosis of the left lower arterial system. Additional workup recommended. [facility], , 08/29/2024 10:29 PM
[2024-08-30] MEDS: SODIUM CHLORIDE 0.9% 1,000 ML in EMPTY BAG 1 BAG IV SCH ×2 (02:51→20:58)
[2024-08-30 03:11] LABS: Cholesterol 141.00 mg/dL (0.00-200.00); HDL Cholesterol 45.50 mg/dL (40.00-60.00); LDL Cholesterol,Calculated 74.5 mg/dL (0.0-131.0); Triglycerides 105.00 mg/dL (0.00-149.00); VLDL Calculation 21.00 mg/dL (5.00-40.00)
[2024-08-30] MEDS ORDERED: HEPARIN SODIUM,PORCINE 10,000 UNIT in SODIUM CHLORIDE 0.9% 1,000 ML IRRIGATION PRN (07:00)
[2024-08-30] MEDS ORDERED: HEPARIN SODIUM,PORCINE (1 ML) 2,500 UNIT in SODIUM CHLORIDE 0.9% 250 ML IRRIGATION PRN (07:00)
--- NOTE | 2024-08-30 07:54 | P.PN ---
Subjective Patient is a pleasant 74 years old male with past medical history of multiple medical problems including history of atrial fibrillation Patient presents because of left leg numbness in his left leg that happens even with walking for short distances associated with pain in the left thigh with walking He denies chest pain or dyspnea. No GI/ symptoms. No neurological symptoms no smoking alcohol illicit drugs. Has no fever blood pressure is stable. Labs showing mild leukocytosis 11.1 other CBC BMP LFT INR troponin were negative. Aortic runoff study showing left common iliac stent and external iliac artery occlusions Patient was started on heparin drip and admitted for cardiology team intervention for possible intervention tomorrow 08/30 Patient is awake alert he has uneventful night He remains on a heparin drip and aspirin and other cardiac medication except metoprolol per cost specialist His both legs look warmer today especially the left side is where the occlusion is. No resting pain. No other new complaint. No chest pain or dyspnea. Patient complaint to undergo angioplasty and possible stent placement in his left lower extremity with Dr. Hodge today Renal monitor kidney function check labs in the morning Review of systems CONSTITUTIONAL: No fever, no malaise, no fatigue. HEENT: No recent visual problems or hearing problems. Denied any sore throat. CARDIOVASCULAR: No orthopnea, PND, no palpitations, no syncope. PULMONARY: No shortness of breath, no cough, no hemoptysis. GASTROINTESTINAL: No diarrhea, no nausea, no vomiting, no abdominal pain. Normoactive bowel sounds. NEUROLOGICAL: No headaches, no weakness, no numbness. Active Medications Generic Name Dose Route Start Last Admin Trade Name Freq PRN Reason Stop Dose Admin Alprazolam 0.5 mg 08/29/24 18:14 Alprazolam 0.5 Mg Tab PO Q6HR PRN Moderate Anxiety Amiodarone HCl 100 mg 08/29/24 18:15 08/29/24 19:29 Amiodarone 100 Mg Tab PO 100 mg DAILY CARLEE Administration Aspirin 81 mg 08/29/24 13:45 08/29/24 16:30 Aspirin 81 Mg PO 81 mg DAILY CARLEE Administration Atorvastatin Calcium 40 mg 08/29/24 21:00 08/29/24 22:06 Atorvastatin 40 Mg Tab PO 40 mg HS CARLEE Administration Heparin Sodium (Porcine) 0 unit 08/29/24 12:06 Heparin Sodium 1,000 Un/Ml (10ml Vl) IV PER PROTOCOL PRN Low PTT Protocol Sodium Chloride 1,000 mls @ 20 mls/hr 08/29/24 12:15 08/29/24 12:24 Saline 0.9% IV 20 mls/hr .Q24H CARLEE Administration Heparin Sodium/Sodium Chloride 250 mls @ 17.391 mls/hr 08/29/24 12:15 08/30/24 07:12 25,000 unit/ Sodium Chloride IV 0 units/kg/hr .[id number] CARLEE 0 mls/hr Titration Protocol 18 UNITS/KG/HR Heparin Sodium (Porcine) 10, 1,001 mls @ 999 mls/hr 08/30/24 07:00 000 unit/ Sodium Chloride IRRIGATION 08/30/24 23:00 ONCE PRN INTRA-OP Heparin Sodium (Porcine) 2,500 250.5 mls @ 250 mls/hr 08/30/24 07:00 unit/ Sodium Chloride IRRIGATION 08/30/24 23:00 ONCE PRN INTRA-OP Sodium Chloride 1,000 ml/ IV 1,000 mls @ 96.615 mls/hr 08/30/24 04:00 08/30/24 02:51 Solution IV 08/30/24 09:59 96.615 mls/hr .[id number] CARLEE Administration 1 ML/KG/HR Naloxone HCl 0.2 mg 08/29/24 12:02 Naloxone 0.4 Mg/Ml 1 Ml Vial IV Q2M PRN Opioid Reversal Objective - Vital Signs Vital signs: Vital Signs Temp 97.6 F 08/29/24 22:30 Pulse 87 08/30/24 03:45 Resp 16 08/30/24 03:45 BP 154/79 08/30/24 03:45 Pulse Ox 97 08/30/24 03:45 FiO2 Intake & Output 08/29/24 08/30/24 08/30/24 18:59 06:59 18:59 Intake Total 740.027 59.064 Balance 740.027 59.064 Weight 96.615 kg 98.9 kg Intake: Intake, IV Titration 200.027 59.064 Amount Heparin Sod,Pork in 0.45% 200.027 59.064 NaCl 25,000 unit In 0.45 % NaCl 1 250ml.bag @ 18 UNITS/KG/HR 17.391 mls/hr IV .[id number] CARLEE Rx#: [id number] Oral 540 Other: Voiding Method Toilet # Voids 1 - Exam GENERAL: The patient is alert and oriented x3, not in any acute distress. Well developed, well nourished. HEENT: Pupils are round and equally reacting to light. EOMI. No scleral icterus. No conjunctival pallor. Normocephalic, atraumatic. No pharyngeal erythema. No thyromegaly. CARDIOVASCULAR: S1 and S2 present. No murmurs, rubs, or gallops. PULMONARY: Chest is clear to auscultation, no wheezing , no crackles. ABDOMEN: Soft, nontender, nondistended, normoactive bowel sounds. No palpable organomegaly. MUSCULOSKELETAL: No joint swelling or deformity. EXTREMITIES: No cyanosis, clubbing, or pedal edema. NEUROLOGICAL: Gross neurological examination did not reveal any focal deficits. SKIN: No rashes. no petechiae. - Labs CBC & Chem 7: 08/29/24 09:08/29/24 09:25 Labs: Abnormal Lab Results - Last 24 Hours (Table) 08/29/24 08/29/24 08/29/24 Range/Units 09:25 09:25 09:25 WBC 11.11 H (4.50-10.00) 10*3/uL RBC 4.15 L (4.40-5.60) 10*6/uL MCV 104.6 H (80.0-97.0) fL MCH 35.7 H (27.0-32.0) pg Eosinophils # 0.36 H (0.04-0.35) 10*3/uL APTT (22.0-30.0) sec Carbon Dioxide 20 L (22-30) mmol/L BUN 23 H (9-20) mg/dL Glucose 112 H (74-99) mg/dL Total Protein 5.9 L (6.3-8.2) g/dL Triglycerides 174.00 H (0.00-149.00) mg/dL HDL Cholesterol 35.80 L (40.00-60.00) mg/dL 08/29/24 08/30/24 Range/Units 18:42 06:18 WBC (4.50-10.00) 10*3/uL RBC (4.40-5.60) 10*6/uL MCV (80.0-97.0) fL MCH (27.0-32.0) pg Eosinophils # (0.04-0.35) 10*3/uL APTT >200.0 H* 123.4 H* (22.0-30.0) sec Carbon Dioxide (22-30) mmol/L BUN (9-20) mg/dL Glucose (74-99) mg/dL Total Protein (6.3-8.2) g/dL Triglycerides (0.00-149.00) mg/dL HDL Cholesterol (40.00-60.00) mg/dL Assessment and Plan Assessment: Left lower extremity ischemia with intermittent claudication and numbness secondary to left common iliac stent #acute iliac artery occlusion on aortic runoff study Chronic atrial fibrillation Hypertension Hyperlipidemia Hypothyroidism Obesity with BMI 33.4 Plan: Continue with heparin drip Continue with aspirin and Lipitor Cardiac team following closely Plan for vascular intervention tomorrow with cardiology team Patient at some risk from the procedure but there is no absolute contraindication Labs and medication were reviewed.. Continue same treatment. Continue with symptomatic treatment. Resume home medication. Monitor labs and vitals. DVT and GI prophylaxis. Further recommendations as per clinical course of the patient DVT prophylaxis: Subcutaneous heparin GI Prophylaxis: Pepcid PT/OT: Pending Prognosis is guarded
[2024-08-30] MEDS ORDERED: ALBUTEROL NEBULIZED 2.5 MG/3 ML INHALATION PRN (08:48)
[2024-08-30] MEDS: SPIRONOLACTONE 25 MG TAB PO SCH (09:23)
[2024-08-30] MEDS: LEVOTHYROXINE 137 MCG TAB PO SCH (09:24)
[2024-08-30] MEDS: TAMSULOSIN 0.4 MG CAP.ER.24H PO SCH ×2 (10:35→10:41)
[2024-08-30] MEDS: IV FLUID CONTINUATION 1,000 ML IV ONE (17:38)
[2024-08-30] MEDS: LIDOCAINE 1% INJ 10MG/ML (20 ML MDV) SQ ONE (17:40)
[2024-08-30] MEDS: MIDAZOLAM 2 MG/2 ML VIAL IVP ONE (17:45)
[2024-08-30] MEDS: fentaNYL (PF) 50 MCG/1 ML VIAL IVP ONE (17:45)
[2024-08-30] MEDS: HEPARIN SODIUM 1,000 UN/ML (10ML VL) IVP ONE (17:50)
[2024-08-30] MEDS: CLOPIDOGREL 75 MG TAB PO ONE (19:32)
[2024-08-30] MEDS: IOPAMIDOL-370 100ML BTL INJ ONE (19:32)
[2024-08-30] MEDS ORDERED: NALOXONE 0.4 MG/ML 1 ML VIAL IVP PRN (19:37)
[2024-08-30] MEDS: HEPARIN SOD,PORK IN 0.45% NACL 25,000 UNIT in 0.45% NACL 1 250ML.BAG IV SCH (19:57)
[2024-08-30] MEDS: ALTEPLASE 10 MG in SODIUM CHLORIDE 0.9% 90 ML IA ONE (19:57)
[2024-08-30 20:20] LABS: Glucose,Whole Blood 90 mg/dL (70-110)
--- NOTE | 2024-08-30 20:47 | IR ---
EXAMINATION TYPE: IR angio abdominal w runoff Intraoperative/procedural fluoroscopic services were pr ovided. Total fluoroscopy time is 37.3 minutes with a total of 696 submitted images to PACS. Please s ee the operative/procedural note for further details. Total DAP: 198 Gycm2 Administrative purposes only. [facility], , 08/30/2024 8:44 PM
[2024-08-30 20:49] LABS: Basophils # (A) 0.06 10*3/uL (0.00-0.10); Basophils % (A) 0.5 %; Eosinophils # (A) 0.30 10*3/uL (0.04-0.35); Eosinophils % (A) 2.5 %; HCT 43.9 % (39.6-50.0); HGB 15.0 g/dL (13.0-17.0); Lymphocytes # (A) 1.89 10*3/uL (0.90-5.00); Lymphocytes % (A) 15.7 %; MCH 36.4 pg (27.0-32.0); MCHC 34.2 g/dL (32.0-37.0); MCV 106.6 fL (80.0-97.0); Monocytes # (A) 0.67 10*3/uL (0.20-1.00); Monocytes % (A) 5.6 %; Neutrophils # (A) 9.06 10*3/uL (1.80-7.70); Neutrophils % (A) 75.3 %; Platelet Count 159 10*3/uL (140-440); RBC 4.12 10*6/uL (4.40-5.60); RDW 12.6 % (11.5-14.5); WBC 12.03 10*3/uL (4.50-10.00)
[2024-08-30 20:55] LABS: Fibrinogen 374.0 mg/dL (200-500); INR 1.1 (<1.2); Prothrombin Time 12.2 sec (10.0-12.5)
[2024-08-30 21:13] LABS: African American GFR (CKD) 76 (>60 ml/min/1.73 sqM); Blood Urea Nitrogen 17 mg/dL (9-20); Non-African American GFR(CKD) 66 (>60 ml/min/1.73 sqM)
[2024-08-30 21:37] LABS: Tear Drop Cells Present
[2024-08-30 21:38] LABS: Rouleaux Present
--- NOTE | 2024-08-30 21:39 | P.PCN ---
Date of Procedure: 08/30/24 Operative Findings: Percutaneous peripheral arterial intervention Performing physician Jewel Altman MD Procedure performed 1. Mechanical thrombectomy from the left external iliac artery and left limb of aortic stent graft using the [place]umb[place] with the extraction of large thrombus burden 2. Balloon angioplasty of the left external iliac artery 3. An abdominal aortogram and bilateral iliac angiogram 4. Ultrasound-guided access of the left common femoral artery Indication Acute limb ischemia in the 74-year-old gentleman who is known to have AAA status post endovascular repair in 2019. He underwent a CTA which showed the acute occlusion of the left limb with the occlusion extend all the way to the distal left external iliac artery Approach Left common femoral artery Complications None Level of sedation Moderate with sedation length of 92 minutes Procedure description After obtaining an informed consent the patient was brought to the cardiac Drum Filler. The left common femoral artery was cannulated using micropuncture technique under ultrasound guidance the micropuncture wire passed easily then I placed initially a 6 Romanian 11 cm sheath at the left common femoral artery but the sheath subsequently upgraded into a 7 Romanian and then an 8 Romanian sheath. Anticoagulation was initiated using heparin with continuous ACT monitoring. Subsequently I was able to cross the acute total occlusion of the left external iliac artery and the wire which was 035 stiff Glidewire was advanced all the way to the distal aorta. The pigtail catheter was advanced over the wire and an aortogram and bilateral iliac angiogram was performed using a power injection and digital subtraction. That revealed total occlusion of the limb from the bifurcation all the way to the external iliac artery with a concerning about the tight lesion was difficult to cross at the junction of the left plan with the ex ternal iliac artery. I did do mechanical aspiration thrombectomy with extraction of large thrombus burden when angiogram was performed after that showing better flow in the left limb but the flow was stopped at the junction of the left limb with the external iliac artery. Balloon angioplasty was performed using 10 mm balloon with the flow was sluggish but better than before. At that point I decided to place a tPA infusion catheter overnight. Under fluoroscopy guidance 10 cm infusion length catheter was placed in the left limb of the aortic stent graft and the catheter was connected into a tPA and the patient will be admitted to the intensive care unit overnight for a second look in the next 24 to 48 hours. Conclusion 1. Acute versus subacute total occlusion of the left limb of aortic stent graft with the occlusion extend all the way to the junction with the left external iliac artery with a concerned about extremely tight lesion at that point ballooned using 10 mm balloon with reduction of stenosis from 99% to 50%. 2. mechanical aspiration thrombectomy for from the left limb of the aortic stent graft in the left external iliac artery with extraction of large thrombus burden but still large residual thrombus burden in spite of the 3. Successful placement of tPA infusion catheter Postprocedure management 1. tPA infusion in the next 24 to 48 hours 2. Second Look angiogram after that
[2024-08-30] MEDS: LATANOPROST 0.005% OPHTH DROPS 2.5 ML BTL BOTH EYES SCH (21:47)
[2024-08-31 02:10] LABS: Basophils # (A) 0.08 10*3/uL (0.00-0.10); Basophils % (A) 0.6 %; Eosinophils # (A) 0.19 10*3/uL (0.04-0.35); Eosinophils % (A) 1.4 %; HCT 41.4 % (39.6-50.0); HGB 13.9 g/dL (13.0-17.0); Lymphocytes # (A) 1.12 10*3/uL (0.90-5.00); Lymphocytes % (A) 8.2 %; MCH 35.6 pg (27.0-32.0); MCHC 33.6 g/dL (32.0-37.0); MCV 106.2 fL (80.0-97.0); Monocytes # (A) 0.68 10*3/uL (0.20-1.00); Monocytes % (A) 5.0 %; Neutrophils # (A) 11.46 10*3/uL (1.80-7.70); Neutrophils % (A) 84.3 %; Platelet Count 142 10*3/uL (140-440); RBC 3.90 10*6/uL (4.40-5.60); RDW 13.0 % (11.5-14.5); WBC 13.60 10*3/uL (4.50-10.00)
[2024-08-31 04:18] LABS: Basophils # (A) 0.07 10*3/uL (0.00-0.10); Basophils % (A) 0.5 %; Eosinophils # (A) 0.11 10*3/uL (0.04-0.35); Eosinophils % (A) 0.8 %; HCT 39.8 % (39.6-50.0); HGB 13.7 g/dL (13.0-17.0); Lymphocytes # (A) 1.01 10*3/uL (0.90-5.00); Lymphocytes % (A) 7.8 %; MCH 36.2 pg (27.0-32.0); MCHC 34.4 g/dL (32.0-37.0); MCV 105.3 fL (80.0-97.0); Monocytes # (A) 0.71 10*3/uL (0.20-1.00); Monocytes % (A) 5.5 %; Neutrophils # (A) 11.00 10*3/uL (1.80-7.70); Neutrophils % (A) 84.9 %; Platelet Count 146 10*3/uL (140-440); RBC 3.78 10*6/uL (4.40-5.60); RDW 12.8 % (11.5-14.5); WBC 12.96 10*3/uL (4.50-10.00)
[2024-08-31 04:21] LABS: African American GFR (CKD) 78 (>60 ml/min/1.73 sqM); Anion Gap 8 mmol/L; Blood Urea Nitrogen 21 mg/dL (9-20); Calcium 9.0 mg/dL (8.4-10.2); Carbon Dioxide 20 mmol/L (22-30); Chloride 109 mmol/L (98-107); Glucose 102 mg/dL (74-99); Non-African American GFR(CKD) 68 (>60 ml/min/1.73 sqM); Potassium 4.4 mmol/L (3.5-5.1); Sodium 137 mmol/L (137-145)
[2024-08-31 04:45] LABS: Fibrinogen 364 mg/dL (200-500); INR 1.1 (<1.2); Prothrombin Time 12.0 sec (10.0-12.5)
[2024-08-31 05:18] LABS: Partial Thromboplastin Time >200.0 sec (22.0-30.0)
[2024-08-31] MEDS: LEVOTHYROXINE 137 MCG TAB PO SCH (06:20)
[2024-08-31 07:33] LABS: RBC Morphology Normal
[2024-08-31 08:12] LABS: INR 1.1 (<1.2); Partial Thromboplastin Time 90.2 sec (22.0-30.0); Prothrombin Time 12.1 sec (10.0-12.5)
[2024-08-31] MEDS: ONDANSETRON 4 MG/2 ML VIAL IVP PRN (10:46)
[2024-08-31] MEDS: PANTOPRAZOLE 40 MG/10 ML VIAL IVP SCH (10:46)
[2024-08-31] MEDS: ALTEPLASE 10 MG in SODIUM CHLORIDE 0.9% 90 ML IA ONE (10:47)
[2024-08-31] MEDS: LIDOCAINE 4% PATCH TOPICAL SCH (11:24)
--- NOTE | 2024-08-31 11:29 | P.PN ---
Subjective Progress Note Date: 08/31/24 HISTORY OF PRESENTING ILLNESS: 73-year-old with PMH of CAD with previous CABG, cardiomyopathy, paroxysmal atrial fibrillation, hypertension dyslipidemia AAA s/p endovascular repair, carotid disease status post right carotid endarterectomy, known to Dr. Hodge Presented to the hospital because of paresthesias and numbness in left lower extremity along with symptoms of intermittent claudication. He reports that just walking in his house he would have charley horses in his leg mostly limited to the left thigh. Due to this he presented to the ER. ....................................................... ................................................................................ ....... Home cardiac medications torsemide 10, Aldactone 25, Entresto 49/51 twice daily, metoprolol 50 in a.m. 20 5 at night, losartan 100, Farxiga 10, Lipitor 80, aspirin 81, Eliquis 5 twice daily, amiodarone 100 Pertient Labs: Hb 14, BUN 23, creatinine 1.18, troponin negative, NT-proBNP 390, TSH 1.4 EKG: [ ] Pertient Imaging: CT aorta with runoff shows left common iliac occlusion, external iliac occlusion with reconstitution at common femoral artery, infrarenal aortic aneurysm 3.9 cm with mural thrombus, prostate hypertrophy, large left lateral bladder diverticulum, severe coronary artery atherosclerosis, bilateral adenoma right middle pulmonary nodule 6 mm ................................................... ................................................................................ ........... Prior cardiac testing: Echo from 04/2024 shows an EF of 25 to 30%, mild tricuspid regurgitation mild mitral regurgitation ................................................................................ .............................................................. Progress note 08/31/2024 Patient seen in ICU. Yesterday patient underwent left lower extremity PTCA biopsy lateral approach from SFA. Currently patient has a femoral sheath in place along with tPA catheter infusing tPA and heparin. Last night heparin was running at a high rate of 50 mL instead of 5 mL and therefore the patient's PTT was high and patient was oozing from the sheath site. This was identified this morning and PTT was monitored. Currently heparin has been held for 2 hours. Will repeat PTT, once normalizes we will start heparin drip at 5 mL. Will continue the femoral sheath until tomorrow and plan for possible repeat PTCA for tomorrow. N.p.o. after midnight ........................................................... ................................................................................ ... PHYSICAL EXAMINATION: Neck: Brisk carotid upstroke, no jugular venous distention. Lungs: Clear to auscultation. Heart: Regular rate and rhythm, S1-S2, mild systolic murmur Abdomen: Soft nontender, positive bowel sounds. Extremities: Good pulses right lower extremity. Poor pulses left lower extremity, left extremity appears cool to touch, mild skin changes noticed. No mottling, no ulcers, no cyanosis. Neuro: Alert, oritented, no focal deficits. Detailed neuro exam was not performed. .......................... ................................................................................ .................................... 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 # Prior history of PAD with AAA with endovascular repair # Prior history of carotid stenosis status post right carotid endarterectomy # Nonischemic cardiomyopathy with a EF of 25 to 30%, NYHA class III, currently euvolemic # CAD status post CABG # Paroxysmal atrial fibrillation # Hypertension, dyslipidemia PLAN: Continue with femoral sheath tPA infusion and heparin infusion. Hold heparin drip until PTT normalizes and then start at 5 mL rate N.p.o. after midnight for possible peripheral intervention tomorrow with Dr. Hodge Continue aspirin, Lipitor, hold Eliquis Start Demadex 10 mg, losartan 25 mg and metoprolol 25 twice daily Continue amiodarone, Monitor kidney function electrolytes Objective - Vital Signs Vital signs: Vital Signs Temp 98.9 F 08/31/24 04:00 Pulse 78 08/31/24 07:00 Resp 20 08/31/24 07:00 BP 139/85 08/31/24 07:00 Pulse Ox 95 08/31/24 07:00 FiO2 Intake & Output 08/30/24 08/31/24 08/31/24 18:59 06:59 18:59 Intake Total 279.064 625 50 Output Total 200 100 Balance 279.064 425 -50 Weight 101.1 kg Intake: IV 220 Invasive Line 1 20 Intake, IV Titration 59.064 625 50 Amount Heparin Sod,Pork in 0.45% 59.064 NaCl 25,000 unit In 0.45 % NaCl 1 250ml.bag @ 18 UNITS/KG/HR 17.391 mls/hr IV .[id number] CARLEE Rx#: [id number] Sodium Chloride 0.9% 1, 250 50 000 ml @ 50 mls/hr IV . Q20H CARLEE Rx#:[id number] Sodium Chloride 0.9% 1, 375 000 ml In Empty Bag 1 bag @ 75 mls/hr IV .[id number] CARLEE Rx#:[id number] Output: Urine 200 100 Other: Voiding Method Toilet External Catheter # Voids 3 - Labs CBC & Chem 7: 08/31/24 03:32 08/31/24 03:32 Labs: Abnormal Lab Results - Last 24 Hours (Table) 08/30/24 08/30/24 08/31/24 Range/Units 14:25 20:30 01:10 WBC 12.03 H 13.60 H (4.50-10.00) 10*3/uL RBC 4.12 L 3.90 L (4.40-5.60) 10*6/uL MCV 106.6 H 106.2 H (80.0-97.0) fL MCH 36.4 H 35.6 H (27.0-32.0) pg Immature Gran # 0.05 H 0.07 H (0.00-0.04) 10*3/uL Neutrophils # 9.06 H 11.46 H (1.80-7.70) 10*3/uL APTT 61.0 H (22.0-30.0) sec Chloride (98-107) mmol/L Carbon Dioxide (22-30) mmol/L BUN (9-20) mg/dL Glucose (74-99) mg/dL 08/31/24 08/31/24 08/31/24 Range/Units 03:32 03:32 03:32 WBC 12.96 H (4.50-10.00) 10*3/uL RBC 3.78 L (4.40-5.60) 10*6/uL MCV 105.3 H (80.0-97.0) fL MCH 36.2 H (27.0-32.0) pg Immature Gran # 0.06 H (0.00-0.04) 10*3/uL Neutrophils # 11.00 H (1.80-7.70) 10*3/uL APTT >200.0 H* (22.0-30.0) sec Chloride 109 H (98-107) mmol/L Carbon Dioxide 20 L (22-30) mmol/L BUN 21 H (9-20) mg/dL Glucose 102 H (74-99) mg/dL 08/31/24 Range/Units 07:29 WBC (4.50-10.00) 10*3/uL RBC (4.40-5.60) 10*6/uL MCV (80.0-97.0) fL MCH (27.0-32.0) pg Immature Gran # (0.00-0.04) 10*3/uL Neutrophils # (1.80-7.70) 10*3/uL APTT 90.2 H (22.0-30.0) sec Chloride (98-107) mmol/L Carbon Dioxide (22-30) mmol/L BUN (9-20) mg/dL Glucose (74-99) mg/dL
--- NOTE | 2024-08-31 12:58 | XR ---
Abdomen HISTORY: Nausea COMPARISON: None TECHNIQUE: Single supine portable view of the abdomen was obtained. FINDINGS: Bowel gas pattern is nonspecific and there is no evidence of obstruction. There are multiple aortic s tents and left iliac stent. The osseous structures are intact. There is no suspicious calcification. IMPRESSION: Nonspecific abdomen. No evidence of bowel obstruction. [facility], Workstation: [facility], 08/31/2024 12:56 PM
[2024-08-31] MEDS: METOCLOPRAMIDE 5 MG/ML 2 ML VIAL IVP STA (13:02)
[2024-08-31] MEDS: METOPROLOL TARTRATE 25 MG TAB PO SCH (15:52)
[2024-08-31] MEDS: TORSEMIDE 20 MG TAB PO SCH (15:52)
[2024-08-31] MEDS: HYDROcodone/APAP 5-325MG 1 EACH TAB PO PRN (16:29)
[2024-08-31] MEDS: LOSARTAN 25 MG TAB PO SCH (16:29)
[2024-08-31 22:44] LABS: Basophils # (A) 0.05 10*3/uL (0.00-0.10); Basophils % (A) 0.4 %; Eosinophils # (A) 0.08 10*3/uL (0.04-0.35); Eosinophils % (A) 0.6 %; HCT 36.0 % (39.6-50.0); HGB 12.5 g/dL (13.0-17.0); Lymphocytes # (A) 1.24 10*3/uL (0.90-5.00); Lymphocytes % (A) 9.0 %; MCH 37.1 pg (27.0-32.0); MCHC 34.7 g/dL (32.0-37.0); Monocytes # (A) 1.10 10*3/uL (0.20-1.00); Monocytes % (A) 8.0 %; Neutrophils # (A) 11.27 10*3/uL (1.80-7.70); Neutrophils % (A) 81.6 %; Platelet Count 147 10*3/uL (140-440); RBC 3.37 10*6/uL (4.40-5.60); RDW 12.6 % (11.5-14.5); WBC 13.80 10*3/uL (4.50-10.00)
[2024-08-31 22:52] LABS: MCV 106.8 fL (80.0-97.0)
--- NOTE | 2024-09-01 00:23 | P.PN ---
Subjective Patient is a pleasant 74 years old male with past medical history of multiple medical problems including history of atrial fibrillation Patient presents because of left leg numbness in his left leg that happens even with walking for short distances associated with pain in the left thigh with walking He denies chest pain or dyspnea. No GI/ symptoms. No neurological symptoms no smoking alcohol illicit drugs. Has no fever blood pressure is stable. Labs showing mild leukocytosis 11.1 other CBC BMP LFT INR troponin were negative. Aortic runoff study showing left common iliac stent and external iliac artery occlusions Patient was started on heparin drip and admitted for cardiology team intervention for possible intervention tomorrow 08/30 Patient is awake alert he has uneventful night He remains on a heparin drip and aspirin and other cardiac medication except metoprolol per banquet pilot His both legs look warmer today especially the left side is where the occlusion is. No resting pain. No other new complaint. No chest pain or dyspnea. Patient complaint to undergo angioplasty and possible stent placement in his left lower extremity with Dr. Hodge today Renal monitor kidney function check labs in the morning 09/01 Patient had an eventful last night He remains on heparin drip He underwent Mechanical thrombectomy and Balloon angioplasty of the left external iliac artery and left limb of aortic stent graft Patient today remains in the ICU, left lower extremity looks warmer than the right. He has femoral sheath access to the left groin with heparin and tPA infusing directly Blood pressure stable WBC 11.1. Hemoglobin stable Eliquis on hold Patient planned to undergo another procedure tomorrow. Review of systems CONSTITUTIONAL: No fever, no malaise, no fatigue. HEENT: No recent visual problems or hearing problems. Denied any sore throat. CARDIOVASCULAR: No orthopnea, PND, no palpitations, no syncope. PULMONARY: No shortness of breath, no cough, no hemoptysis. GASTROINTESTINAL: No diarrhea, no nausea, no vomiting, no abdominal pain. Normoactive bowel sounds. NEUROLOGICAL: No headaches, no weakness, no numbness. Active Medications Generic Name Dose Route Start Last Admin Trade Name Freq PRN Reason Stop Dose Admin Hydrocodone Bitart/Acetaminophen 1 each 08/31/24 16:09 08/31/24 16:29 Hydrocodone/Apap 5-325mg 1 Each Tab PO 1 each Q6HR PRN Administration Pain Albuterol Sulfate 2.5 mg 08/30/24 08:48 Albuterol Nebulized 2.5 Mg/3 Ml INHALATION RT-QID PRN Shortness Of Breath Alprazolam 0.5 mg 08/29/24 18:14 Alprazolam 0.5 Mg Tab PO Q6HR PRN Moderate Anxiety Amiodarone HCl 100 mg 08/29/24 18:15 08/31/24 15:51 Amiodarone 100 Mg Tab PO 100 mg DAILY CARLEE Administration Aspirin 81 mg 08/29/24 13:45 08/31/24 16:29 Aspirin 81 Mg PO 81 mg DAILY CARLEE Administration Atorvastatin Calcium 40 mg 08/29/24 21:00 08/31/24 20:49 Atorvastatin 40 Mg Tab PO 40 mg HS CARLEE Administration Sodium Chloride 1,000 mls @ 50 mls/hr 08/29/24 12:15 08/31/24 10:47 Saline 0.9% IV 50 mls/hr .Q20H CARLEE Administration Heparin Sodium/Sodium Chloride 250 mls @ 5 mls/hr 08/30/24 19:30 08/31/24 00:11 25,000 unit/ Sodium Chloride IV 5 mls/hr .Q24H CARLEE Administration Alteplase, Recombinant 10 mg/ 100 mls @ 5 mls/hr 08/31/24 09:00 08/31/24 21:42 Sodium Chloride IA 09/01/24 04:59 0 mg/hr .Q20H ONE 0 mls/hr Titration Protocol 0.5 MG/HR Latanoprost 1 drops 08/30/24 21:00 08/31/24 20:49 Latanoprost 0.005% Ophth Drops 2.5 Ml Btl BOTH EYES 1 drops HS CARLEE Administration Levothyroxine Sodium 137 mcg 08/31/24 06:30 08/31/24 06:20 Levothyroxine 137 Mcg Tab PO 137 mcg DAILY@0630 CARLEE Administration Lidocaine 1 patch 08/31/24 09:44 08/31/24 11:24 Lidocaine 4% Patch TOPICAL 1 patch DAILY CARLEE Administration Protocol Losartan Potassium 25 mg 08/31/24 11:30 08/31/24 16:29 Losartan 25 Mg Tab PO 25 mg DAILY CARLEE Administration Metoprolol Tartrate 25 mg 08/31/24 11:30 08/31/24 21:04 Metoprolol Tartrate 25 Mg Tab PO 25 mg BID CARLEE Administration Naloxone HCl 0.2 mg 08/29/24 12:02 Naloxone 0.4 Mg/Ml 1 Ml Vial IV Q2M PRN Opioid Reversal Ondansetron HCl 4 mg 08/31/24 10:02 08/31/24 10:46 Ondansetron 4 Mg/2 Ml Vial IVP 4 mg Q8H PRN Administration Nausea And Vomiting Pantoprazole Sodium 40 mg 08/31/24 10:15 08/31/24 10:46 Pantoprazole 40 Mg/10 Ml Vial IVP 40 mg DAILY CARLEE Administration Spironolactone 25 mg 08/30/24 09:00 08/31/24 16:29 Spironolactone 25 Mg Tab PO 25 mg DAILY CARLEE Administration Tamsulosin HCl 0.8 mg 08/30/24 10:30 08/31/24 15:51 Tamsulosin 0.4 Mg Cap.Er.24h PO 0.8 mg [id number] CARLEE Administration Torsemide 10 mg 08/31/24 11:30 08/31/24 15:52 Torsemide 20 Mg Tab PO 10 mg DAILY CARLEE Administration Objective - Vital Signs Vital signs: Vital Signs Temp 98.9 F 08/31/24 04:00 Pulse 78 08/31/24 07:00 Resp 20 08/31/24 07:00 BP 139/85 08/31/24 07:00 Pulse Ox 95 08/31/24 07:00 FiO2 Intake & Output 08/30/24 08/31/24 08/31/24 18:59 06:59 18:59 Intake Total 279.064 625 50 Output Total 200 100 Balance 279.064 425 -50 Weight 101.1 kg Intake: IV 220 Invasive Line 1 20 Intake, IV Titration 59.064 625 50 Amount Heparin Sod,Pork in 0.45% 59.064 NaCl 25,000 unit In 0.45 % NaCl 1 250ml.bag @ 18 UNITS/KG/HR 17.391 mls/hr IV .[id number] CARLEE Rx#: [id number] Sodium Chloride 0.9% 1, 250 50 000 ml @ 50 mls/hr IV . Q20H CARLEE Rx#:[id number] Sodium Chloride 0.9% 1, 375 000 ml In Empty Bag 1 bag @ 75 mls/hr IV .[id number] CARLEE Rx#:[id number] Output: Urine 200 100 Other: Voiding Method Toilet External Catheter # Voids 3 - Exam GENERAL: The patient is alert and oriented x3, not in any acute distress. Well developed, well nourished. HEENT: Pupils are round and equally reacting to light. EOMI. No scleral icterus. No conjunctival pallor. Normocephalic, atraumatic. No pharyngeal erythema. No thyromegaly. CARDIOVASCULAR: S1 and S2 present. No murmurs, rubs, or gallops. PULMONARY: Chest is clear to auscultation, no wheezing , no crackles. ABDOMEN: Soft, nontender, nondistended, normoactive bowel sounds. No palpable organomegaly. MUSCULOSKELETAL: No joint swelling or deformity. EXTREMITIES: No cyanosis, clubbing, or pedal edema. NEUROLOGICAL: Gross neurological examination did not reveal any focal deficits. SKIN: No rashes. no petechiae. - Labs CBC & Chem 7: 08/31/24 22:15 08/31/24 03:32 Labs: Abnormal Lab Results - Last 24 Hours (Table) 08/30/24 08/30/24 08/31/24 Range/Units 14:25 20:30 01:10 WBC 12.03 H 13.60 H (4.50-10.00) 10*3/uL RBC 4.12 L 3.90 L (4.40-5.60) 10*6/uL MCV 106.6 H 106.2 H (80.0-97.0) fL MCH 36.4 H 35.6 H (27.0-32.0) pg Immature Gran # 0.05 H 0.07 H (0.00-0.04) 10*3/uL Neutrophils # 9.06 H 11.46 H (1.80-7.70) 10*3/uL APTT 61.0 H (22.0-30.0) sec Chloride (98-107) mmol/L Carbon Dioxide (22-30) mmol/L BUN (9-20) mg/dL Glucose (74-99) mg/dL 08/31/24 08/31/24 08/31/24 Range/Units 03:32 03:32 03:32 WBC 12.96 H (4.50-10.00) 10*3/uL RBC 3.78 L (4.40-5.60) 10*6/uL MCV 105.3 H (80.0-97.0) fL MCH 36.2 H (27.0-32.0) pg Immature Gran # 0.06 H (0.00-0.04) 10*3/uL Neutrophils # 11.00 H (1.80-7.70) 10*3/uL APTT >200.0 H* (22.0-30.0) sec Chloride 109 H (98-107) mmol/L Carbon Dioxide 20 L (22-30) mmol/L BUN 21 H (9-20) mg/dL Glucose 102 H (74-99) mg/dL 08/31/24 Range/Units 07:29 WBC (4.50-10.00) 10*3/uL RBC (4.40-5.60) 10*6/uL MCV (80.0-97.0) fL MCH (27.0-32.0) pg Immature Gran # (0.00-0.04) 10*3/uL Neutrophils # (1.80-7.70) 10*3/uL APTT 90.2 H (22.0-30.0) sec Chloride (98-107) mmol/L Carbon Dioxide (22-30) mmol/L BUN (9-20) mg/dL Glucose (74-99) mg/dL Assessment and Plan Assessment: Left lower extremity ischemia with intermittent claudication and numbness secondary to left common iliac stent #acute iliac artery occlusion on aortic runoff study. Status post thrombectomy and balloon angioplasty of the external iliac artery on 08/30 Chronic atrial fibrillation Hypertension Hyperlipidemia Hypothyroidism Obesity with BMI 33.4 Plan: Continue with heparin drip Continue with aspirin and Lipitor Cardiac team following closely Plan for vascular intervention tomorrow with cardiology team Patient at some risk from the procedure but there is no absolute contraindication Labs and medication were reviewed.. Continue same treatment. Continue with symptomatic treatment. Resume home medication. Monitor labs and vitals. DVT and GI prophylaxis. Further recommendations as per clinical course of the patient DVT prophylaxis: Subcutaneous heparin GI Prophylaxis: Pepcid PT/OT: Pending Prognosis is guarded
[2024-09-01] MEDS: SODIUM CHLORIDE 0.9% 500 ML 500 ML IV ONE ×3 (02:20→22:43)
[2024-09-01 06:15] LABS: African American GFR (CKD) 74 (>60 ml/min/1.73 sqM); Anion Gap 6 mmol/L; Blood Urea Nitrogen 30 mg/dL (9-20); Calcium 9.0 mg/dL (8.4-10.2); Carbon Dioxide 21 mmol/L (22-30); Chloride 109 mmol/L (98-107); Glucose 99 mg/dL (74-99); Non-African American GFR(CKD) 64 (>60 ml/min/1.73 sqM); Potassium 4.5 mmol/L (3.5-5.1); Sodium 136 mmol/L (137-145)
[2024-09-01 06:34] LABS: Basophils # (A) 0.05 10*3/uL (0.00-0.10); Basophils % (A) 0.4 %; Eosinophils # (A) 0.14 10*3/uL (0.04-0.35); Eosinophils % (A) 1.1 %; HCT 34.2 % (39.6-50.0); HGB 11.5 g/dL (13.0-17.0); Lymphocytes # (A) 1.30 10*3/uL (0.90-5.00); Lymphocytes % (A) 10.2 %; MCH 36.4 pg (27.0-32.0); MCHC 33.6 g/dL (32.0-37.0); Monocytes # (A) 1.10 10*3/uL (0.20-1.00); Monocytes % (A) 8.6 %; Neutrophils # (A) 10.10 10*3/uL (1.80-7.70); Neutrophils % (A) 79.3 %; Platelet Count 137 10*3/uL (140-440); RBC 3.16 10*6/uL (4.40-5.60); RDW 12.8 % (11.5-14.5); WBC 12.74 10*3/uL (4.50-10.00)
[2024-09-01 06:38] LABS: MCV 108.2 fL (80.0-97.0)
[2024-09-01] MEDS: fentaNYL (PF) 50 MCG/ML 2 ML AMP IVP ONE (08:45)
[2024-09-01] MEDS: MIDAZOLAM 2 MG/2 ML VIAL IVP ONE (08:45)
[2024-09-01] MEDS: IV FLUID CONTINUATION 1,000 ML IV ONE (08:50)
[2024-09-01] MEDS: IOPAMIDOL-370 100ML BTL INJ ONE (08:58)
[2024-09-01] MEDS ORDERED: NALOXONE 0.4 MG/ML 1 ML VIAL IVP PRN (09:07)
--- NOTE | 2024-09-01 09:17 | P.PCN ---
Date of Procedure: 09/01/24 Operative Findings: Second Look angiogram after tPA infusion Performing physician Jewel Altman MD Procedure performed 1. Removal of tPA infusion catheter 2. Second look angiogram after tPA infusion 3. An aortogram and bilateral lower extremities angiogram Indication The patient is a pleasant 74-year-old gentleman with history of AAA status post endovascular repair and multiple comorbid conditions including cardiomyopathy. He was admitted to the hospital with acute limb ischemia. He underwent a CTA and subsequently angiogram which revealed the occlusion of the left limb of the aortic stent graft with large thrombus burden. He underwent mechanical aspiration thrombectomy 2 days ago with removal of large thrombus burden and in spite of that he continues to have large thrombus burden. The decision was made towards placement of tPA infusion catheter for 24 to 48 hours and bring the patient for second look angiogram Approach Left common femoral artery Complication None Level of sedation Moderate with sedation length of 13 minutes Procedure description After obtaining informed consent the patient was brought to the cardiac Park Ranger. The patient was prepped and draped in the usual sterile fashion. Subsequently conscious sedation was initiated. After that I placed an 035 J- wire inside the tPA infusion catheter and the catheter was removed. Subsequently I advanced a 5 Bahamian pigtail catheter over the 035 wire to the aorta and I did an aortogram and bilateral lower extremities angiogram using digital subtraction with power injection. The procedure was completed with no complication Selective peripheral angiogram The distal aorta appeared to have if any small residual of thrombus. The right and left limb of the aortic stent graft appeared to be free from any large thrombus burden with a lesion at the junction of the aortic stent graft to the [place] external iliac artery on the left side appeared to be in the range of 50%. The lesion was ballooned few days ago when the patient underwent an angiogram because it was very tight. Both external iliac arteries appear to have mild disease only. Both femoral arteries appear to have mild to moderate diffuse disease with no evidence of high-grade stenosis. Both profunda are patent. Both SFA appeared to be having only mild disease only. Both popliteal appeared to have mild disease only as well. It appears that there are 3 vessels runoff below the knee bilaterally with a sluggish flow on the right more than th e left. Conclusion 1. History of acute limb ischemia with large thrombus burden involving the left limb of aortic stent graft associated with a tight lesion involving the junction of the lymph with the external iliac artery on the left side 2. Status post mechanical aspiration thrombectomy with removal of large thrombus burden with balloon angioplasty of the lesion on the left side as above with reduction of stenosis from 99% to 50% 3. Status post tPA infusion for almost 48 hours with no evidence of any residual thrombus at this point with reasonable flow in both limbs of the aortic stent graft 4. Bilateral lower extremities runoff was performed and showed reasonable flow all the way to the feet with more sluggish on the right than the left Plan 1. Remove the 8 Bahamian sheath from the left common femoral artery and achieve good hemostasis 2. Once hemostasis achieved I would definitely start the patient on triple therapy including aspirin and Plavix and oral anticoagulation 3. Further plan for stenting of the junction of the left limb of the aortic stent graft with the left external iliac artery
--- NOTE | 2024-09-01 09:46 | IR ---
IR angiogram, abdominal with runoff. HISTORY: TPA check. COMPARISON: 08/30/2024. TECHNIQUE: 1.9 minutes of fluoroscopy and multiple spot films and arteriograms performed of the abdom inal, pelvic and lower extremity arteries were obtained. FINDINGS: Contrast injection through the pigtail catheter and surrounding the left common femoral artery reveal s patency of the distal dominant aortic stent and stents within the common and external iliac arterie s bilaterally. There are no filling defects within the inflow, outflow or left lower extremity runoff vessels. IMPRESSION: Abdominal, pelvic and lower extremity arteriogram as described above. 1.9 minutes of fluoroscopy was provided [facility], , 09/01/2024 9:43 AM
[2024-09-01] MEDS: SODIUM CHLORIDE 0.9% 1,000 ML in EMPTY BAG 1 BAG IV SCH (10:02)
[2024-09-01] MEDS: SODIUM FERRIC GLUCONAT-SUCROSE 125 MG in SODIUM CHLORIDE 0.9% 100 ML IVPB ONE (13:15)
[2024-09-01] MEDS: CLOPIDOGREL 75 MG TAB PO SCH (13:15)
[2024-09-01] MEDS: APIXABAN 5 MG TAB PO SCH (13:17)
[2024-09-01] MEDS: PANTOPRAZOLE 40 MG TABLET PO SCH (16:49)
[2024-09-01 19:26] LABS: Basophils # (A) 0.03 10*3/uL (0.00-0.10); Basophils % (A) 0.2 %; Eosinophils # (A) 0.15 10*3/uL (0.04-0.35); Eosinophils % (A) 1.2 %; HCT 33.4 % (39.6-50.0); HGB 11.3 g/dL (13.0-17.0); Immature Platelet Fraction 7.5 % (1.1-6.1); Lymphocytes # (A) 1.39 10*3/uL (0.90-5.00); Lymphocytes % (A) 10.8 %; MCH 36.5 pg (27.0-32.0); MCHC 33.8 g/dL (32.0-37.0); MCV 107.7 fL (80.0-97.0); Monocytes # (A) 1.05 10*3/uL (0.20-1.00); Monocytes % (A) 8.1 %; Neutrophils # (A) 10.21 10*3/uL (1.80-7.70); Neutrophils % (A) 79.2 %; Platelet Count 138 10*3/uL (140-440); RBC 3.10 10*6/uL (4.40-5.60); RDW 12.7 % (11.5-14.5); WBC 12.90 10*3/uL (4.50-10.00)
--- NOTE | 2024-09-02 01:56 | P.PN ---
Subjective Patient is a pleasant 74 years old male with past medical history of multiple medical problems including history of atrial fibrillation Patient presents because of left leg numbness in his left leg that happens even with walking for short distances associated with pain in the left thigh with walking He denies chest pain or dyspnea. No GI/ symptoms. No neurological symptoms no smoking alcohol illicit drugs. Has no fever blood pressure is stable. Labs showing mild leukocytosis 11.1 other CBC BMP LFT INR troponin were negative. Aortic runoff study showing left common iliac stent and external iliac artery occlusions Patient was started on heparin drip and admitted for cardiology team intervention for possible intervention tomorrow 08/30 Patient is awake alert he has uneventful night He remains on a heparin drip and aspirin and other cardiac medication except metoprolol per order processing clerk His both legs look warmer today especially the left side is where the occlusion is. No resting pain. No other new complaint. No chest pain or dyspnea. Patient complaint to undergo angioplasty and possible stent placement in his left lower extremity with Dr. Hodge today Renal monitor kidney function check labs in the morning 08/31 Patient had an eventful last night He remains on heparin drip He underwent Mechanical thrombectomy and Balloon angioplasty of the left external iliac artery and left limb of aortic stent graft Patient today remains in the ICU, left lower extremity looks warmer than the right. He has femoral sheath access to the left groin with heparin and tPA infusing directly Blood pressure stable WBC 11.1. Hemoglobin stable Eliquis on hold Patient planned to undergo another procedure tomorrow. 09/01 Patient just came back from procedure in the morning where the tPA catheter was removed but with the sole inside. Pain controlled Blood pressure soft side. Hemoglobin is stable labs looks unremarkable. Patient on aspirin and Plavix and Eliquis resumed after discontinuing heparin drip. No chest pain no other new complaints Case was discussed with cardiac team today Review of systems CONSTITUTIONAL: No fever, no malaise, no fatigue. HEENT: No recent visual problems or hearing problems. Denied any sore throat. CARDIOVASCULAR: No orthopnea, PND, no palpitations, no syncope. PULMONARY: No shortness of breath, no cough, no hemoptysis. GASTROINTESTINAL: No diarrhea, no nausea, no vomiting, no abdominal pain. Normoactive bowel sounds. NEUROLOGICAL: No headaches, no weakness, no numbness. Active Medications Generic Name Dose Route Start Last Admin Trade Name Freq PRN Reason Stop Dose Admin Hydrocodone Bitart/Acetaminophen 1 each 08/31/24 16:09 08/31/24 16:29 Hydrocodone/Apap 5-325mg 1 Each Tab PO 1 each Q6HR PRN Administration Pain Albuterol Sulfate 2.5 mg 08/30/24 08:48 Albuterol Nebulized 2.5 Mg/3 Ml INHALATION RT-QID PRN Shortness Of Breath Alprazolam 0.5 mg 08/29/24 18:14 Alprazolam 0.5 Mg Tab PO Q6HR PRN Moderate Anxiety Amiodarone HCl 100 mg 08/29/24 18:15 09/01/24 10:00 Amiodarone 100 Mg Tab PO 100 mg DAILY [facility] Administration Apixaban 5 mg 09/01/24 12:30 09/01/24 20:47 Apixaban 5 Mg Tab PO 5 mg BID [facility] Administration Protocol Aspirin 81 mg 08/29/24 13:45 09/01/24 10:01 Aspirin 81 Mg PO 81 mg DAILY [facility] Administration Atorvastatin Calcium 40 mg 08/29/24 21:00 09/01/24 20:47 Atorvastatin 40 Mg Tab PO 40 mg HS [facility] Administration Clopidogrel Bisulfate 75 mg 09/01/24 11:15 09/01/24 13:15 Clopidogrel 75 Mg Tab PO 75 mg DAILY [facility] Administration Sodium Chloride 1,000 mls @ 50 mls/hr 08/29/24 12:15 09/02/24 00:01 Saline 0.9% IV 50 mls/hr .Q20H [facility] Administration Latanoprost 1 drops 08/30/24 21:00 09/01/24 20:48 Latanoprost 0.005% Ophth Drops 2.5 Ml Btl BOTH EYES 1 drops HS [facility] Administration Levothyroxine Sodium 137 mcg 08/31/24 06:30 09/01/24 06:01 Levothyroxine 137 Mcg Tab PO 137 mcg DAILY@0630 [facility] Administration Lidocaine 1 patch 08/31/24 09:44 09/01/24 10:01 Lidocaine 4% Patch TOPICAL 1 patch DAILY [facility] Administration Protocol Losartan Potassium 25 mg 08/31/24 11:30 09/01/24 13:16 Losartan 25 Mg Tab PO Not Given DAILY [facility] Metoprolol Tartrate 25 mg 08/31/24 11:30 09/01/24 21:38 Metoprolol Tartrate 25 Mg Tab PO Not Given BID [facility] Naloxone HCl 0.2 mg 09/01/24 09:07 Naloxone 0.4 Mg/Ml 1 Ml Vial IVP Q2M PRN Opioid Reversal Ondansetron HCl 4 mg 08/31/24 10:02 08/31/24 10:46 Ondansetron 4 Mg/2 Ml Vial IVP 4 mg Q8H PRN Administration Nausea And Vomiting Pantoprazole Sodium 40 mg 09/01/24 17:30 09/01/24 16:49 Pantoprazole 40 Mg Tablet PO 40 mg AC-BID [facility] Administration Spironolactone 25 mg 08/30/24 09:00 09/01/24 13:16 Spironolactone 25 Mg Tab PO Not Given DAILY [facility] Tamsulosin HCl 0.8 mg 08/30/24 10:30 09/01/24 10:00 Tamsulosin 0.4 Mg Cap.Er.24h PO 0.8 mg [id number] [facility] Administration Torsemide 10 mg 08/31/24 11:30 09/01/24 10:00 Torsemide 20 Mg Tab PO 10 mg DAILY [facility] Administration Objective - Vital Signs Vital signs: Vital Signs Temp 98.1 F 09/01/24 04:00 Pulse 64 09/01/24 07:00 Resp 20 09/01/24 07:00 BP 130/112 09/01/24 07:00 Pulse Ox 94 L 09/01/24 07:00 FiO2 Intake & Output 08/31/24 09/01/24 09/01/24 18:59 06:59 18:59 Intake Total 650 1104.583 525 Output Total 750 1500 900 Balance -100 -395.417 -375 Weight 98.6 kg Intake: IV 100 Intake, IV Titration 650 1104.583 425 Amount Alteplase 10 mg In Sodium 54.583 Chloride 0.9% 90 ml @ 0. 5 MG/HR 5 mls/hr IA .Q20H [facility] Rx#:[id number] Sodium Chloride 0.9% 1, 650 550 50 000 ml @ 50 mls/hr IV . Q20H [facility] Rx#:[id number] Sodium Chloride 0.9% 1, 375 000 ml In Empty Bag 1 bag @ 75 mls/hr IV .[id number] [facility] Rx#:[id number] Sodium Chloride 0.9% 500 500 ml 500 ml @ 999 mls/hr IV .Q31M [facility] Rx#:[id number] Output: Urine 750 1500 900 Other: Voiding Method External Catheter External Catheter # Voids 1 2 - Exam GENERAL: The patient is alert and oriented x3, not in any acute distress. Well developed, well nourished. HEENT: Pupils are round and equally reacting to light. EOMI. No scleral icterus. No conjunctival pallor. Normocephalic, atraumatic. No pharyngeal erythema. No thyromegaly. CARDIOVASCULAR: S1 and S2 present. No murmurs, rubs, or gallops. PULMONARY: Chest is clear to auscultation, no wheezing , no crackles. ABDOMEN: Soft, nontender, nondistended, normoactive bowel sounds. No palpable organomegaly. MUSCULOSKELETAL: No joint swelling or deformity. EXTREMITIES: No cyanosis, clubbing, or pedal edema. NEUROLOGICAL: Gross neurological examination did not reveal any focal deficits. SKIN: No rashes. no petechiae. - Labs CBC & Chem 7: 09/01/24 18:44 09/01/24 05:21 Labs: Abnormal Lab Results - Last 24 Hours (Table) 08/31/24 09/01/24 09/01/24 Range/Units 22:15 05:21 05:21 WBC 13.80 H 12.74 H (4.50-10.00) 10*3/uL RBC 3.37 L 3.16 L (4.40-5.60) 10*6/uL Hgb 12.5 L 11.5 L (13.0-17.0) g/dL Hct 36.0 L 34.2 L (39.6-50.0) % MCV 106.8 H 108.2 H (80.0-97.0) fL MCH 37.1 H 36.4 H (27.0-32.0) pg Plt Count 137 L (140-440) 10*3/uL Immature Gran # 0.06 H 0.05 H (0.00-0.04) 10*3/uL Neutrophils # 11.27 H 10.10 H (1.80-7.70) 10*3/uL Monocytes # 1.10 H 1.10 H (0.20-1.00) 10*3/uL Sodium 136 L (137-145) mmol/L Chloride 109 H (98-107) mmol/L Carbon Dioxide 21 L (22-30) mmol/L BUN 30 H (9-20) mg/dL Assessment and Plan Assessment: Left lower extremity ischemia with intermittent claudication and numbness s econdary to left common iliac stent #acute iliac artery occlusion on aortic runoff study. Status post thrombectomy and balloon angioplasty of the external iliac artery on 08/30 Chronic atrial fibrillation Hypertension Hyperlipidemia Hypothyroidism Obesity with BMI 33.4 Plan: Stop heparin drip resumed Eliquis Resume cardiac medication per cardiology team. Patient remains in critical condition needs monitoring in the ICU Continue with aspirin and Lipitor Cardiac team following closely Patient at some risk from the procedure but there is no absolute contraindication Labs and medication were reviewed.. Continue same treatment. Continue with symptomatic treatment. Resume home medication. Monitor labs and vitals. DVT and GI prophylaxis. Further recommendations as per clinical course of the patient DVT prophylaxis: Subcutaneous heparin GI Prophylaxis: Pepcid PT/OT: Pending Prognosis is guarded
[2024-09-02 06:22] LABS: Basophils # (A) 0.08 10*3/uL (0.00-0.10); Basophils % (A) 0.6 %; Eosinophils # (A) 0.26 10*3/uL (0.04-0.35); Eosinophils % (A) 2.0 %; HCT 35.2 % (39.6-50.0); HGB 11.8 g/dL (13.0-17.0); Lymphocytes # (A) 1.66 10*3/uL (0.90-5.00); Lymphocytes % (A) 12.6 %; MCH 35.8 pg (27.0-32.0); MCHC 33.5 g/dL (32.0-37.0); Monocytes # (A) 1.04 10*3/uL (0.20-1.00); Monocytes % (A) 7.9 %; Neutrophils # (A) 10.10 10*3/uL (1.80-7.70); Neutrophils % (A) 76.3 %; Platelet Count 140 10*3/uL (140-440); RBC 3.30 10*6/uL (4.40-5.60); RDW 12.7 % (11.5-14.5); WBC 13.22 10*3/uL (4.50-10.00)
[2024-09-02 06:29] LABS: MCV 106.7 fL (80.0-97.0)
[2024-09-02 06:47] LABS: African American GFR (CKD) 81 (>60 ml/min/1.73 sqM); Anion Gap 7 mmol/L; Blood Urea Nitrogen 24 mg/dL (9-20); Calcium 9.0 mg/dL (8.4-10.2); Carbon Dioxide 24 mmol/L (22-30); Chloride 104 mmol/L (98-107); Glucose 96 mg/dL (74-99); Non-African American GFR(CKD) 70 (>60 ml/min/1.73 sqM); Potassium 4.2 mmol/L (3.5-5.1); Sodium 135 mmol/L (137-145)
--- NOTE | 2024-09-02 07:36 | P.PN ---
Subjective Progress Note Date: 09/02/24 PROGRESS NOTE The patient is a 74-year-old male with a history of paroxysmal atrial fibrillation, peripheral vascular disease, history of CAD status post CABG endovascular repair of abdominal aortic aneurysm who presented with acute limb ischemia of the left side, underwent intervention and tPA treatment by Dr. Altman. His catheter was removed yesterday. He is feeling better this morning. He denies any chest discomfort, dizziness or palpitations. He is in atrial fibrillation with episodes of rapid ventricular response. He has no PND or orthopnea, his blood pressure has been under good control at home. His echocardiogram showed an ejection fraction of 25 to 30% with mild mitral and tricuspid regurgitation. Medications: Amiodarone 100 mg daily, Eliquis 5 mg twice a day, aspirin once a day, Lipitor 40 mg daily, Plavix 75 mg daily, losartan 25 mg daily, metoprolol tartrate 25 mg twice a day, Protonix, spironolactone 25 mg daily, torsemide 10 mg daily, Flomax. PHYSICAL EXAMINATION: Blood pressure 118/60 heart rate 110 LUNGS: Clear to auscultation HEART: Irregular rate and rhythm, S1, S2. No S3. Systolic ejection murmur ABDOMEN: Soft, nontender, no organomegaly EXTREMETIES: No edema, left foot warm, left groin no hematoma LAB: Hemoglobin 11.8, WBC 13.2, BUN 24, creatinine 1.04 IMPRESSION: 1. Acute limb ischemia status post revascularization 2. History of CAD status post CABG 3. Ischemic cardiomyopathy 4. Paroxysmal atrial fibrillation 5. History of hyperlipidemia 6. Status post abdominal aortic aneurysm endovascular repair PLAN: 1. Continue present therapy 2. Increase beta-lalito and change to metoprolol succinate 3. Follow blood pressure and if stable increase losartan 4. Restart Farxiga 5. Follow renal functions Objective - Vital Signs Vital signs: Vital Signs Temp 98.7 F 09/02/24 04:00 Pulse 112 H 09/02/24 07:00 Resp 16 09/02/24 07:00 BP 118/68 09/02/24 07:00 Pulse Ox 99 09/02/24 07:00 FiO2 Intake & Output 09/01/24 09/02/24 09/02/24 18:59 06:59 18:59 Intake Total 1500 1050 50 Output Total 2300 400 100 Balance -800 650 -50 Weight 98.4 kg Intake: IV 100 Intake, IV Titration 1400 1050 50 Amount Sodium Chloride 0.9% 1, 200 550 50 000 ml @ 50 mls/hr IV . Q20H [facility] Rx#:[id number] Sodium Chloride 0.9% 1, 600 000 ml In Empty Bag 1 bag @ 75 mls/hr IV .[id number] [facility] Rx#:[id number] Sodium Chloride 0.9% 500 500 500 ml 500 ml @ 999 mls/hr IV .Q31M [facility] Rx#:[id number] Sodium Ferric Gluconat- 100 Sucrose 125 mg In Sodium Chloride 0.9% 100 ml @ 100 mls/hr IVPB ONCE [facility] Rx#:[id number] Output: Urine 2300 400 100 Other: Voiding Method External Catheter External Catheter # Voids 2 ABP, PAP, CO, CI - Last Documented Arterial Blood Pressure 85/49 - Labs CBC & Chem 7: 09/02/24 05:28 07 05:28 Labs: Abnormal Lab Results - Last 24 Hours (Table) 09/01/24 09/02/24 09/02/24 Range/Units 18:44 05:28 05:28 WBC 12.90 H 13.22 H (4.50-10.00) 10*3/uL RBC 3.10 L 3.30 L (4.40-5.60) 10*6/uL Hgb 11.3 L 11.8 L (13.0-17.0) g/dL Hct 33.4 L 35.2 L (39.6-50.0) % MCV 107.7 H 106.7 H (80.0-97.0) fL MCH 36.5 H 35.8 H (27.0-32.0) pg Plt Count 138 L (140-440) 10*3/uL Immature Gran # 0.07 H 0.08 H (0.00-0.04) 10*3/uL Neutrophils # 10.21 H 10.10 H (1.80-7.70) 10*3/uL Monocytes # 1.05 H 1.04 H (0.20-1.00) 10*3/uL Immature Plt Fraction 7.5 H (1.1-6.1) % Sodium 135 L (137-145) mmol/L BUN 24 H (9-20) mg/dL
[2024-09-02] MEDS: DAPAGLIFLOZIN PROPANEDIOL 10 MG TABLET PO SCH (08:59)
[2024-09-02] MEDS: METOPROLOL SUCCINATE (ER) 25 MG TAB.ER.24H PO SCH (08:59)
[2024-09-03 04:04] VITALS: RESP 20
[2024-09-03 05:43] LABS: Basophils # (A) 0.08 10*3/uL (0.00-0.10); Basophils % (A) 0.7 %; Eosinophils # (A) 0.38 10*3/uL (0.04-0.35); Eosinophils % (A) 3.3 %; HCT 31.6 % (39.6-50.0); HGB 10.5 g/dL (13.0-17.0); Immature Platelet Fraction 7.1 % (1.1-6.1); Lymphocytes # (A) 1.78 10*3/uL (0.90-5.00); Lymphocytes % (A) 15.6 %; MCH 35.6 pg (27.0-32.0); MCHC 33.2 g/dL (32.0-37.0); MCV 107.1 fL (80.0-97.0); Monocytes # (A) 0.97 10*3/uL (0.20-1.00); Monocytes % (A) 8.5 %; Neutrophils # (A) 8.10 10*3/uL (1.80-7.70); Neutrophils % (A) 71.2 %; Platelet Count 141 10*3/uL (140-440); RBC 2.95 10*6/uL (4.40-5.60); RDW 12.8 % (11.5-14.5); WBC 11.39 10*3/uL (4.50-10.00)
[2024-09-03 06:08] LABS: African American GFR (CKD) 68 (>60 ml/min/1.73 sqM); Anion Gap 6 mmol/L; Blood Urea Nitrogen 22 mg/dL (9-20); Calcium 9.0 mg/dL (8.4-10.2); Carbon Dioxide 26 mmol/L (22-30); Chloride 103 mmol/L (98-107); Glucose 92 mg/dL (74-99); Non-African American GFR(CKD) 59 (>60 ml/min/1.73 sqM); Potassium 4.0 mmol/L (3.5-5.1); Sodium 135 mmol/L (137-145)
--- NOTE | 2024-09-03 07:12 | P.PN ---
Subjective Progress Note Date: 09/03/24 PROGRESS NOTE The patient is a 74-year-old male with a history of paroxysmal atrial fibrillation, peripheral vascular disease, history of CAD status post CABG endovascular repair of abdominal aortic aneurysm who presented with acute limb ischemia of the left side, underwent intervention and tPA treatment by Dr. Altman. His catheter was removed yesterday. He is feeling better this morning. He denies any chest discomfort, dizziness or palpitations. He is in atrial fibrillation with episodes of rapid ventricular response. He has no PND or orthopnea, his blood pressure has been under good control at home. His echocardiogram showed an ejection fraction of 25 to 30% with mild mitral and tricuspid regurgitation. September 03: The patient feels well this morning, he denies any chest discomfort, dizziness or palpitations. He is ambulating to the bathroom without difficulties. He is in sinus mechanism with episodes of atrial fibrillation. He denies any nausea or vomiting. His left foot feels well. Medications: Amiodarone 100 mg daily, Eliquis 5 mg twice a day, aspirin once a day, Lipitor 40 mg daily, Plavix 75 mg daily, losartan 25 mg daily, metoprolol succinate 25 mg twice a day, Protonix, spironolactone 25 mg daily, torsemide 10 mg daily, Flomax. PHYSICAL EXAMINATION: Blood pressure 98/68 heart rate 65 LUNGS: Clear to auscultation HEART: Irregular rate and rhythm, S1, S2. No S3. Systolic ejection murmur, 2/6 ABDOMEN: Soft, nontender, no organomegaly EXTREMETIES: Trace edema, left foot warm, LAB: Hemoglobin 10.5, WBC 11.3, BUN 22, creatinine 1.19 IMPRESSION: 1. Acute limb ischemia status post revascularization 2. History of CAD status post CABG 3. Ischemic cardiomyopathy 4. Paroxysmal atrial fibrillation 5. History of hyperlipidemia 6. Status post abdominal aortic aneurysm endovascular repair PLAN: 1. Continue present therapy 2. Increase physical activity 3. If stable discharge home today 4. Continue triple anticoagulation 5. Follow-up with Dr. Altman next week. Objective - Vital Signs Vital signs: Vital Signs Temp 98.3 F 09/03/24 04:00 Pulse 69 09/03/24 04:00 Resp 20 09/03/24 04:00 BP 95/68 09/03/24 04:00 Pulse Ox 97 09/03/24 04:00 FiO2 Intake & Output 09/02/24 09/03/24 09/03/24 18:59 06:59 18:59 Intake Total 720 50 Output Total 1125 1025 Balance -405 -975 Intake: IV 550 50 Sodium Chloride 0.9% 1, 550 50 000 ml @ 50 mls/hr IV . Q20H [facility] Rx#:[id number] Intake, IV Titration 50 Amount Sodium Chloride 0.9% 1, 50 000 ml @ 50 mls/hr IV . Q20H [facility] Rx#:[id number] Oral 120 Output: Urine 1125 1025 Other: Voiding Method External Catheter Toilet Urinal # Voids 1 ABP, PAP, CO, CI - Last Documented Arterial Blood Pressure 85/49 - Labs CBC & Chem 7: 09/03/24 05:18 09/03/24 05:18 Labs: Abnormal Lab Results - Last 24 Hours (Table) 09/03/24 09/03/24 Range/Units 05:18 05:18 WBC 11.39 H (4.50-10.00) 10*3/uL RBC 2.95 L (4.40-5.60) 10*6/uL Hgb 10.5 L (13.0-17.0) g/dL Hct 31.6 L (39.6-50.0) % MCV 107.1 H (80.0-97.0) fL MCH 35.6 H (27.0-32.0) pg Immature Gran # 0.08 H (0.00-0.04) 10*3/uL Immature Plt Fraction 7.1 H (1.1-6.1) % Sodium 135 L (137-145) mmol/L BUN 22 H (9-20) mg/dL
--- NOTE | 2024-09-03 07:19 | P.PN ---
Subjective Progress Note Date: 09/02/24 Patient evaluated today in follow up in the ICU. Sitting up on the edge of bed with at the bedside. Left leg with positive dorsalis pedis pulse, warm and patient denies any pain. He underwent Mechanical thrombectomy and Balloon angioplasty of the left external iliac artery and left limb of aortic stent graft. Patient underwent TPA infusion and sheath was removed yesterday. Blood pressure into the 90s systolic today and heart rate has been fluctuating above 100. He remains in atrial fibrillation. Patient hoping for discharge he is not quite ready. Cardiology adjusting medications and patient continues on oral metoprolol. Labs today reveal white blood cell count 13.22, hgb 11.8, sodium 135, BUN 24, creatinine 1.04. BP down to 83/60 this afternoon. Review of systems CONSTITUTIONAL: No fever, no malaise, no fatigue. HEENT: No recent visual problems or hearing problems. Denied any sore throat. CARDIOVASCULAR: No orthopnea, PND, no palpitations, no syncope. PULMONARY: No shortness of breath, no cough, no hemoptysis. GASTROINTESTINAL: No diarrhea, no nausea, no vomiting, no abdominal pain. Normoactive bowel sounds. NEUROLOGICAL: No headaches, no weakness, no numbness. PHYSICAL EXAMINATION: GENERAL: The patient is alert and oriented x3, not in any acute distress. Well developed, well nourished. HEENT: Pupils are round and equally reacting to light. EOMI. No scleral icterus. No conjunctival pallor. Normocephalic, atraumatic. No pharyngeal erythema. No thyromegaly. CARDIOVASCULAR: S1 and S2 present. No murmurs, rubs, or gallops. PULMONARY: Chest is clear to auscultation, no wheezing or crackles. ABDOMEN: Soft, nontender, nondistended, normoactive bowel sounds. No palpable organomegaly. MUSCULOSKELETAL: No joint swelling or deformity. EXTREMITIES: No cyanosis, clubbing, or pedal edema. NEUROLOGICAL: Gross neurological examination did not reveal any focal deficits. SKIN: No rashes. Assessement Left lower extremity ischemia with intermittent claudication and numbness secondary to left common iliac stent #acute iliac artery occlusion on aortic runoff study. Status post thrombectomy and balloon angioplasty of the external iliac artery on 08/30 Chronic atrial fibrillation with RVR Hypotension Hypertension Hyperlipidemia Hypothyroidism Obesity with BMI 33.4 Former smoker GI prophylaxis DVT prophylaxis Full Code Plan Continue ICU monitoring Continue eliquis Continue with aspirin and Lipitor Cotinue metoprolol twice daily Continue farxiga Continue normal saline at 50 mls/hr. Repeat BMP/CBC tomorrow Patient encouraged to increase activity level The impression and plan of care has been dictated by Meaghan Ashby, Nurse Practitioner as directed. Dr. Laurie MD I have performed a history and physical examination and medical decision making of this patient, discussed the same with the dictator, and agree with the dictators assessment and plan as written, documented as a scribe. Based on total visit time, I have performed more than 50% of this visit. Objective - Vital Signs Vital signs: Vital Signs Temp 98.7 F 09/02/24 04:00 Pulse 103 H 09/02/24 08:30 Resp 10 L 09/02/24 08:30 BP 110/63 09/02/24 08:30 Pulse Ox 95 09/02/24 08:30 FiO2 Intake & Output 09/01/24 09/02/24 09/02/24 18:59 06:59 18:59 Intake Total 1500 1050 100 Output Total 2300 400 100 Balance -800 650 0 Weight 98.4 kg Intake: IV 100 50 Sodium Chloride 0.9% 1, 50 000 ml @ 50 mls/hr IV . Q20H [facility] Rx#:[id number] Intake, IV Titration 1400 1050 50 Amount Sodium Chloride 0.9% 1, 200 550 50 000 ml @ 50 mls/hr IV . Q20H [facility] Rx#:[id number] Sodium Chloride 0.9% 1, 600 000 ml In Empty Bag 1 bag @ 75 mls/hr IV .[id number] [facility] Rx#:[id number] Sodium Chloride 0.9% 500 500 500 ml 500 ml @ 999 mls/hr IV .Q31M [facility] Rx#:[id number] Sodium Ferric Gluconat- 100 Sucrose 125 mg In Sodium Chloride 0.9% 100 ml @ 100 mls/hr IVPB ONCE [facility] Rx#:[id number] Output: Urine 2300 400 100 Other: Voiding Method External Catheter External Catheter # Voids 2 ABP, PAP, CO, CI - Last Documented Arterial Blood Pressure 85/49 - Labs CBC & Chem 7: 09/03/24 05:18 09/03/24 05:18 Labs: Abnormal Lab Results - Last 24 Hours (Table) 09/01/24 09/02/24 09/02/24 Range/Units 18:44 05:28 05:28 WBC 12.90 H 13.22 H (4.50-10.00) 10*3/uL RBC 3.10 L 3.30 L (4.40-5.60) 10*6/uL Hgb 11.3 L 11.8 L (13.0-17.0) g/dL Hct 33.4 L 35.2 L (39.6-50.0) % MCV 107.7 H 106.7 H (80.0-97.0) fL MCH 36.5 H 35.8 H (27.0-32.0) pg Plt Count 138 L (140-440) 10*3/uL Immature Gran # 0.07 H 0.08 H (0.00-0.04) 10*3/uL Neutrophils # 10.21 H 10.10 H (1.80-7.70) 10*3/uL Monocytes # 1.05 H 1.04 H (0.20-1.00) 10*3/uL Immature Plt Fraction 7.5 H (1.1-6.1) % Sodium 135 L (137-145) mmol/L BUN 24 H (9-20) mg/dL Assessment and Plan Time with Patient: Less than 30
[2024-09-03 08:07] LABS: Anisocytosis (M) Present
[2024-09-03 11:30] VITALS: BP 92/57; PULSE 58; TEMP 97.6
== END 2024-09-03 14:48 | disposition home health service (06) | DRG 271 ==
LOC: EC 08:41 → 3SCARD 12:04 → 2SICU 08-30 20:14
PROVIDERS: ADMIT Hospitalist; ATTEND Hospitalist
PROC: 3E05317 Introduction of Other Thrombolytic into Peripheral Artery, Percutaneous Approach (ICD-10-PCS; 2024-08-30)
PROC: 04CJ3ZZ Extirpation of Matter from Left External Iliac Artery, Percutaneous Approach (ICD-10-PCS; principal; 2024-08-30 11:30)
PROC: 04VJ3DZ Restriction of Left External Iliac Artery with Intraluminal Device, Percutaneous Approach (ICD-10-PCS; 2024-08-30 11:30)
PROC: 04CJ3ZZ Extirpation of Matter from Left External Iliac Artery, Percutaneous Approach (ICD-10-PCS; 2024-08-30 11:30)
PROC: B4101ZZ Fluoroscopy of Abdominal Aorta using Low Osmolar Contrast (ICD-10-PCS; 2024-08-30 11:30)
PROC: B41D1ZZ Fluoroscopy of Aorta and Bilateral Lower Extremity Arteries using Low Osmolar Contrast (ICD-10-PCS; 2024-09-01)
DX: I70.222 Atherosclerosis of native arteries of extremities with rest pain, left leg (principal); I42.8 Other cardiomyopathies; E89.0 Postprocedural hypothyroidism; I10 Essential (primary) hypertension; I08.1 Rheumatic disorders of both mitral and tricuspid valves; I71.43 Infrarenal abdominal aortic aneurysm, without rupture; E66.9 Obesity, unspecified; I48.0 Paroxysmal atrial fibrillation; Z95.828 Presence of other vascular implants and grafts; Z68.33 Body mass index [BMI] 33.0-33.9, adult; E78.5 Hyperlipidemia, unspecified; I25.10 Atherosclerotic heart disease of native coronary artery without angina pectoris; N32.3 Diverticulum of bladder; N40.0 Benign prostatic hyperplasia without lower urinary tract symptoms; R91.1 Solitary pulmonary nodule; I25.5 Ischemic cardiomyopathy; I95.9 Hypotension, unspecified; Z79.01 Long term (current) use of anticoagulants; Z79.84 Long term (current) use of oral hypoglycemic drugs; Z79.890 Hormone replacement therapy; Z79.82 Long term (current) use of aspirin; Z86.79 Personal history of other diseases of the circulatory system; Z87.891 Personal history of nicotine dependence; Z82.49 Family history of ischemic heart disease and other diseases of the circulatory system; Z95.1 Presence of aortocoronary bypass graft; I25.2 Old myocardial infarction; Z85.850 Personal history of malignant neoplasm of thyroid; Z79.899 Other long term (current) drug therapy
CPT/HCPCS: 36415; 37184; 37211; 37214; 37220; 71275; 74018; 75625; 75635; 80048; 80053; 80061; 82565; 83036; 83605; 83735; 83880; 84443; 84484; 84520; 85025; 85384; 85610; 85730; 86850; 86900; 86901; 93005; 93923; 96361; 96365; 96366; 99291